=== PATIENT | female | born 1950 | race African-American/Black ===

== ENCOUNTER 2016-03-12 12:27 | Emergency (ER) | payer MEDICARE, OTHER ==
[~2016-03-12] VITALS: Ht 167.6 cm; Wt 54.0 kg
[~2016-03-12 12:27] MED LIST: ATOR20TA PO; CALTTAB5 PO; Calcium Carbonate CHEW; DARU600 PO; FENO160T2 PO; FERR324T4 PO; FOSA70TA PO; FURO1TAB93 PO; GABA100C4 PO; KLOR20TA6 PO; LATA0.00 OP; LEVO50TA4 PO; MIRTA15 PO; NITR-29 PO; PROT40TA PO; RALT400 PO; RITO100 PO; SENE8.6T PO; SUPETAB30 PO; TRUVTAB2 PO
[2016-03-12 12:34] VITALS: BP 93/58; PULSE 82; RESP 20; TEMP 98.6; O2SAT 99
[2016-03-12] MEDS ORDERED: FOSA70TA PO (13:03)
[2016-03-12] MEDS ORDERED: ATOR20TA15 PO (13:03)
[2016-03-12 13:05] LABS: AUTOMATED NEUTROPHIL # 10.5 TH/MM3 (1.8-7.7); BASOPHIL # 0.1 TH/MM3 (0-0.2); BASOPHIL % 0.7 % (0.0-2.0); EOSINOPHIL # 0.1 TH/MM3 (0-0.4); EOSINOPHIL % 0.7 % (0.0-4.0); LYMPH % 21.2 % (9.0-44.0); MEAN CELL VOLUME 92.4 FL (80.0-100.0); MEAN CORPUSCULAR HEMOGLOBIN 29.2 PG (27.0-34.0); MEAN CORPUSCULAR HGB CONC 31.6 % (32.0-36.0); MONO % 3.7 % (0.0-8.0); NEUT % 73.7 % (16.0-70.0); PLATELET COUNT 397 TH/MM3 (150-450); RED BLOOD COUNT 3.35 MIL/MM3 (4.00-5.30); RED CELL DISTRIBUTION WIDTH 20.2 % (11.6-17.2); WHITE BLOOD COUNT 14.3 TH/MM3 (4.0-11.0)
[2016-03-12 13:06] LABS: HEMO FLAGS AUTO DIFF
[2016-03-12] MEDS ORDERED: COLA100C3 PO (13:07)
[2016-03-12] MEDS ORDERED: CALTTAB PO (13:07)
[2016-03-12] MEDS ORDERED: TUMS500C CHEW (13:07)
--- NOTE | 2016-03-12 13:08 | PD ---
HPI Chief Complaint: General Weakness Time Seen by Provider: 12:47 Travel History International Travel<30 days: No Contact w/Intl Traveler<30days: No Traveled to known affect area: No History of Present Illness HPI 65-year-old woman apparently brought over the patient's request because she's been fatigued ongoing for weeks to months. She is a history of HIV and follows with Dr. Castillo. She reports her most recent viral loads have been undetectable. EMS reports this is been ongoing for some time. Patient states she is here for "everything" including fatigue is been worse the past couple weeks. She is not sleeping well. She feels very tired. She has not been eating well. She also complains of some headaches. History Past Medical History Narrative Medical HIV Anxiety and depression hyperlipidemia Hypertension Hypothyroidism GERD Tetanus Vaccination: > 5 Years Menopausal: Yes Social History Alcohol Use: No Tobacco Use: No (quit) Allergies-Medications (Allergen,Severity, Reaction): Coded Allergies: Od (Verified Allergy, Severe, 03/12/16) Reported Meds & Prescriptions Reported Meds & Active Scripts Active Reported Truvada (Emtricitabine-Tenofovir Disoproxil Fumarate) 200-300 Mg Tab 1 Tab PO DAILY @ 1200 Prochlorperazine Maleate 10 Mg Tab 10 Mg PO TID PRN Milk of Magnesia Liq (Magnesium Hydroxide) 400 Mg/5 Ml Susp 30 Ml PO Q4HR PRN Loperamide (Loperamide HCl) 2 Mg Cap 2 Mg PO DIRECTED PRN Give two capsules for the initial dose then, One capsule after each loose stool. Not to exceed 8 capsules per day. Fleet Enema Rectal (Sodium Phosphates Rectal) 7-19 Gm/118 Ml Enem 118 Ml RECTAL DIRECTED PRN Dulcolax Supp (Bisacodyl) 10 Mg Supp 10 Mg RECTAL DIRECTED PRN Mapap (Acetaminophen) 325 Mg Tab 650 Mg PO Q4HR PRN Mylanta Liq (Lowosnup-Egmbivdlr-Ysyayucnpbw Liq) 200-200-20 Mg/5 Ml Susp 30 Ml PO Q4HR PRN Take between meals or as directed. Shake well. Maximum 120 ml/24 hrs. Latanoprost Opth Drops (Latanoprost) 0.005% Drops 1 Drop EACH EYE HS Refrigerate until opened. [id number] (Ascorbic Acid) 1,000 Mg Tab 1,000 Mg PO DAILY B-12 (Cyanocobalamin) 1,000 Mcg Subl 1,000 Mcg PO BID Tivicay (Dolutegravir Sodium) 50 Mg Tab 50 Mg PO DAILY Thera-M (Multiple Vitamins W/ Minerals) 1 Tab 1 Tab PO DAILY Senna-S 8.6-50 mg (Sennosides-Docusate Sodium) 1 Tab Tab 1 Tab PO TID Prezcobix (Darunavir-Cobicistat) 800-150 Mg Tab 1 Tab PO DAILY K-Tab (Potassium Chloride) 20 Meq Tab 40 Meq PO DAILY Miralax Powder (Polyethylene Glycol 3350 Powder) 17 Gm Powd 17 Gm PO DAILY Mix and dissolve one measuring cap-ful (17 grams) in water or juice. Omeprazole 20 Mg Cap 20 Mg PO DAILY Mirtazapine 15 Mg Tab 15 Mg PO HS Mobic (Meloxicam) 7.5 Mg Tab 7.5 Mg PO DAILY Levothyroxine (Levothyroxine Sodium) 50 Mcg Tab 50 Mcg PO DAILY Lortab (Hydrocodone-Acetaminophen) 5-325 Mg Tab 1 Tab PO TID Glucosamine (Glucosamine Sulfate) 500 Mg Cap 500 Mg PO DAILY Gabapentin 300 Mg Cap 300 Mg PO Q8HR Lasix (Furosemide) 40 Mg Tab 40 Mg PO DAILY @ 1300 Ferrous Sulfate 325 Mg Tab 325 Mg PO TID Fenofibrate 160 Mg Tab 160 Mg PO DAILY Colace (Docusate Sodium) 100 Mg Cap 100 Mg PO TID Caltrate 600+D (Calcium Carbonate-Cholecalciferol) 600-800 Mg-Unit Tab 1 Tab PO BID Tums (Calcium Carbonate (Antacid)) 500 Mg Chew 500 Mg CHEW Q12HR PRN Atorvastatin (Atorvastatin Calcium) 20 Mg Tab 20 Mg PO HS Fosamax (Alendronate Sodium) 70 Mg Tab 70 Mg PO Q7D Review of Systems Except as stated in HPI: all other systems reviewed are Neg Physical Exam Narrative GENERAL: Chronically ill-appearing 65-year-old woman, no acute distress. SKIN: Warm and dry. HEAD: Atraumatic. Normocephalic. CARDIOVASCULAR: Regular rate and rhythm. No murmur appreciated. RESPIRATORY: No accessory muscle use. Clear to auscultation. Breath sounds equal bilaterally. GASTROINTESTINAL: Abdomen soft, non-tender, nondistended. Hepatic and splenic margins not palpable. MUSCULOSKELETAL: No obvious deformities. No edema. NEUROLOGICAL: Awake and alert. No obvious cranial nerve deficits. Motor grossly within normal limits. Normal speech. PSYCHIATRIC: Flat affect. Data Data Last Documented VS Vital Signs Date Time Temp Pulse Resp B/P Pulse Ox O2 Delivery O2 Flow Rate FiO2 03/12/16 12:34 98.6 82 20 93/58 99 Orders Complete Blood Count With Diff (03/12/16 12:43) Comprehensive Metabolic Panel (03/12/16 12:43) Urinalysis - C+S If Indicated (03/12/16 12:43) Urine Culture (03/12/16 12:55) Labs Laboratory Tests Test 03/12/16 12:55 White Blood Count 14.3 TH/MM3 Red Blood Count 3.35 MIL/MM3 Hemoglobin 9.8 GM/DL Hematocrit 31.0 % Mean Corpuscular Volume 92.4 FL Mean Corpuscular Hemoglobin 29.2 PG Mean Corpuscular Hemoglobin 31.6 % Concent Red Cell Distribution Width 20.2 % Platelet Count 397 TH/MM3 Mean Platelet Volume 8.8 FL Neutrophils (%) (Auto) 73.7 % Lymphocytes (%) (Auto) 21.2 % Monocytes (%) (Auto) 3.7 % Eosinophils (%) (Auto) 0.7 % Basophils (%) (Auto) 0.7 % Neutrophils # (Auto) 10.5 TH/MM3 Lymphocytes # (Auto) 3.0 TH/MM3 Monocytes # (Auto) 0.5 TH/MM3 Eosinophils # (Auto) 0.1 TH/MM3 Basophils # (Auto) 0.1 TH/MM3 CBC Comment AUTO DIFF Urine Color STRAW Urine Turbidity MARKED Urine pH 6.5 Urine Specific [place] 1.008 Urine Protein 100 mg/dL Urine Glucose (UA) TRACE mg/dL Urine Ketones NEG mg/dL Urine Occult Blood SMALL Urine Nitrite NEG Urine Bilirubin NEG Urine Urobilinogen LESS THAN 2.0 MG/DL Urine Leukocyte Esterase LARGE Urine RBC 0-3 /hpf Urine WBC 15-19 /hpf Urine WBC Clumps OCC Urine Squamous Epithelial > 8 /hpf Cells Urine Renal Epithelial Cells 0-5 /hpf Urine Bacteria MANY /hpf Microscopic Urinalysis Comment CATH-CULTURE IND Sodium Level 141 MEQ/L Potassium Level 3.0 MEQ/L Chloride Level 112 MEQ/L Carbon Dioxide Level 19.9 MEQ/L Anion Gap 9 MEQ/L Blood Urea Nitrogen 13 MG/DL Creatinine 2.14 MG/DL Estimat Glomerular Filtration 28 ML/MIN Rate Random Glucose 88 MG/DL Calcium Level 7.7 MG/DL Total Bilirubin 0.4 MG/DL Aspartate Amino Transf 39 U/L (AST/SGOT) Alanine Aminotransferase 14 U/L (ALT/SGPT) Alkaline Phosphatase 138 U/L Total Protein 6.4 GM/DL Albumin 1.9 GM/DL [facility] Medical Decision Making Medical Screen Exam Complete: Yes Emergency Medical Condition: Yes Interpretation(s) LABS: CBC remarkable for leukocytosis, mild anemia CMP hypokalemia. UA was some question of pyuria, suggestive of UTI. Differential Diagnosis Weakness, depression, debility, anemia, electrolyte abnormality, other Narrative Course Medical decision making 65-year-old woman generalized weakness and fatigue. Doesn't have any acute findings. We'll check basic labs and UA, discharge senior care, follow-up with physician there. Diagnosis Primary Impression: UTI (lower urinary tract infection) Additional Impression: Hypokalemia Patient Instructions: General Instructions Additional Instructions: Take antibiotics as prescribed. Double your current dose of potassium to 40 meq twice daily for the next 7 days and have repeat labs done with your primary physician. Follow-up with her primary physician. Return to the emergency department for any new or worsening symptoms. Med/Other Pt SpecificInfo: Prescription(s) given Scripts Cephalexin (Keflex)500 Mg [id number] Mg PO Q8H 7 Days Ref 0 Prov:Gelacio Mclaughlin MD 03/12/16 Potassium Chloride ER (K-Tab)20 Meq Tab40 Meq PO BID 7 Days Ref 0 Prov:Gelacio Mclaughlin MD 03/12/16 Disposition: 01 DISCHARGE HOME Condition: Stable Gelacio Mclaughlin MD Mar 12, 2016 13:08
[2016-03-12] MEDS ORDERED: FENO160T PO (13:09)
[2016-03-12] MEDS ORDERED: FERR325T PO (13:09)
[2016-03-12 13:16] LABS: BLOOD, URINE SMALL (NEG); GLUCOSE,URINE TRACE mg/dL (NEG); KETONE, URINE NEG (NEG); NITRITE,URINE NEG (NEG); PH, URINE 6.5 (5.0-8.5); URINE COLOR STRAW (YELLW/STRAW)
[2016-03-12 13:18] LABS: BACTERIA, URINE MANY /hpf; COMMENT (UR) CATH-CULTURE IND; CULTURE IF INDICATED CATH CULTURE IND; RBC, URINE 0-3 /hpf (0-3); SQUAMOUS EPITHELIAL CELL URINE > 8 /hpf (0-5); WBC, URINE 15-19 /hpf (0-5)
[2016-03-12 13:19] LABS: RENAL EPITHELIAL CELLS 0-5 /hpf
[2016-03-12] MEDS ORDERED: GLUC500C5 PO (13:19)
[2016-03-12] MEDS ORDERED: GABA300C5 PO (13:19)
[2016-03-12] MEDS ORDERED: CYAN100025 PO (13:19)
[2016-03-12] MEDS ORDERED: HYDR-3533 PO (13:19)
[2016-03-12] MEDS ORDERED: OMEP20CA2 PO (13:19)
[2016-03-12] MEDS ORDERED: MIRTA15 PO (13:19)
[2016-03-12] MEDS ORDERED: MOBI7.5T PO (13:19)
[2016-03-12] MEDS ORDERED: LEVO50TA4 PO (13:19)
[2016-03-12] MEDS ORDERED: DOLU1TAB PO (13:19)
[2016-03-12] MEDS ORDERED: POTA1TAB4 PO ×2 (13:19→13:45)
[2016-03-12] MEDS ORDERED: SENN8.6T19 PO (13:19)
[2016-03-12] MEDS ORDERED: MIRA33504 PO (13:19)
[2016-03-12] MEDS ORDERED: THERTAB17 PO (13:19)
[2016-03-12] MEDS ORDERED: FURO1TAB60 PO (13:19)
[2016-03-12] MEDS ORDERED: DARU1TAB2 PO (13:19)
[2016-03-12 13:20] LABS: ALKALINE PHOSPHATASE 138 U/L (45-117); TOTAL BILIRUBIN ADULT 0.4 MG/DL (0.2-1.0)
[2016-03-12 13:21] LABS: ALT (GPT) 14 U/L (10-53); ANION GAP 9 MEQ/L (5-15); AST (GOT) 39 U/L (15-37); BICARBONATE 19.9 MEQ/L (21.0-32.0); BLOOD UREA NITROGEN 13 MG/DL (7-18); CHLORIDE 112 MEQ/L (98-107); GLOMERULAR FILTRATION RATE 28 ML/MIN (>89); SODIUM (NA) 141 MEQ/L (136-145)
[2016-03-12] MEDS ORDERED: MAPA325T PO (13:22)
[2016-03-12] MEDS ORDERED: LATA0.002 EACH EYE (13:22)
[2016-03-12] MEDS ORDERED: ASCO10002 PO (13:22)
[2016-03-12] MEDS ORDERED: MYLASUS2 PO (13:22)
[2016-03-12] MEDS ORDERED: DULC10SU3 RECTAL (13:23)
[2016-03-12] MEDS ORDERED: LOPE2CAP PO (13:25)
[2016-03-12] MEDS ORDERED: FLEEENE3 RECTAL (13:25)
[2016-03-12] MEDS ORDERED: MILKSUS PO (13:27)
[2016-03-12] MEDS ORDERED: PROC10TA PO (13:27)
[2016-03-12] MEDS ORDERED: EMTR1TAB PO (13:37)
[2016-03-12 13:42] LABS: METAMYELOCYTES 1 % (0-1); NEUTROPHIL # MANUAL DIFF 11.9 TH/MM3 (1.8-7.7); PLATELET ESTIMATE SMEAR NORMAL (NORMAL); PLATELET MORPHOLOGY NORMAL (NORMAL); POLYS (SEG NEUTROPHILS) 82 % (16-70); SCAN/DIFF FINAL DIFF MANUAL; WBC DIFF SAMPLE 100
[2016-03-12] MEDS ORDERED: CEPH-460 PO (13:45)
== END 2016-03-12 18:32 | disposition home or self-care (01) ==
LOC: NEPA 12:27
DX: N39.0 Urinary tract infection, site not specified (principal); R51 Headache; E78.5 Hyperlipidemia, unspecified; I10 Essential (primary) hypertension; E03.9 Hypothyroidism, unspecified; Z87.891 Personal history of nicotine dependence
CPT/HCPCS: 80053; 81001; 85007; 85027; 87086; 99283

== ENCOUNTER 2016-04-02 15:39 | Inpatient (IN) | payer MEDICARE, OTHER ==
[2016-04-02] VITALS (7 sets, daily range): BP systolic 82–138; BP diastolic 52–66; PULSE 95–115; RESP 18–20; TEMP 97.8–98.9; O2SAT 98–100
[~2016-04-02] VITALS: Ht 165.1 cm; Wt 56.3 kg
[~2016-04-02 15:39] MED LIST changes: +ASCO10002 PO; -ATOR20TA PO; +ATOR20TA15 PO; +CALTTAB PO; -CALTTAB5 PO; +CEPH-460 PO; +COLA100C3 PO; +CYAN100025 PO; -Calcium Carbonate CHEW; +DARU1TAB2 PO; -DARU600 PO; +DOLU1TAB PO; +DULC10SU3 RECTAL; +EMTR1TAB PO; +FENO160T PO; -FENO160T2 PO; -FERR324T4 PO; +FERR325T PO; +FLEEENE3 RECTAL; +FURO1TAB60 PO; -FURO1TAB93 PO; -GABA100C4 PO; +GABA300C5 PO; +GLUC500C5 PO; +HYDR-3533 PO; -KLOR20TA6 PO; -LATA0.00 OP; +LATA0.002 EACH EYE; +LOPE2CAP PO; +MAPA325T PO; +MILKSUS PO; +MIRA33504 PO; +MOBI7.5T PO; +MYLASUS2 PO; -NITR-29 PO; +OMEP20CA2 PO; +POTA1TAB4 PO; +PROC10TA PO; -PROT40TA PO; -RALT400 PO; -RITO100 PO; -SENE8.6T PO; +SENN8.6T19 PO; -SUPETAB30 PO; +THERTAB17 PO; -TRUVTAB2 PO; +TUMS500C CHEW
[2016-04-02] MEDS ORDERED: ONDANSETRON HCL 4 MG/2 ML VIAL IV ONE (16:00)
[2016-04-02] MEDS ORDERED: SODIUM CHLORID 0.9% 500 ML INJ 500 ML IV ONE (16:00)
--- NOTE | 2016-04-02 16:04 | PD ---
HPI Chief Complaint: Abnormal Results Time Seen by Provider: 16:02 Travel History International Travel<30 days: No Contact w/Intl Traveler<30days: No Traveled to known affect area: No History of Present Illness HPI 65-year-old Afro-[place] female coming in from the nursing facility with complaints of decreased food intake, abdominal pain, and refusing to take her meds. Patient has a history of HIV, chronic pain, and mood disorder. Patient is alert and answers appropriately. She complains of pain in the left upper abdomen and central epigastric region. Patient complains of nausea, but no vomiting. She states she has been moving her bowels without difficulty. Patient is allergic to Do. PFSH Past Medical History Anemia: Yes Autoimmune Disease: Yes (AIDS) High Cholesterol: Yes Diminished Hearing: No Genitourinary: Yes (GENITAL HERPES) Hypertension: Yes Immune Disorder: Yes (HIV) Menopausal: Yes Ectopic : Yes (1975) Past Surgical History Abdominal Surgery: Yes (1993---"CYST REMOVED R.SIDE OF ABDOMEN") Social History Alcohol Use: No Tobacco Use: No (quit) Substance Use: No (PATIENT DENIED DRUG USE) Allergies-Medications (Allergen,Severity, Reaction): Coded Allergies: Do (Verified Allergy, Severe, 04/02/16) Reported Meds & Prescriptions Reported Meds & Active Scripts Active Reported Prochlorperazine Maleate 10 Mg Tab 10 Mg PO TID PRN Prochlorperazine Supp (Prochlorperazine) 25 Mg Supp 25 Mg RECTAL QID Zoloft (Sertraline HCl) 25 Mg Tab 25 Mg PO DAILY Megace Liq (Megestrol Acetate) 40 Mg/Ml Susp 400 Mg PO DAILY Descovy (Emtricitabine-Tenofovir Alafenamide) 200-25 mg Tab 1 Tab PO DAILY Potassium Chloride ER (Potassium Chloride) 20 Meq Tab 40 Meq PO DAILY Calcium 600 with Vitamin D (Calcium Carbonate-Cholecalciferol) 600-400 mg-Unit Tab 1 Tab PO BID Milk of Magnesia Liq (Magnesium Hydroxide) 400 Mg/5 Ml Susp 30 Ml PO Q4HR PRN Loperamide (Loperamide HCl) 2 Mg Cap 2 Mg PO DIRECTED PRN Give two capsules for the initial dose then, One capsule after each loose stool. Not to exceed 8 capsules per day. Fleet Enema Rectal (Sodium Phosphates Rectal) 7-19 Gm/118 Ml Enem 118 Ml RECTAL DIRECTED PRN Dulcolax Supp (Bisacodyl) 10 Mg Supp 10 Mg RECTAL DIRECTED PRN Mapap (Acetaminophen) 325 Mg Tab 650 Mg PO Q4HR PRN Mylanta Liq (Kbjwrcsq-Vvewjsiyb-Kfddnjnoldp Liq) 200-200-20 Mg/5 Ml Susp 30 Ml PO Q4HR PRN Take between meals or as directed. Shake well. Maximum 120 ml/24 hrs. Latanoprost Opth Drops (Latanoprost) 0.005% Drops 1 Drop EACH EYE HS Refrigerate until opened. [id number] (Ascorbic Acid) 1,000 Mg Tab 1,000 Mg PO DAILY B-12 (Cyanocobalamin) 1,000 Mcg Subl 1,000 Mcg PO BID Tivicay (Dolutegravir Sodium) 50 Mg Tab 50 Mg PO DAILY Thera-M (Multiple Vitamins W/ Minerals) 1 Tab 1 Tab PO DAILY Senna-S 8.6-50 mg (Sennosides-Docusate Sodium) 1 Tab Tab 1 Tab PO TID Prezcobix (Darunavir-Cobicistat) 800-150 Mg Tab 1 Tab PO DAILY Miralax Powder (Polyethylene Glycol 3350 Powder) 17 Gm Powd 17 Gm PO DAILY Mix and dissolve one measuring cap-ful (17 grams) in water or juice. Omeprazole 20 Mg Cap 20 Mg PO DAILY Levothyroxine (Levothyroxine Sodium) 50 Mcg Tab 50 Mcg PO DAILY Lortab (Hydrocodone-Acetaminophen) 5-325 Mg Tab 1 Tab PO TID Gabapentin 300 Mg Cap 300 Mg PO Q8HR Lasix (Furosemide) 40 Mg Tab 40 Mg PO DAILY @ 1300 Ferrous Sulfate 325 Mg Tab 325 Mg PO TID Fenofibrate 160 Mg Tab 160 Mg PO DAILY Colace (Docusate Sodium) 100 Mg Cap 100 Mg PO TID Tums (Calcium Carbonate (Antacid)) 500 Mg Chew 500 Mg CHEW Q12HR Atorvastatin (Atorvastatin Calcium) 20 Mg Tab 20 Mg PO HS Fosamax (Alendronate Sodium) 70 Mg Tab 70 Mg PO Q7D Review of Systems Except as stated in HPI: all other systems reviewed are Neg General / Constitutional: No: Fever Eyes: No: Visual changes HENT: No: Headaches Cardiovascular: No: Chest Pain or Discomfort Respiratory: No: Shortness of Breath Gastrointestinal: Positive: Nausea, Abdominal Pain, No: Vomiting, Diarrhea Genitourinary: No: Dysuria Musculoskeletal: No: Pain Skin: No Rash Neurologic: No: Weakness Psychiatric: No: Depression Endocrine: No: Polydipsia Hematologic/Lymphatic: No: Easy Bruising Physical Exam Narrative GENERAL: SKIN: Warm and dry. HEAD: Atraumatic. Normocephalic. EYES: Pupils equal and round. No scleral icterus. No injection or drainage. ENT: No nasal bleeding or discharge. Mucous membranes pink and moist. NECK: Trachea midline. No JVD. CARDIOVASCULAR: Regular rate and rhythm. RESPIRATORY: No accessory muscle use. Clear to auscultation. Breath sounds equal bilaterally. GASTROINTESTINAL: Abdomen soft, non-tender, nondistended. Hepatic and splenic margins not palpable. MUSCULOSKELETAL: Extremities without clubbing, cyanosis, or edema. No obvious deformities. NEUROLOGICAL: Awake and alert. No obvious cranial nerve deficits. Motor grossly within normal limits. Five out of 5 muscle strength in the arms and legs. Normal speech. PSYCHIATRIC: Appropriate mood and affect; insight and judgment normal. Data Data Last Documented VS Vital Signs Date Time Temp Pulse Resp B/P Pulse Ox O2 Delivery O2 Flow Rate FiO2 04/02/16 19:31 100 18 138/58 99 Room Air 04/02/16 15:58 97.8 Orders Electrocardiogram (04/02/16 15:54) Complete Blood Count With Diff (04/02/16 15:54) Comprehensive Metabolic Panel (04/02/16 15:54) Prothrombin Time / Inr (Pt) (04/02/16 15:54) Act Partial Throm Time (Ptt) (04/02/16 15:54) Lactic Acid Sepsis Protocol (04/02/16 15:54) Magnesium (Mg) (04/02/16 15:54) Lipase (04/02/16 15:54) Ckmb (Isoenzyme) Profile (04/02/16:54) Troponin I (04/02/16 15:54) Urinalysis - C+S If Indicated (04/02/16 15:54) Blood Culture (04/02/16 15:54) Chest, Single Ap (04/02/16 15:54) Blood Glucose (04/02/16 15:54) Ecg Monitoring (04/02/16 15:54) Iv Access Insert/Monitor (04/02/16 15:54) Oximetry (04/02/16 15:54) Oxygen Administration (04/02/16 15:54) Ondansetron Inj (Zofran Inj) (04/02/16 16:00) Ct Abd/Pel W Iv Contrast(Rout) (04/02/16 15:54) Sodium Chlorid 0.9% 500 Ml Inj (Ns 500 M (04/02/16 16:00) Oral Contrast - Adult (04/02/16 16:03) Diatrizoate Liq ( Gastrocain Liq) (04/02/16 16:31) Sodium Chlor 0.9% 1000 Ml Inj (Ns 1000 M (04/02/16 17:15) Influenzae A/B Antigen (04/02/16 17:13) Cath For Specimen (04/02/16 17:31) Urine Culture (04/02/16 17:50) Ceftriaxone Inj (Rocephin Inj) (04/02/16 20:00) Admit Order (Ed Use Only) (04/02/16 20:17) Labs Laboratory Tests Test 04/02/16 04/02/16 16:00 17:50 White Blood Count 14.3 TH/MM3 Red Blood Count 3.88 MIL/MM3 Hemoglobin 11.7 GM/DL Hematocrit 36.0 % Mean Corpuscular Volume 92.7 FL Mean Corpuscular Hemoglobin 30.1 PG Mean Corpuscular Hemoglobin 32.5 % Concent Red Cell Distribution Width 16.0 % Platelet Count 614 TH/MM3 Mean Platelet Volume 8.4 FL Neutrophils (%) (Auto) 82.1 % Lymphocytes (%) (Auto) 14.5 % Monocytes (%) (Auto) 2.9 % Eosinophils (%) (Auto) 0.3 % Basophils (%) (Auto) 0.2 % Neutrophils # (Auto) 11.7 TH/MM3 Lymphocytes # (Auto) 2.1 TH/MM3 Monocytes # (Auto) 0.4 TH/MM3 Eosinophils # (Auto) 0.0 TH/MM3 Basophils # (Auto) 0.0 TH/MM3 CBC Comment DIFF FINAL Differential Comment Prothrombin Time 11.8 SEC Prothromb Time International 1.1 RATIO Ratio Activated Partial 28.9 SEC Thromboplast Time Sodium Level 132 MEQ/L Potassium Level 3.1 MEQ/L Chloride Level 104 MEQ/L Carbon Dioxide Level 10.2 MEQ/L Anion Gap 18 MEQ/L Blood Urea Nitrogen 12 MG/DL Creatinine 1.45 MG/DL Estimat Glomerular Filtration 44 ML/MIN Rate Random Glucose 85 MG/DL Lactic Acid Level 1.9 mmol/L Calcium Level 9.3 MG/DL Magnesium Level 2.4 MG/DL Total Bilirubin 0.5 MG/DL Aspartate Amino Transf 31 U/L (AST/SGOT) Alanine Aminotransferase 12 U/L (ALT/SGPT) Alkaline Phosphatase 93 U/L Total Creatine Kinase 71 U/L Troponin I 0.04 NG/ML Total Protein 7.2 GM/DL Albumin 2.6 GM/DL Lipase 476 U/L Urine Color COLORLESS Urine Turbidity CLEAR Urine pH 5.5 Urine Specific [place] 1.003 Urine Protein TRACE mg/dL Urine Glucose (UA) NEG mg/dL Urine Ketones 10 mg/dL Urine Occult Blood TRACE Urine Nitrite POS Urine Bilirubin NEG Urine Urobilinogen LESS THAN 2.0 MG/DL Urine Leukocyte Esterase LARGE Urine RBC 2 /hpf Urine WBC 7 /hpf Urine Bacteria FEW /hpf Microscopic Urinalysis Comment CATH-CULTURE IND MDM Medical Decision Making Medical Screen Exam Complete: Yes Emergency Medical Condition: Yes Medical Record Reviewed: Yes Differential Diagnosis Generalized weakness. Abdominal pain. Electrolyte imbalance. Loss of appetite. Infection. Narrative Course Patient is medically stable at time of exam. Labs ordered including CBC, CMP, PT PTT and INR, lipase, urinalysis, lactic acid , blood cultures 2. Rapid influenza is negative for both a and B influenza. IV access is obtained patient is given a 500 mL normal saline bolus. EKG is ordered. Showing sinus tachycardia with nonspecific ST changes. This was reviewed with Dr. Lynn. CBC slight leukocytosis at 14.3. Platelet count is elevated at 614. CMP shows a sodium of 132. Potassium 3.1. Covered access is low at 10.2. Anion gap is 18. Creatinine is 1.45. Albumin is low at 2.6. Lipase is elevated 476. Patient is given an additional 1 L normal saline bolus. Coagulation studies show PT of 11.8. INR 1.1. PTT is 28.9. Urinalysis is suggestive of urinary tract infection. Chest x-ray shows no acute cardiopulmonary disease, only severe degenerative arthrosis arthritis to both shoulders. Per radiologist. Abdominal CT with oral and IV contrast shows renal stones, but no acute process per radiology. Patient is given 1 g Rocephin IV. Patient is discussed and seen with Dr. Angulo. He recommends admission for urinary tract infection with metabolic acidosis. 1950 hrs. call was placed to the [facility] hospitalist group for admission. 2016 hrs. call returned the patient was discussed and the patient was admitted. Diagnosis Primary Impression: UTI (lower urinary tract infection) Additional Impression: Metabolic acidosis Admitting Information Admitting Physician Requests: Admit Condition: Stable Mendez Holloway Apr 02, 2016 16:04
[2016-04-02] MEDS ORDERED: DIATRIZOATE MEGLUM/DIATRIZOATE SOD 9 ML CUP ONE (16:31)
--- NOTE | 2016-04-02 16:38 | PD ---
Physical Exam Date Seen by Provider: Apr 02, 2016 Narrative [facility] with HIV was sent for refusal to take medications Data Data Last Documented VS Vital Signs Date Time Temp Pulse Resp B/P Pulse Ox O2 Delivery O2 Flow Rate FiO2 04/02/16 16:02 99 Room Air 04/02/16 16:02 20 04/02/16 15:58 97.8 113 97/58 Orders Electrocardiogram (04/02/16 15:54) Complete Blood Count With Diff (04/02/16 15:54) Comprehensive Metabolic Panel (04/02/16 15:54) Prothrombin Time / Inr (Pt) (04/02/16 15:54) Act Partial Throm Time (Ptt) (04/02/16 15:54) Lactic Acid Sepsis Protocol (04/02/16 15:54) Magnesium (Mg) (04/02/16 15:54) Lipase (04/02/16 15:54) Ckmb (Isoenzyme) Profile (04/02/16 15:54) Troponin I (04/02/16 15:54) Urinalysis - C+S If Indicated (04/02/16 15:54) Blood Culture (04/02/16 15:54) Chest, Single Ap (04/02/16 15:54) Blood Glucose (04/02/16 15:54) Ecg Monitoring (04/02/16 15:54) Iv Access Insert/Monitor (04/02/16 15:54) Oximetry (04/02/16 15:54) Oxygen Administration (04/02/16 15:54) Ondansetron Inj (Zofran Inj) (04/02/16 16:00) Ct Abd/Pel W Iv Contrast(Rout) (04/02/16 15:54) Sodium Chlorid 0.9% 500 Ml Inj (Ns 500 M (04/02/16 16:00) Oral Contrast - Adult (04/02/16 16:03) Diatrizoate Liq ( Gastroview Liq) (04/02/16 16:31) MDM Supervised Visit with AQUILINO: Yes Narrative Course I, Dr. Lynn, have reviewed the advance practice practitioner's documentation and am in agreement, met with the patient face to face, made the diagnosis, and the medical decision making was done by me. *My assessment and Findings: This is a chronically ill appearing [facility] patient Didi Lynn MD Apr 02, 2016 16:38
[2016-04-02 16:43] LABS: AUTOMATED NEUTROPHIL # 11.7 TH/MM3 (1.8-7.7); BASOPHIL % 0.2 % (0.0-2.0); EOSINOPHIL % 0.3 % (0.0-4.0); HEMO FLAGS DIFF FINAL; LYMPH % 14.5 % (9.0-44.0); LYMPHOCYTE # 2.1 TH/MM3 (1.0-4.8); MEAN CELL VOLUME 92.7 FL (80.0-100.0); MEAN CORPUSCULAR HEMOGLOBIN 30.1 PG (27.0-34.0); MEAN CORPUSCULAR HGB CONC 32.5 % (32.0-36.0); MONO % 2.9 % (0.0-8.0); NEUT % 82.1 % (16.0-70.0); PLATELET COUNT 614 TH/MM3 (150-450); RED BLOOD COUNT 3.88 MIL/MM3 (4.00-5.30); WHITE BLOOD COUNT 14.3 TH/MM3 (4.0-11.0)
--- NOTE | 2016-04-02 16:44 | RADRPT ---
EXAM DATE/TIME: 04/02/2016 16:27 [facility] COMPARISON: CHEST SINGLE AP, November 23, 2014, 22:12. INDICATIONS : Fever, weakness MEDICAL HISTORY : HIV Hypertension. AIDS SURGICAL HISTORY : None. ENCOUNTER: Initial ACUITY: 1 day PAIN SCORE: 0/10 LOCATION: Bilateral chest FINDINGS: A single view of the chest demonstrates the lungs to be symmetrically aerated without evidence of mas s, infiltrate or effusion. The cardiomediastinal contours are unremarkable. Severe degenerative oste oarthritic changes involving both shoulders, unchanged from prior. Osseous structures are otherwise i ntact. CONCLUSION: 1. No acute cardiopulmonary process. 2. 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 Manuel López MD on April 02, 2016 at 16:42 Board Certified Radiologist. This report was verified electronically.
[2016-04-02 16:54] LABS: APTT (PATIENT) 28.9 SEC (24.3-30.1); INTERNATIONAL NORMALIZED RATIO 1.1 RATIO; PROTHROMBIN TIME - PATIENT 11.8 SEC (9.8-11.6)
[2016-04-02 17:08] LABS: ALKALINE PHOSPHATASE 93 U/L (45-117); ALT (GPT) 12 U/L (10-53); ANION GAP 18 MEQ/L (5-15); AST (GOT) 31 U/L (15-37); BICARBONATE 10.2 MEQ/L (21.0-32.0); BLOOD UREA NITROGEN 12 MG/DL (7-18); CHLORIDE 104 MEQ/L (98-107); GLOMERULAR FILTRATION RATE 44 ML/MIN (>89); MAGNESIUM 2.4 MG/DL (1.5-2.5); SODIUM (NA) 132 MEQ/L (136-145); TOTAL BILIRUBIN ADULT 0.5 MG/DL (0.2-1.0)
[2016-04-02 17:11] LABS: CREATINE KINASE 71 U/L (26-192); POTASSIUM 3.1 MEQ/L (3.5-5.1)
[2016-04-02] MEDS ORDERED: MEGE40S PO (17:14)
[2016-04-02] MEDS ORDERED: EMTR1TAB4 PO (17:14)
[2016-04-02] MEDS ORDERED: PROC25SU22 RECTAL (17:14)
[2016-04-02] MEDS ORDERED: CALC1TAB87 PO (17:14)
[2016-04-02] MEDS ORDERED: PROC10TA PO (17:14)
[2016-04-02] MEDS ORDERED: ZOLO25TA PO (17:14)
[2016-04-02] MEDS ORDERED: POTA-163 PO (17:14)
[2016-04-02] MEDS ORDERED: SODIUM CHLOR 0.9% 1000 ML INJ 1,000 ML IV ONE (17:15)
[2016-04-02 18:33] LABS: BACTERIA, URINE FEW /hpf; BLOOD, URINE TRACE (NEG); GLUCOSE,URINE NEG (NEG); KETONE, URINE 10 mg/dL (NEG); PH, URINE 5.5 (5.0-8.5); URINE COLOR COLORLESS (YELLW/STRAW)
[2016-04-02 18:34] LABS: COMMENT (UR) CATH-CULTURE IND; CULTURE IF INDICATED CATH CULTURE IND; NITRITE,URINE POS (NEG)
--- NOTE | 2016-04-02 19:12 | RADRPT ---
EXAM DATE/TIME: 04/02/2016 18:41 [facility] COMPARISON: No previous studies available for comparison. INDICATIONS : Abdominal pain. IV CONTRAST: 71 cc Omnipaque 350 (iohexol) IV ; Cumulative dose for multiple exams. ORAL CONTRAST: Partial prescribed oral contrast ingested. RADIATION DOSE: 5.26 CTDIvol (mGy) MEDICAL HISTORY : None SURGICAL HISTORY : None. ENCOUNTER: Initial ACUITY: 1 day PAIN SCALE: 4/10 LOCATION: Bilateral lower quadrant TECHNIQUE: Volumetric scanning of the abdomen and pelvis was performed. Using automated exposure control and adjustment of the mA and/or kV according to patient size, radiation dose was kept as low as reasonably achievable to obtain optimal diagnostic quality images. FINDINGS: There are three adjacent calcifications in the central aspect of the collecting system measuring 1.4, 1.6 and 1.1 cm in greatest dimension. These occupy much of the central aspect of the left collecting system and have a somewhat staghorn type calculus appearance. Significant hydronephr osis however is not seen. There is a smaller 3 mm nonobstructing calcification seen in the inferior left collecting system. There appears to be a possible 3 mm nonobstructing right renal stone seen. T here is some mild dilatation of the right collecting system and right proximal ureter. A ureteral st one is not seen. The left ureter is normal. There are cysts seen at the right kidney measuring up t o 1.4 cm. The liver, spleen, pancreas and adrenal glands are normal. There is layering calcifications seen dep endently in the gallbladder likely related to milk of calcium versus tiny stones. Significantly dilat ed bowel is not seen. The pelvic structures are grossly intact. The patient has degenerative change in the lumbar spine. There is destructive change of the femoral heads bilaterally with near total de struction of the femoral head on the left. CONCLUSION: 1. Nonobstructing renal stones being much more numerous and larger on the left side. The central prasanna cifications in the left kidney resemble a staghorn calculus. 2. Mild dilatation of the right collecting system and right ureter. This suggests there may have be en a passed stone. A stone in the right ureter is not seen. 3. Destructive changes at the femoral heads bilaterally. These changes appear chronic. These change s could be secondary to underlying process such as prior avascular necrosis, prior trauma or prior in flammatory change including infection or inflammatory arthritis. Marquis Galo MD on April 02, 2016 at 18:56 Board Certified Radiologist. This report was verified electronically.
[2016-04-02] MEDS ORDERED: cefTRIAXone INJ 1,000 MG in SODIUM CHLORIDE 0.9% INJ 100 ML IV ONE (20:00)
[2016-04-02] MEDS ORDERED: NALOXONE HCL 0.4 MG/ML AMP IV PRN (20:30)
[2016-04-02] MEDS ORDERED: SENNOSIDES 8.6 MG TAB PO PRN (20:30)
[2016-04-02] MEDS ORDERED: ACETAMINOPHEN 325 MG TAB PO PRN (20:30)
[2016-04-02] MEDS ORDERED: BISACODYL 10 MG SUPP PR PRN (20:30)
[2016-04-02] MEDS ORDERED: SODIUM CHLORIDE 0.9% FLUSH 5 ML FLUSH FLUSH PRN (20:30)
[2016-04-02] MEDS: HEPARIN SODIUM - SQ 10,000 UNITS/ML VIAL SQ SCH (20:43)
[2016-04-02] MEDS ORDERED: PILL SPLITTER OTHER PRN (21:00)
[2016-04-02] MEDS: FAMOTIDINE 20 MG TAB PO SCH (21:00)
[2016-04-02] MEDS: SODIUM CHLOR 0.9% 1000 ML INJ 1,000 ML IV SCH (21:20)
[2016-04-02] MEDS: SODIUM CHLORIDE 0.9% FLUSH 5 ML FLUSH FLUSH SCH (21:20)
[2016-04-03] VITALS (7 sets, daily range): BP systolic 82–96; BP diastolic 51–62; PULSE 70–103; RESP 18–20; TEMP 96.8–97.6; O2SAT 93–100
[2016-04-03] MEDS: SODIUM CHLOR 0.9% 1000 ML INJ 1,000 ML IV SCH ×2 (06:18→16:18)
[2016-04-03 06:58] LABS: AUTOMATED NEUTROPHIL # 13.6 TH/MM3 (1.8-7.7); BASOPHIL % 0.2 % (0.0-2.0); EOSINOPHIL % 0.2 % (0.0-4.0); HEMATOCRIT 31.6 % (35.0-46.0); LYMPH % 9.4 % (9.0-44.0); LYMPHOCYTE # 1.5 TH/MM3 (1.0-4.8); MEAN CELL VOLUME 92.3 FL (80.0-100.0); MEAN CORPUSCULAR HEMOGLOBIN 30.2 PG (27.0-34.0); MEAN CORPUSCULAR HGB CONC 32.7 % (32.0-36.0); MONO % 3.9 % (0.0-8.0); NEUT % 86.3 % (16.0-70.0); PLATELET COUNT 483 TH/MM3 (150-450); RED BLOOD COUNT 3.42 MIL/MM3 (4.00-5.30); WHITE BLOOD COUNT 15.7 TH/MM3 (4.0-11.0)
[2016-04-03 07:00] LABS: HEMO FLAGS AUTO DIFF
[2016-04-03 07:25] LABS: BICARBONATE 9.9 MEQ/L (21.0-32.0)
[2016-04-03] MEDS ORDERED: ALUMINUM/MAGNESIUM/SIMETH 30 ML CUP PO PRN (07:30)
[2016-04-03] MEDS ORDERED: SOD PHOSPHATE/SOD BIPHOSPHATE (ADULT) ENEMA 133ML RECTAL PRN (07:30)
[2016-04-03] MEDS ORDERED: MAGNESIUM HYDROXIDE SUSP 30 ML CUP PO PRN (07:30)
[2016-04-03] MEDS ORDERED: BISACODYL 10 MG SUPP RECTAL PRN (07:30)
[2016-04-03] MEDS ORDERED: ACETAMINOPHEN 325 MG TAB PO PRN (07:30)
[2016-04-03] MEDS ORDERED: LOPERAMIDE HCL 2 MG CAP PO PRN (07:30)
[2016-04-03 07:31] LABS: POTASSIUM 1.7 MEQ/L (3.5-5.1)
[2016-04-03 08:10] LABS: SCAN/DIFF AUTO DIFF CONFIRMED
[2016-04-03] MEDS: SODIUM CHLORIDE 0.9% FLUSH 5 ML FLUSH FLUSH SCH ×2 (08:19→20:50)
[2016-04-03] MEDS ORDERED: PILL SPLITTER OTHER PRN (08:30)
[2016-04-03] MEDS ORDERED: POTASSIUM CHLORIDE 20 MEQ CONTROLLED RELEASE TAB PO ONE (08:45)
[2016-04-03] MEDS ORDERED: POTASSIUM CHLORIDE 20 MEQ CONTROLLED RELEASE TAB PO SCH (09:00)
[2016-04-03] MEDS: CYANOCOBALAMIN 1,000 MCG TAB PO SCH ×2 (09:00→20:57)
[2016-04-03] MEDS ORDERED: PREZCOBIX PO SCH (09:00)
[2016-04-03] MEDS ORDERED: EMTRICITABINE PO SCH (09:00)
[2016-04-03] MEDS: MEGESTROL ACETATE SUSP 400 MG/10 ML CUP PO SCH (09:00)
[2016-04-03] MEDS ORDERED: cefTRIAXone INJ 1,000 MG in SODIUM CHLORIDE 0.9% INJ 100 ML IV SCH (09:00)
[2016-04-03] MEDS ORDERED: TENOFOVIR ALAFENAMIDE PO SCH (09:00)
[2016-04-03] MEDS ORDERED: DOLUTEGRAVIR SODIUM 50 MG TAB PO SCH (09:00)
--- NOTE | 2016-04-03 09:52 | MH ---
cc: LATONYA PELAYO DATE OF ADMISSION: 04/02/2016 DATE OF 1950 DATE OF ADMISSION April 02, [address] Latonya Pelayo. PRIMARY CARE DOCTOR Dr. Esequiel Polanco PRIMARY INFECTIOUS DOCTOR/HIV DOCTOR . REASON FOR ADMISSION Abdominal pain, nausea, vomiting. HISTORY OF PRESENTING ILLNESS The patient is a very pleasant 65-year-old -[place]ish female who was admitted with a significant past history of HIV, hypercholesterolemia, hypertension, hypothyroidism, GERD and genital herpes. The patient came to the ER because of referral from nursing facility because of complaining of decreased fluid intake abdominal pain and was unable to take her medication. As per the ER physician documentation, recently taking medications. As per the patient, she has no appetite and she has nausea as well as she vomited two times. She was having abdominal pain exacerbation for five weeks. This is on and off, was initially very mild and yesterday it was moderately severe in intensity. The patient states she continues to have nausea and that is why she cannot take any medication. The pain was less in the upper abdomen and also in the upper regions. There are no genitourinary symptoms. She denies any blood in her urine. She came to the ER and in the ER was evaluated by the ER physician. Workup was done and CT scan was done which shows the left kidney nonobstructing renal stones, numerous, enlarged on the left side and also some dilatation. Mild dilatation of the right collecting system and right ureter. This suggests may have been a passed stone. At present the patient has occasional pain as per the patient. She is feeling tired and weak. She has no nausea. She wants to drink water and she wants to eat some. She had her last bowel movement about 2-3 days ago. As per the patient, she has been told by Dr. Mendez that she her blood is acidic. There are no other associated symptoms. PAST MEDICAL HISTORY 1. HIV. 2. Hyperlipidemia 3. Hypertension. 4. Hypothyroidism. 5. Gastroesophageal reflux disease. 6. Genital herpes. PAST SURGICAL HISTORY Positive for history of cyst removed from the right side of the abdomen in 1993. MEDICATIONS Reviewed. Please see EMR. ALLERGIES The patient has allergy to berries. REVIEW OF SYSTEMS As described above, otherwise negative for 10 systems. SOCIAL HISTORY The patient does not drink. Quit smoking a long time ago. Used to do drugs a long time ago. He got HIV from her who is now. Lives in a nursing facility. FAMILY HISTORY Non-contributory. PHYSICAL EXAMINATION GENERAL: The patient is alert and oriented, thin built, ill-looking, cachectic look, lying on bed, very ill-looking, without any apparent cardiorespiratory discomfort. VITAL SIGNS: Afebrile. Pulse is 92, respiratory rate is 20, blood pressure was 87/55. HEENT: Head is atraumatic, normocephalic. Eyes - Sunken eyes. No conjunctival injection, no scleral icterus. Mouth unremarkable. No thrush noted. NECK: Supple. Negative increase in JVD. Central trachea. There are occasional few nodes, nontender, in the posterior neck region bilaterally in the posterior triangle in the bilateral neck region. CHEST: Clear to auscultation. CV: S1 and S2 audible. Unable to hear any S3 gallop. GI: Abdomen is soft, very minimally tender in the left upper quadrant and periumbilical region. No rebound, no guarding. No organomegaly. Positive bowel sounds. MUSCULOSKELETAL: Extremities with no cyanosis or pedal edema appreciated. There is decreased muscle mass. ENERGY ENGINEER: Alert and oriented. Normal facial features, moving her extremities. SKIN: Warm and dry. PSYCH: Appropriate mood and affect. INVESTIGATIONS WBC count was 15.7, hemoglobin was 11.7, now today 10.3, hematocrit was 36, today is 31.6, platelet count was 640 and today is 483. Sodium is 141, potassium was 3.1, today it is 1.78, chloride 115, CO2 of 9.9. Anion gap was 16. BUN 11, creatinine of 1.14. Glucose 72. Lipase is 488. PT is 11.8 and INR and APTT within normal limits. U/A shows urine ketones 10, occult blood trace. Urine nitrates positive, urine bilirubin negative. Urobilinogen less than 2. Urine leukocyte esterase large, RBCs 2, WBCs 7, urine bacteria a few. As per the patient she has on and off diarrhea and constipation and sometimes she needs laxatives, sometimes she needs diarrhea medication. RADIOLOGICAL DATA 1. Abdomen and pelvic CT was done which showed nonobstructive renal stone being much more numerous and larger on the left side. There is central calcification in the left kidney which resembles a staghorn calculus. 2. Mild dilatation of right collecting system and the right ureter. This suggests there may have been a passed stone. A stone in the right ureter is not seen. 3. History of changes at the femoral head bilaterally. These changes of appear chronic. This finding could be secondary to an underlying process such as prior avascular necrosis, prior trauma or prior inflammatory changes including infection or inflammatory arthritis. EKG was done which shows sinus tachy at rate of 114 beats per minute with questionable changes, questionable ST depression in the lateral leads. ASSESSMENT 1. Abdominal pain, nausea, vomiting. 2. UTI. 3. Renal calculus. 4. Metabolic acidosis. 5. Severe hypokalemia. 6. Mild renal insufficiency. 7. Increased lipase. 8. Leukocytosis secondary to above. 9. History of HIV. 10. Cachexia. 11. Malnutrition. 12. Anemia posthydration. 13. History of hyperlipidemia. 14. Hypertension history. 15. Hypothyroidism. 16. GERD. 17. History of genital herpes. PLAN 1. Admit inpatient. 2. IV antibiotics. 3. Consult neurology. 4. Consult Infectious Disease 5. IV fluids with bicarb. 6. Potassium replacement. 7. Check magnesium and phosphorus levels. 8. Discussed with pharmacist about medication. Continue some of home medications as indicated including HIV medications. 9. Discussed with the patient in detail. Discussed with RN. 10. P.o. diet. 11. Further recommendation to follow as per the patient progress CONDITION Guarded. Latonya Pelayo MD JP/KELLY /8:46 AM /9:05 AM
[2016-04-03] MEDS: POLYETHYLENE GLYCOL 17 GM PKG PO SCH (10:00)
[2016-04-03] MEDS: CALCIUM/VITAMIN D 250 MG/125 U TAB PO SCH ×2 (10:00→20:49)
[2016-04-03] MEDS: SODIUM BICARBONATE IV SCH (10:00)
[2016-04-03] MEDS: POTASSIUM CHLORIDE IV SCH (10:00)
[2016-04-03] MEDS: HEPARIN SODIUM - SQ 10,000 UNITS/ML VIAL SQ SCH ×2 (10:00→20:56)
[2016-04-03] MEDS: FENOFIBRATE 145 MG TAB PO SCH (10:00)
[2016-04-03] MEDS: [UNRECOGNIZED DRUG - OTHER] IV SCH (10:00)
[2016-04-03] MEDS: DOCUSATE SODIUM 50 MG/SENNA 8.6 MG TAB PO SCH ×3 (10:01→16:50)
[2016-04-03] MEDS: FAMOTIDINE 20 MG TAB PO SCH ×2 (10:02→20:47)
[2016-04-03] MEDS: LEVOTHYROXINE SODIUM 50 MCG TAB PO SCH (10:02)
[2016-04-03] MEDS: MULTIVITAMINS/MINERALS THERAPEUTIC TAB PO SCH (10:02)
[2016-04-03] MEDS: FERROUS SULFATE 325 MG (65 MG ELEMENTAL IRON) TAB PO SCH ×3 (10:02→16:50)
[2016-04-03] MEDS: CALCIUM CARBONATE 500 MG CHEWABLE TAB CHEW SCH ×2 (10:02→20:50)
[2016-04-03] MEDS: ASCORBIC ACID 500 MG TAB PO SCH (10:02)
[2016-04-03] MEDS: SERTRALINE HCL 50 MG TAB PO SCH (10:03)
[2016-04-03] MEDS: PANTOPRAZOLE SOD 20 MG DELAYED RELEASE TAB PO SCH (10:03)
[2016-04-03] MEDS: DOCUSATE SODIUM 100 MG CAP PO SCH ×3 (10:03→16:50)
[2016-04-03] MEDS: ACETAMINOPHEN/HYDROcodone 325 MG/5 MG TAB PO SCH ×3 (10:03→16:50)
[2016-04-03] MEDS: POTASSIUM CHLOR 20 MEQ PREMIX 100 ML IV SCH ×2 (10:08→12:10)
--- NOTE | 2016-04-03 11:17 | EKG ---
Date Performed: 04/02/2016 Time Performed: 16:19:07 PTAGE: 65 years EKG: SINUS TACHYCARDIA RIGHT ATRIAL ENLARGEMENT INFERIOR MYOCARDIAL INFARCTION ST DEPRESSION, CO NSIDER SUBENDOCARDIAL INJURY Compared to previous tracing, right atrial abnormality, inferior infarct and ST-T abnormalities are new. Clinical correlation needed. ABNORMAL ECG PREVIOUS TRACING : 11/28/2014 19.41 DOCTOR: Juliano Ruiz Interpretating Date/Time 04/03/2016 11:16:56
[2016-04-03 13:38] LABS: BICARBONATE 9.5 MEQ/L (21.0-32.0); MAGNESIUM 2.1 MG/DL (1.5-2.5)
--- NOTE | 2016-04-03 13:43 | PD.CONS ---
History of Present Illness Service Infectious disease Consult Requested By Dr Terrell Pelayo Reason for Consult Evaluate patient with fever Primary Care Physician Esequiel Polanco M.D. Diagnoses: History of Present Illness Patient seen and examined. Records reviewed. Patient is a very poor historian. Patient is a 65-year-old female with known history of HIV, came from the care home, brought into the hospital for further evaluation of abdominal pain , 2 by mouth intake, some nausea and vomiting, and inability to take her medication. She has some mild cough but denies any shortness of breath or any chest pain. The abdominal pain apparently has been present for at least 5 weeks. It has been on and off, and was initially very mild, but it started getting worse one day prior to admission. She has had previous hospitalization for UTI, currently denies any dysuria or any hematuria. She actually went to the emergency room on March 16, and evaluation revealed UTI. She was discharged on Keflex. It's unclear whether she had any fever, but documentation here since presentation, shows that her temperatures have been within normal limits. Her initial WBC was elevated. Chest x-ray was normal. CT and of the abdomen and pelvis showing presence of stones bilaterally, and there are some findings to suggest that she might have had stones that she passed on the right side. Her initial creatinine was greater than 2, and is down to normal. Patient states that her viral load has been undetectable, but she could not tell me what her last T-cell count was. She was last seen by Dr. Mendez her HIV doctor last week. Last November she was hospitalized for UTI and at that time her CD4 count was 569. Patient states that she has not had any change in her HIV medication. Patient still complains of abdominal pain and nausea, but has not had any vomiting. Infectious disease consultation requested to evaluate the patient. Review of Systems Constitutional: COMPLAINS OF: Fatigue, Change in appetite Eyes: DENIES: Eye pain Ears, nose, mouth, throat: DENIES: Nasal discharge, Oral lesions, Throat pain, Ear Pain, Running Nose, Sinus Pain Respiratory: COMPLAINS OF: Cough, DENIES: Sputum production, Shortness of breath Cardiovascular: DENIES: Chest pain, Palpitations Gastrointestinal: COMPLAINS OF: Abdominal pain, Nausea, Vomiting, Anorexia, DENIES: Diarrhea, Difficulty Swallowing Genitourinary: DENIES: Hematuria, Dysuria Musculoskeletal: DENIES: Joint pain, Muscle aches, Joint Swelling Integumentary: DENIES: Pruritus, Rash Hematologic/lymphatic: DENIES: Bruising Immunologic/allergic: DENIES: Eczema, Urticaria Neurologic: DENIES: Headache, Localized weakness Psychiatric: DENIES: Anxiety, Hallucinations, Agitation Past Family Social History Allergies: Coded Allergies: Do (Verified Allergy, Severe, 04/02/16) Past Medical History HIV, last CD4 count in November 22 Hypercholesterolemia Hypothyroidism Hypertension Genital herpes GERD Past Surgical History Cyst removed from the right side of the abdomen in 1993 Active Ordered Medications Tylenol Drury Antacids Fosamax Ascorbic acid Lipitor Dulcolax Calcium carbonate Os-Abhi D Rocephin Vitamin B12 Colace Pepcid TriCor Ferrous sulfate Neurontin Heparin Synthroid Imodium MOM Megace Multivitamin Zofran Protonix MiraLAX Potassium Nikia-Colace Senokot Zoloft Sodium bicarbonate Social History Came from the care home No smoking No alcohol abuse No illicit drug use Physical Exam Vital Signs Vital Signs Date Time Temp Pulse Resp B/P Pulse Ox O2 Delivery O2 Flow Rate FiO2 04/03/16 11:38 86 04/03/16 11:15 97.6 93 20 82/51 100 04/03/16 07:33 97.5 92 20 87/55 99 04/03/16 05:39 96.9 70 18 96/51 93 04/02/16 23:32 98.9 110 18 82/58 98 04/02/16 20:51 95 18 115/52 100 Room Air 04/02/16 19:31 100 18 138/58 99 Room Air 04/02/16 17:43 96 18 134/61 99 Room Air 04/02/16 16:02 99 Room Air 04/02/16 16:02 20 99 Room Air 04/02/16 15:58 97.8 113 20 97/58 100 Room Air 04/02/16 15:58 114 20 98 Room Air 04/02/16 15:45 115 20 118/66 99 Physical Exam GENERAL: This is a thin, well-developed female, awake, but slow to respond, looks chronically ill appearing, not in respiratory distress. SKIN: Cool and dry. Decreased turgor. No generalized rash or ecchymosis. HEAD: Atraumatic. Normocephalic. Has some temporal wasting. No scalp tenderness. EYES: [place] conjunctivae, sunken eyeballs. Pupils equal round and reactive. Extraocular motions intact. No scleral icterus. No injection or drainage. ENT: Nose without bleeding, or purulent drainage. Moist oral mucosa. Throat without erythema, or exudate. Uvula midline. Airway patent. No oral thrush. NECK: Trachea midline. Has some mild cervical lymphadenopathy. Supple, nontender, no meningeal signs. CARDIOVASCULAR: Regular rate and rhythm without murmurs, gallops, or rubs. RESPIRATORY: Clear to auscultation. Breath sounds equal bilaterally. No wheezes , rales, or rhonchi. GASTROINTESTINAL: Abdomen soft, nondistended, bowel sounds are present and normoactive, has diffuse abdominal tenderness, no guarding or rebound. No hepato -splenomegaly, or palpable masses. MUSCULOSKELETAL: Extremities without clubbing, cyanosis, or edema. No joint tenderness, effusion, or edema noted. No calf tenderness. Negative Homans sign bilaterally. Both feet are cool to touch. NEUROLOGICAL: Awake and alert. Cranial nerves II through XII intact. Motor grossly within normal limits. Normal speech. No Babinski or ankle clonus. PSYCH: Calm and cooperative LINE: PIV with no evidence if infection Laboratory Laboratory Tests Test 04/02/16 04/02/16 04/03/16 16:00 17:50 06:25 Prothrombin Time 11.8 Prothromb Time International 1.1 Ratio Activated Partial 28.9 Thromboplast Time Sodium Level 132 141 Potassium Level 3.1 1.7 Chloride Level 104 115 Carbon Dioxide Level 10.2 9.9 Anion Gap 18 16 Blood Urea Nitrogen 12 11 Creatinine 1.45 1.14 Estimat Glomerular Filtration 44 58 Rate Random Glucose 85 72 Lactic Acid Level 1.9 Calcium Level 9.3 8.5 Magnesium Level 2.4 Total Bilirubin 0.5 Aspartate Amino Transf 31 (AST/SGOT) Alanine Aminotransferase 12 (ALT/SGPT) Alkaline Phosphatase 93 Total Creatine Kinase 71 Troponin I 0.04 Total Protein 7.2 Albumin 2.6 Lipase 476 448 White Blood Count 14.3 15.7 Red Blood Count 3.88 3.42 Hemoglobin 11.7 10.3 Hematocrit 36.0 31.6 Mean Corpuscular Volume 92.7 92.3 Mean Corpuscular Hemoglobin 30.1 30.2 Mean Corpuscular Hemoglobin 32.5 32.7 Concent Red Cell Distribution Width 16.0 16.0 Platelet Count 614 483 Mean Platelet Volume 8.4 8.1 Neutrophils (%) (Auto) 82.1 86.3 Lymphocytes (%) (Auto) 14.5 9.4 Monocytes (%) (Auto) 2.9 3.9 Eosinophils (%) (Auto) 0.3 0.2 Basophils (%) (Auto) 0.2 0.2 Neutrophils # (Auto) 11.7 13.6 Lymphocytes # (Auto) 2.1 1.5 Monocytes # (Auto) 0.4 0.6 Eosinophils # (Auto) 0.0 0.0 Basophils # (Auto) 0.0 0.0 CBC Comment DIFF FINAL AUTO DIFF Differential Comment AUTO DIFF CONFIRMED Urine Color COLORLESS Urine Turbidity CLEAR Urine pH 5.5 Urine Specific [place] 1.003 Urine Protein TRACE Urine Glucose (UA) NEG Urine Ketones 10 Urine Occult Blood TRACE Urine Nitrite POS Urine Bilirubin NEG Urine Urobilinogen LESS THAN 2.0 Urine Leukocyte Esterase LARGE Urine RBC 2 Urine WBC 7 Urine Bacteria FEW Microscopic Urinalysis Comment CATH-CULTURE IND Date/Time Procedure Status Source Growth 04/02/16 17:55 Influenza Types A,B Antigen ([facility]) - Final Complete Nasal Washing NEGATIVE FOR FLU A AND B ANTIGEN.... 04/02/16 17:50 Urine Culture - Preliminary Resulted Urine Catheterized Urine Gram Negative Dayo 04/02/16 16:05 Aerobic Blood Culture - Preliminary Resulted Blood Peripheral NO GROWTH IN 1 DAY 04/02/16 16:05 Anaerobic Blood Culture - Preliminary Resulted Blood Peripheral NO GROWTH IN 1 DAY Result Diagram: 04/03/16 0625 04/03/16 0625 Imaging RADIOLOGY STUDIES/FILMS REVIEWED Chest X-Ray 04/02/16 3844 Signed Impressions: Service Date/Time: Saturday, April 02, 2016 16:27 - CONCLUSION: 1. No acute cardiopulmonary process. 2. 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 Manuel López MD Abdomen/Pelvis CT 04/02/16 0931 Signed Impressions: Service Date/Time: Saturday, April 02, 2016 18:41 - CONCLUSION: 1. Nonobstructing renal stones being much more numerous and larger on the left side. The central calcifications in the left kidney resemble a staghorn calculus. 2. Mild dilatation of the right collecting system and right ureter. This suggests there may have been a passed stone. A stone in the right ureter is not seen. 3. Destructive changes at the femoral heads bilaterally. These changes appear chronic. These changes could be secondary to underlying process such as prior avascular necrosis, prior trauma or prior inflammatory change including infection or inflammatory arthritis. Marquis Galo MD Assessment and Plan Assessment and Plan IMPRESSION Sepsis due to source, UC with GNR Complicated UTI, has bilateral stones in GUT, prob passed stones in R side Nausea and vomiting due to UTI, has elevated lipase as well, ?pancreatitis Renal insufficiency likely due to poor po intake and sepsis, improving HIV, previous CD4 count last Oct >500 Failure to thrive RECOMMENDATION Resume HAART Rx Urology has been consulted Fluid hydration Change Rocephin to Cefepime until C/S available Follow C/S Monitor progress Check CD4 counts I will follow along with you Thank you for this consultation Laverne Nunes MD Apr 03, 2016 13:43
[2016-04-03 13:44] LABS: POTASSIUM 2.1 MEQ/L (3.5-5.1)
[2016-04-03] MEDS: CEFEPIME INJ 2,000 MG in SODIUM CHLORIDE 0.9% INJ 100 ML IV SCH (16:23)
[2016-04-03 17:38] LABS: BLOOD, URINE SMALL (NEG); GLUCOSE,URINE NEG (NEG); KETONE, URINE 10 mg/dL (NEG); MUCUS URINE FEW /lpf (OCC); NITRITE,URINE NEG (NEG); SQUAMOUS EPITHELIAL CELL URINE <1 /hpf (0-5); URINE COLOR LIGHT-YELLOW (YELLW/STRAW)
[2016-04-03 17:39] LABS: COMMENT (UR) CATH
[2016-04-03] MEDS: ATORVASTATIN 20 MG TAB PO SCH (20:50)
[2016-04-03] MEDS: GABAPENTIN 300 MG CAP PO SCH (20:50)
[2016-04-03] MEDS: LATANOPROST 0.005% OPHT SOLN 2.5 ML BTL EACH EYE SCH (20:50)
[2016-04-04] VITALS (8 sets, daily range): BP systolic 86–93; BP diastolic 54–65; PULSE 97–109; RESP 17–21; TEMP 96.8–99.3; O2SAT 93–100
[2016-04-04] MEDS: SODIUM CHLOR 0.9% 1000 ML INJ 1,000 ML IV SCH ×2 (01:53→14:58)
[2016-04-04] MEDS: SODIUM BICARBONATE IV SCH ×3 (02:20→19:39)
[2016-04-04] MEDS: CEFEPIME INJ 2,000 MG in SODIUM CHLORIDE 0.9% INJ 100 ML IV SCH ×2 (02:20→16:09)
[2016-04-04] MEDS: [UNRECOGNIZED DRUG - OTHER] IV SCH ×3 (02:20→19:39)
[2016-04-04] MEDS: POTASSIUM CHLORIDE IV SCH ×3 (02:20→19:39)
[2016-04-04] MEDS: LEVOTHYROXINE SODIUM 50 MCG TAB PO SCH (04:52)
[2016-04-04 07:24] LABS: BICARBONATE 10.6 MEQ/L (21.0-32.0)
[2016-04-04 07:32] LABS: POTASSIUM 2.6 MEQ/L (3.5-5.1)
[2016-04-04 07:33] LABS: HEMATOCRIT 27.8 % (35.0-46.0); MEAN CELL VOLUME 90.5 FL (80.0-100.0); MEAN CORPUSCULAR HEMOGLOBIN 29.7 PG (27.0-34.0); MEAN CORPUSCULAR HGB CONC 32.8 % (32.0-36.0); PLATELET COUNT 200 TH/MM3 (150-450); RED BLOOD COUNT 3.07 MIL/MM3 (4.00-5.30); RED CELL DISTRIBUTION WIDTH 15.4 % (11.6-17.2); REVIEW FLAG FINAL; WHITE BLOOD COUNT 17.1 TH/MM3 (4.0-11.0)
[2016-04-04] MEDS: SODIUM CHLORIDE 0.9% FLUSH 5 ML FLUSH FLUSH SCH ×2 (09:00→21:00)
[2016-04-04] MEDS ORDERED: POTASSIUM CHLORIDE 20 MEQ CONTROLLED RELEASE TAB PO SCH (09:00)
[2016-04-04] MEDS: CYANOCOBALAMIN 1,000 MCG TAB PO SCH ×2 (09:00→21:00)
[2016-04-04] MEDS ORDERED: SODIUM CHLOR 0.9% 250 ML INJ 250 ML IV SCH (09:00)
[2016-04-04] MEDS: POLYETHYLENE GLYCOL 17 GM PKG PO SCH (09:00)
[2016-04-04] MEDS ORDERED: POTASSIUM CHLORIDE 20 MEQ CONTROLLED RELEASE TAB PO ONE (09:00)
[2016-04-04] MEDS: POTASSIUM CHLOR 20 MEQ PREMIX 100 ML IV SCH ×2 (09:10→13:13)
[2016-04-04] MEDS: EMTRICITABINE/TENOFOVIR 200 MG/300 MG TAB PO SCH (09:15)
[2016-04-04] MEDS: DOLUTEGRAVIR SODIUM 50 MG TAB PO SCH (09:15)
[2016-04-04] MEDS: DARUNAVIR 800 MG TAB PO SCH (09:15)
--- NOTE | 2016-04-04 09:50 | HHI.PR ---
Subjective Remarks Patient has some more energy Had one somewhat loose stool this morning No abdominal pain No chest pain No shortness of breath next line no cough Okay appetite Review of system for 12 point system otherwise unremarkable Objective Objective Results - Vital Signs Date Time Temp Pulse Resp B/P Pulse Ox O2 Delivery O2 Flow Rate FiO2 04/04/16 07:21 99.3 103 20 86/55 98 04/04/16 04:05 96.9 97 18 92/57 93 04/04/16 00:22 96.8 100 18 93/54 94 04/03/16 21:32 96 04/03/16 19:44 96.8 99 18 96/62 100 04/03/16 15:50 97.6 103 20 82/61 100 04/03/16 11:38 86 04/03/16 11:15 97.6 93 20 82/51 100 Result Diagram: 04/04/16 0635 04/04/16 0635 Other Results Laboratory Tests Test 04/03/16 04/03/16 04/04/16 12:30 17:30 06:35 Sodium Level 140 143 Potassium Level 2.1 2.6 Chloride Level 113 118 Carbon Dioxide Level 9.5 10.6 Anion Gap 18 14 Blood Urea Nitrogen 10 8 Creatinine 1.10 0.92 Estimat Glomerular Filtration 60 74 Rate Random Glucose 95 65 Calcium Level 8.6 7.9 Magnesium Level 2.1 2.0 Urine Color LIGHT-YELLOW Urine Turbidity CLEAR Urine pH 6.0 Urine Specific [place] 1.004 Urine Protein TRACE Urine Glucose (UA) NEG Urine Ketones 10 Urine Occult Blood SMALL Urine Nitrite NEG Urine Bilirubin NEG Urine Urobilinogen LESS THAN 2.0 Urine Leukocyte Esterase LARGE Urine RBC 4 Urine WBC 10 Urine Squamous Epithelial <1 Cells Urine Mucus FEW Microscopic Urinalysis Comment CATH White Blood Count 17.1 Red Blood Count 3.07 Hemoglobin 9.1 Hematocrit 27.8 Mean Corpuscular Volume 90.5 Mean Corpuscular Hemoglobin 29.7 Mean Corpuscular Hemoglobin 32.8 Concent Red Cell Distribution Width 15.4 Platelet Count 200 Mean Platelet Volume 8.7 Hematology Comments Phosphorus Level 0.6 Lipase 139 Date/Time Procedure Status Source Growth 04/02/16 17:55 Influenza Types A,B Antigen ([facility]) - Final Complete Nasal Washing NEGATIVE FOR FLU A AND B ANTIGEN.... 04/02/16 17:50 Urine Culture - Preliminary Resulted Urine Catheterized Urine Gram Negative Dayo 04/02/16 16:05 Aerobic Blood Culture - Preliminary Resulted Blood Peripheral NO GROWTH IN 1 DAY 04/02/16 16:05 Anaerobic Blood Culture - Preliminary Resulted Blood Peripheral NO GROWTH IN 1 DAY Physical Exam Physical Exam GENERAL: The patient is alert and oriented, thin built, ill-looking, cachectic look, lying on bed, very ill-looking, without any apparent cardiorespiratory discomfort. VITAL SIGNS: Reviewed HEENT: Head is atraumatic, normocephalic. Eyes - Sunken eyes. No conjunctival injection, no scleral icterus. Mouth unremarkable. No thrush noted. NECK: Supple. Negative increase in JVD. Central trachea. There are occasional few nodes, nontender, in the posterior neck region bilaterally in the posterior triangle in the bilateral neck region. CHEST: Clear to auscultation. CV: S1 and S2 audible. Unable to hear any S3 gallop. GI: Abdomen is soft, very minimally tender in the left upper quadrant and periumbilical region. No rebound, no guarding. No organomegaly. Positive bowel sounds. MUSCULOSKELETAL: Extremities with no cyanosis or pedal edema appreciated. There is decreased muscle mass. 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 Normal facial features, moving her extremities. SKIN: Warm and dry. PSYCH: Appropriate mood and affect. A/P Assessment and Plan 1. Abdominal pain, nausea, vomiting. 2. UTI. 3. Renal calculus. 4. Metabolic acidosis. 5. Severe hypokalemia. 6. Mild renal insufficiency. 7. Increased lipase. 8. Leukocytosis secondary to above. 9. History of HIV. 10. Cachexia. 11. Malnutrition. 12. Anemia posthydration. 13. History of hyperlipidemia. 14. Hypertension history. 15. Hypothyroidism. 16. GERD. 17. History of genital herpes. PLAN Labs reviewed Still metabolic acidosis, continue IV fluids with bicarbonate Low potassium plan for replacement and will monitor Within normal limits magnesium level Very low phosphorus will replace and monitor Increase WBC count will monitor Anemia post hydration we'll monitor Renal insufficiency improved Increased lipase level within normal limits now Urosepsis/sepsis on admission Appreciate ID consult Continue antibiotics. Awaiting urology consult. Discussed with the patient in detail. Discussed with RN. Encourage by mouth intake Further recommendation to follow as per the patient progress Meds reviewed CONDITION Guarded. Shayy Pelayo MD Apr 04, 2016 09:50
[2016-04-04] MEDS ORDERED: SODIUM PHOSPHATE INJ 30 MMOL in SODIUM CHLOR 0.9% 250 ML INJ 250 ML IV ONE (10:00)
[2016-04-04] MEDS ORDERED: POTASSIUM CL 40 MEQ/30 ML LIQ UDC PO ONE (10:30)
[2016-04-04] MEDS: SERTRALINE HCL 50 MG TAB PO SCH (11:56)
[2016-04-04] MEDS: CALCIUM CARBONATE 500 MG CHEWABLE TAB CHEW SCH ×2 (11:57→21:00)
[2016-04-04] MEDS: DOCUSATE SODIUM 100 MG CAP PO SCH ×3 (11:57→18:00)
[2016-04-04] MEDS: PANTOPRAZOLE SOD 20 MG DELAYED RELEASE TAB PO SCH (11:57)
[2016-04-04] MEDS: CALCIUM/VITAMIN D 250 MG/125 U TAB PO SCH ×2 (11:58→21:00)
[2016-04-04] MEDS: DOCUSATE SODIUM 50 MG/SENNA 8.6 MG TAB PO SCH ×3 (11:59→18:00)
[2016-04-04] MEDS: ACETAMINOPHEN/HYDROcodone 325 MG/5 MG TAB PO SCH ×3 (11:59→19:06)
[2016-04-04] MEDS: ASCORBIC ACID 500 MG TAB PO SCH ×2 (12:00→12:14)
[2016-04-04] MEDS: POTASSIUM CL 40 MEQ/30 ML LIQ UDC PO SCH (12:13)
[2016-04-04] MEDS: FERROUS SULFATE 325 MG (65 MG ELEMENTAL IRON) TAB PO SCH ×3 (12:15→19:06)
[2016-04-04] MEDS: GABAPENTIN 300 MG CAP PO SCH ×2 (12:16→21:00)
[2016-04-04] MEDS: FENOFIBRATE 145 MG TAB PO SCH (12:17)
--- NOTE | 2016-04-04 12:24 | HHI.IDPN ---
Subjective Subjective Remarks Notes reviewed No fever More awake compared to yesterday UC with E coli CD4 pending CO2 still low, on bicarb Antibiotics Cefepime Lines PIV Past Medical History HIV, last CD4 count in November 22 Hypercholesterolemia Hypothyroidism Hypertension Genital herpes GERD Past Surgical History Cyst removed from the right side of the abdomen in 1993 Allergies: Coded Allergies: Do (Verified Allergy, Severe, 04/02/16) Objective . Vital Signs Date Time Temp Pulse Resp B/P Pulse Ox O2 Delivery O2 Flow Rate FiO2 04/04/16 07:21 99.3 103 20 86/55 98 04/04/16 04:05 96.9 97 18 92/57 93 04/04/16 00:22 96.8 100 18 93/54 94 04/03/16 21:32 96 04/03/16 19:44 96.8 99 18 96/62 100 04/03/16 15:50 97.6 103 20 82/61 100 . Laboratory Tests Test 04/02/16 04/03/16 04/04/16 16:00 06:25 06:35 White Blood Count 14.3 TH/MM3 15.7 TH/MM3 17.1 TH/MM3 Red Blood Count 3.88 MIL/MM3 3.42 MIL/MM3 3.07 MIL/MM3 Hemoglobin 11.7 GM/DL 10.3 GM/DL 9.1 GM/DL Hematocrit 36.0 % 31.6 % 27.8 % Mean Corpuscular Volume 92.7 FL 92.3 FL 90.5 FL Mean Corpuscular Hemoglobin 30.1 PG 30.2 PG 29.7 PG Mean Corpuscular Hemoglobin 32.5 % 32.7 % 32.8 % Concent Red Cell Distribution Width 16.0 % 16.0 % 15.4 % Platelet Count 614 TH/MM3 483 TH/MM3 200 TH/MM3 Mean Platelet Volume 8.4 FL 8.1 FL 8.7 FL Neutrophils (%) (Auto) 82.1 % 86.3 % Lymphocytes (%) (Auto) 14.5 % 9.4 % Monocytes (%) (Auto) 2.9 % 3.9 % Eosinophils (%) (Auto) 0.3 % 0.2 % Basophils (%) (Auto) 0.2 % 0.2 % Neutrophils # (Auto) 11.7 TH/MM3 13.6 TH/MM3 Lymphocytes # (Auto) 2.1 TH/MM3 1.5 TH/MM3 Monocytes # (Auto) 0.4 TH/MM3 0.6 TH/MM3 Eosinophils # (Auto) 0.0 TH/MM3 0.0 TH/MM3 Basophils # (Auto) 0.0 TH/MM3 0.0 TH/MM3 CBC Comment DIFF FINAL AUTO DIFF Differential Comment AUTO DIFF CONFIRMED Hematology Comments Laboratory Tests Test 04/02/16 04/03/16 04/03/16 04/04/16 16:00 06:25 12:30 06:35 Sodium Level 132 MEQ/L 141 MEQ/L 140 MEQ/L 143 MEQ/L Potassium Level 3.1 MEQ/L 1.7 MEQ/L 2.1 MEQ/L 2.6 MEQ/L Chloride Level 104 MEQ/L 115 MEQ/L 113 MEQ/L 118 MEQ/L Carbon Dioxide Level 10.2 MEQ/L 9.9 MEQ/L 9.5 MEQ/L 10.6 MEQ/L Anion Gap 18 MEQ/L 16 MEQ/L 18 MEQ/L 14 MEQ/L Blood Urea Nitrogen 12 MG/DL 11 MG/DL 10 MG/DL 8 MG/DL Creatinine 1.45 MG/DL 1.14 MG/DL 1.10 MG/DL 0.92 MG/DL Estimat Glomerular Filtration 44 ML/MIN 58 ML/MIN 60 ML/MIN 74 ML/MIN Rate Random Glucose 85 MG/DL 72 MG/DL 95 MG/DL 65 MG/DL Lactic Acid Level 1.9 mmol/L Calcium Level 9.3 MG/DL 8.5 MG/DL 8.6 MG/DL 7.9 MG/DL Magnesium Level 2.4 MG/DL 2.1 MG/DL 2.0 MG/DL Total Bilirubin 0.5 MG/DL Aspartate Amino Transf 31 U/L (AST/SGOT) Alanine Aminotransferase 12 U/L (ALT/SGPT) Alkaline Phosphatase 93 U/L Total Creatine Kinase 71 U/L Troponin I 0.04 NG/ML Total Protein 7.2 GM/DL Albumin 2.6 GM/DL Lipase 476 U/L 448 U/L 139 U/L Phosphorus Level 0.6 MG/DL Microbiology Date/Time Procedure Status Source Growth 04/02/16 16:00 Aerobic Blood Culture - Preliminary Resulted Blood Peripheral NO GROWTH IN 2 DAYS 04/02/16 16:00 Anaerobic Blood Culture - Preliminary Resulted Blood Peripheral NO GROWTH IN 2 DAYS 04/02/16 16:05 Aerobic Blood Culture - Preliminary Resulted Blood Peripheral NO GROWTH IN 2 DAYS 04/02/16 16:05 Anaerobic Blood Culture - Preliminary Resulted Blood Peripheral NO GROWTH IN 2 DAYS 04/02/16 17:50 Urine Culture - Final Complete Urine Catheterized Urine Escherichia Coli 04/02/16 17:55 Influenza Types A,B Antigen ([facility]) - Final Complete Nasal Washing NEGATIVE FOR FLU A AND B ANTIGEN.... Imaging Chest X-Ray 04/02/16 1554 Signed Impressions: Service Date/Time: Saturday, April 02, 2016 16:27 - CONCLUSION: 1. No acute cardiopulmonary process. 2. 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 Manuel López MD Abdomen/Pelvis CT 04/02/16 1550 Signed Impressions: Service Date/Time: Saturday, April 02, 2016 18:41 - CONCLUSION: 1. Nonobstructing renal stones being much more numerous and larger on the left side. The central calcifications in the left kidney resemble a staghorn calculus. 2. Mild dilatation of the right collecting system and right ureter. This suggests there may have been a passed stone. A stone in the right ureter is not seen. 3. Destructive changes at the femoral heads bilaterally. These changes appear chronic. These changes could be secondary to underlying process such as prior avascular necrosis, prior trauma or prior inflammatory change including infection or inflammatory arthritis. Marquis Galo MD Physical Exam GENERAL: More awake, NAD SKIN: Cool and dry. Decreased turgor. No generalized rash or ecchymosis. HEENT: Has some temporal wasting. Brodnax conjunctivae, sunken eyeballs. No scleral icterus. No injection or drainage. ENT: Nose without bleeding, or purulent drainage. Moist oral mucosa. Throat without erythema, or exudate. Uvula midline. Airway patent. No oral thrush. NECK: Trachea midline. Has some mild cervical lymphadenopathy. Supple, nontender, no meningeal signs. CARDIOVASCULAR: Regular rate and rhythm without murmurs, gallops, or rubs. RESPIRATORY: Clear to auscultation. Breath sounds equal bilaterally. No wheezes , rales, or rhonchi. GASTROINTESTINAL: Abdomen soft, nondistended, bowel sounds are present and normoactive, min tenderness, no guarding or rebound. N MUSCULOSKELETAL: Extremities without clubbing, cyanosis, or edema. No joint tenderness, effusion, or edema noted. No calf tenderness. Negative Homans sign bilaterally. Both feet are cool to touch. NEUROLOGICAL: Awake and alert. Cranial nerves II through XII intact. Motor grossly within normal limits. Normal speech. No Babinski or ankle clonus. PSYCH: Calm and cooperative LINE: PIV with no evidence if infection Laboratory Assessment & Plan Remarks IMPRESSION Sepsis due to source, UC with GNR Complicated UTI, has bilateral stones in GUT, prob passed stones in R side Nausea and vomiting due to UTI, has elevated lipase as well, ?pancreatitis Renal insufficiency likely due to poor po intake and sepsis, improving HIV, previous CD4 count last Oct >500 Failure to thrive RECOMMENDATION Resume HAART Rx Urology has been consulted Fluid hydration Change back to Rocephin Follow C/S Monitor progress Check CD4 counts D/W Dr Pierce Nunes,Laverne Alvarez MD Apr 04, 2016 12:24
[2016-04-04] MEDS: MULTIVITAMINS/MINERALS THERAPEUTIC TAB PO SCH (13:18)
[2016-04-04] MEDS: FAMOTIDINE 20 MG TAB PO SCH ×2 (13:19→21:00)
[2016-04-04] MEDS: MEGESTROL ACETATE SUSP 400 MG/10 ML CUP PO SCH (13:24)
[2016-04-04] MEDS: HEPARIN SODIUM - SQ 10,000 UNITS/ML VIAL SQ SCH ×2 (15:10→22:10)
[2016-04-04] MEDS ORDERED: ALUMINUM/MAGNESIUM/SIMETH 30 ML CUP PO PRN (15:30)
--- NOTE | 2016-04-04 20:04 | MB ---
cc: LAKISHA HSIEH MD DATE OF CONSULTATION 04/04/2016 REASON FOR CONSULTATION Left nonobstructing renal calculi. HISTORY OF THE PRESENT ILLNESS This patient is a very pleasant 65-year-old Afro-[place] female with a history of HIV as well as kidney stones who came the ER from a nursing facility complaining of decreased oral intake and abdominal pain, nausea and she was unable to keep her medication down. She is a poor historian. All records are from other doctors in her hospital visit. She stated when she initially came she did not have an appetite and was having nausea and vomiting least two times in the past 24 hours. She was having abdominal pain both on the right and left side for the past 5 weeks. It has been on and off but would start very mild initially and became moderate to severe which led her to the hospital. Once in the ER she had a CT abdomen and pelvis with and without contrast which showed multiple large stones in her left kidney and also a mild dilated right ureter with no evidence of any obstructing stone, possibly from passing a stone on her right kidney. In discussion with the patient she has been treated for kidney stones in the past by Dr. Arambula and group which required lithotripsy. She thinks this was done on her left side. She denies any dysuria, hematuria at this time or any recent urinary tract infections. Her abdominal pain is much better, rates it as 2/10 compared to a 10/10 when she was admitted. The pain currently right now is in more left-sided than her left groin area. PAST MEDICAL HISTORY Significant for: 1. HIV. 2. Kidney stones. 3. Hyperlipidemia. 4. Hypertension. 5. Hypothyroidism. 6. Gastroesophageal reflux disease. 7. Genital herpes. PAST SURGICAL HISTORY 1. She had a cyst removed on her side abdomen in 1993. 2. Also a history of shock wave lithotripsy. ALLERGIES SHE IS ALLERGIC TO BERRIES. FAMILY HISTORY Negative for urolithiasis. Negative for genitourinary malignancies. SOCIAL HISTORY She does not drink. She quit smoking years ago. She has a history of IV drug abuse. She lives in a nursing facility. MEDICATIONS Home medications include: 1. Zoloft 25 milligrams p.o. daily. 2. Chlorpromazine 10 milligrams p.o. three times a day as needed for nausea and vomiting. 3. Megace 400 milligrams p.o. daily. 4. Prezcobix one tablet p.o. daily. 5. Tivicay 50 milligrams p.o. daily. 6. Descovy one tablet p.o. daily. 7. Fosamax 70 milligrams p.o. weekly. 8. Milk of Magnesia. 9. MiraLax. 10. Atorvastatin 20 milligrams p.o. daily. 11. Lasix 40 milligrams p.o. daily. 12. Omeprazole 20 milligrams p.o. daily. 13. Synthroid 50 ___ p.o. daily. PHYSICAL EXAMINATION VITAL SIGNS: Her temperature is 97.6, pulse 109, respiratory rate 20, blood pressure 191/65, saturation 98% on room air. GENERAL: She is alert and awake. She is slightly confused but pleasant and cooperative woman who appears her stated age. HEENT: Head is normocephalic, atraumatic. NECK: Supple. Trachea is midline. No JVD. EYES: No scleral icterus. Extraocular muscles intact. SKIN: No ulcers or rashes. CARDIOVASCULAR: She is slightly tachycardia but regular rhythm. No gallops or murmurs. LUNGS: Clear to auscultation bilaterally. No wheezes or rales or rhonchi. ABDOMEN: Soft. Nontender, nondistended. Positive bowel sounds. GENITOURINARY: No CVA tenderness bilaterally. PELVIC: Exam not indicated at this time. EXTREMITIES: Full range of motion x4. No clubbing, cyanosis or edema. Nontender. PSYCHIATRIC: Flat affect. NEUROLOGICAL: Cranial nerves II-XII intact. LABORATORY DATA Labs show white count 17.1, hemoglobin 9.1, hematocrit 27.8 and platelet count 200. Sodium 143, potassium 2.6, chloride 118, bicarb 10.6, BUN 8, creatinine 0.92, glucose 65. Urine showed positive nitrate, large leukocyte esterase. Urine culture currently pending. IMAGING STUDIES CT of abdomen and pelvis with and without contrast was performed. She has multiple large left renal calculi. They are non-obstructing as well as mild right hydroureter nephrosis with no evidence of any obstructing stone. ASSESSMENT AND PLAN The patient is a 55-year-old female with a history of kidney stones who is admitted with abdominal pain, nausea and decreased p.o. intake, and was found to have multiple large left nonobstructing stones as well as right hydroureter nephrosis and urinary tract infection. The plan, recommend conservative management at this time as her pain continues to improve. She does have a significant mild stone burden on her left kidney that will quickly need treatment but should be done on an outpatient basis. Various options are available for her including shock wave lithotripsy, ureteroscopy lithotripsy, and possibly the best option to get her stone free in one procedure and that is a percutaneous nephrolithotomy. Recommend continuing antibiotics for her urinary tract infection. Switch them to culture specific once her urine culture returns. We will repeat renal ultrasound to look for resolution of her hydronephrosis of her right kidney. Thank you for this consult. MD MONICA Jaramillo/JERI /5:28 PM /7:36 PM
[2016-04-04] MEDS: ATORVASTATIN 20 MG TAB PO SCH (21:00)
[2016-04-04] MEDS: LATANOPROST 0.005% OPHT SOLN 2.5 ML BTL EACH EYE SCH (21:00)
[2016-04-05] VITALS (8 sets, daily range): BP systolic 88–104; BP diastolic 50–65; PULSE 80–110; RESP 16–21; TEMP 97.3–98.7; O2SAT 96–100
[2016-04-05] MEDS: CEFEPIME INJ 2,000 MG in SODIUM CHLORIDE 0.9% INJ 100 ML IV SCH (02:50)
[2016-04-05] MEDS: LEVOTHYROXINE SODIUM 50 MCG TAB PO SCH (06:03)
--- NOTE | 2016-04-05 06:24 | RADRPT ---
EXAM DATE/TIME: 04/05/2016 05:54 [facility] COMPARISON: CT ABDOMEN & PELVIS W CONTRAST, April 02, 2016, 18:41. INDICATIONS : Abdomen pain. MEDICAL HISTORY : Renal calculi. SURGICAL HISTORY : None. ENCOUNTER: Initial ACUITY: 3 days PAIN SCORE: Non-responsive. LOCATION: Bilateral upper quadrant FINDINGS: Examination of the abdomen demonstrates gaseous distention of the small bowel with air fluid levels m ost consistent with ileus .There are no findings of small bowel obstruction. No free air is identifie d. No organomegaly is evident. Multiple left renal stones are present the largest measuring 10 mm The re is severe arthritis in the right hip with old fracture of the left femoral neck and proximal migra tion. CONCLUSION: 1. Findings of small bowel ileus. Followup examination is recommended if clinically indicated. 2. Multiple left renal stones Devyn Rios MD on April 05, 2016 at 6:20 Board Certified Radiologist. This report was verified electronically.
[2016-04-05] MEDS: SODIUM CHLOR 0.9% 1000 ML INJ 1,000 ML IV SCH (08:18)
[2016-04-05] MEDS: DOLUTEGRAVIR SODIUM 50 MG TAB PO SCH (08:49)
[2016-04-05] MEDS: POTASSIUM CL 40 MEQ/30 ML LIQ UDC PO SCH (08:49)
[2016-04-05] MEDS: CALCIUM CARBONATE 500 MG CHEWABLE TAB CHEW SCH ×2 (08:49→20:41)
[2016-04-05] MEDS: DARUNAVIR 800 MG TAB PO SCH (08:49)
[2016-04-05] MEDS: ACETAMINOPHEN/HYDROcodone 325 MG/5 MG TAB PO SCH ×3 (08:49→18:50)
[2016-04-05] MEDS: GABAPENTIN 300 MG CAP PO SCH ×2 (08:49→20:41)
[2016-04-05] MEDS: FENOFIBRATE 145 MG TAB PO SCH (08:49)
[2016-04-05] MEDS: CALCIUM/VITAMIN D 250 MG/125 U TAB PO SCH ×2 (08:50→20:42)
[2016-04-05] MEDS: CYANOCOBALAMIN 1,000 MCG TAB PO SCH ×2 (08:50→20:45)
[2016-04-05] MEDS: MEGESTROL ACETATE SUSP 400 MG/10 ML CUP PO SCH (08:50)
[2016-04-05] MEDS: FERROUS SULFATE 325 MG (65 MG ELEMENTAL IRON) TAB PO SCH ×3 (08:50→18:50)
[2016-04-05] MEDS: FAMOTIDINE 20 MG TAB PO SCH ×2 (08:50→20:41)
[2016-04-05] MEDS: HEPARIN SODIUM - SQ 10,000 UNITS/ML VIAL SQ SCH ×2 (08:51→20:39)
[2016-04-05] MEDS: SERTRALINE HCL 50 MG TAB PO SCH (08:51)
[2016-04-05] MEDS: EMTRICITABINE/TENOFOVIR 200 MG/300 MG TAB PO SCH (08:52)
[2016-04-05] MEDS: MULTIVITAMINS/MINERALS THERAPEUTIC TAB PO SCH (08:52)
[2016-04-05] MEDS: DOCUSATE SODIUM 50 MG/SENNA 8.6 MG TAB PO SCH ×3 (08:53→18:00)
[2016-04-05] MEDS: SODIUM CHLORIDE 0.9% FLUSH 5 ML FLUSH FLUSH SCH ×2 (09:00→20:40)
[2016-04-05] MEDS: POLYETHYLENE GLYCOL 17 GM PKG PO SCH (09:00)
--- NOTE | 2016-04-05 09:01 | HHI.PR ---
Subjective Remarks I'm thirsty I have pain in my abdomen, right upper quadrant No chest pain Shortness of breath generalized pain lower legs Alert (Kinza Nieto) Objective Objective Results - Vital Signs Date Time Temp Pulse Resp B/P Pulse Ox O2 Delivery O2 Flow Rate FiO2 04/05/16 08:27 98.7 97 16 88/50 100 04/05/16 04:07 98.7 110 18 97/58 98 04/05/16 00:01 98.7 107 16 104/51 96 04/04/16 20:27 97.8 106 21 92/58 97 04/04/16 20:03 99 04/04/16 15:30 97.7 101 17 92/59 100 04/04/16 12:59 20 04/04/16 12:43 97.6 109 20 91/65 94 I/O 04/04/16 04/04/16 04/04/16 04/05/16 04/05/16 04/05/16 07:00 15:00 23:00 07:00 15:00 23:00 Intake Total 2600 ml 480 ml Balance 2600 ml 480 ml Intake Oral 400 ml 480 ml IV Total 2200 ml # Voids 5 2 # Bowel Movements 3 (Kinza Nieto) Result Diagram: 04/04/16 0635 04/04/16 0635 Other Results Last Impressions Abdomen X-Ray 04/05/16 0600 Signed Impressions: Service Date/Time: March 05:54 - CONCLUSION: 1. Findings of small bowel ileus. Followup examination is recommended if clinically indicated. 2. Multiple left renal stones Devyn Rios MD Chest X-Ray 04/02/16 0993 Signed Impressions: Service Date/Time: Saturday, April 02, 2016 16:27 - CONCLUSION: 1. No acute cardiopulmonary process. 2. 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 Manuel López MD Abdomen/Pelvis CT 04/02/16 4950 Signed Impressions: Service Date/Time: Saturday, April 02, 2016 18:41 - CONCLUSION: 1. Nonobstructing renal stones being much more numerous and larger on the left side. The central calcifications in the left kidney resemble a staghorn calculus. 2. Mild dilatation of the right collecting system and right ureter. This suggests there may have been a passed stone. A stone in the right ureter is not seen. 3. Destructive changes at the femoral heads bilaterally. These changes appear chronic. These changes could be secondary to underlying process such as prior avascular necrosis, prior trauma or prior inflammatory change including infection or inflammatory arthritis. Marquis Galo MD Medications and IVs Active Medications Al Hydrox/Mg Hydrox/Simethicone (Mag-Al Plus Susp Liq) 30 ml Q6H PRN PO; Start 04/04/16 at 15:30 Alendronate Sodium (Fosamax) 70 mg Q7D PO; Start 04/09/16 at 07:00 Darunavir 800 mg 800 mg DAILY PO; Start 04/04/16 at 09:15 Emtricitabine/ Tenofovir (Truvada 200-300 Mg) 1 tab DAILY PO; Start 04/04/16 at 09:15 Potassium Chloride 40 meq 40 meq DAILY PO; Start 04/04/16 at 09:00; Stop at 10:19; Status DC Potassium Chloride 40 meq 40 meq NOW ONCE PO; Start 04/04/16 at 09:00; Stop at 09:01; Status DC Potassium Chloride (KCl 20 Meq Premix Inj) 100 ml @ 50 mls/hr Q2H IV Last administered on 04/04/16 13:13; Admin Dose 50 MLS/HR; Start 04/04/16 at 09:00; Stop 04/04/16 at 12:59; Status DC Potassium Chloride (KCl 40 Meq/30 ml Liq) 40 meq DAILY PO Last administered on 12:13; Admin Dose 40 MEQ; Start 04/04/16 at 11:00 Potassium Chloride (KCl 40 Meq/30 ml Liq) 40 meq NOW ONCE PO Last administered on 04/04/16 12:13; Admin Dose 40 MEQ; Start 04/04/16 at 10:30; Stop 04/04/16 at 10:31; Status DC Sodium Chloride (NS 250 ml Inj) 250 ml @ 0 mls/hr BOLUS IV Last administered on 04/04/16 09:09; Admin Dose 0 MLS/HR; Start 04/04/16 at 09:00 Sodium Phosphate/ Sodium Chloride (Sodium Phosphate Inj/NS 250 ml Inj) 260 ml @ 43.333 mls/ hr ONCE ONCE IV Last administered on 04/04/16t 14:58; Admin Dose 43.333 MLS/HR; Start 04/04/16 at 10:00; Stop 04/04/16 at 15:59; Status DC ( Kinza Nieto) ROS General: Fatigue, Weakness, Other (10 point review done of ROS. Positives noted fatigue, weakness generalized, abdominal pain, pleasant confusion,. Other systems negative or unremarkable) GI: Abdominal Pain /INFECTION CONTROL PRACTITIONER: Other (incontinence of urine and bowel) Neuro/MS: Other (pleasant confusion) (Kinza Nieto) Physical Exam Physical Exam PHYSICAL EXAMINATION GENERAL: This is a well-developed, well-nourished female who appears to be in mild distress. She is awake, randomly talking about pain in her lower legs HEAD: Normocephalic without any lesion or mass noted. Facial features appear symmetric. OROPHARYNGEAL: Oropharynx without erythema or edema. NECK: Supple. No nuchal rigidity or lymphadenopathy. Trachea midline without deviation. CARDIAC: Regular rhythm, regular rate, S1 and S2 are heard, distant. Murmur none audible; no gallops or rubs. LUNGS: Low volumes Clear to auscultation bilaterally. No wheeze, rhonchi or no rale, but decreased breath sounds in bases ABDOMEN: Soft, tenderness noted in right upper quadrant exam, no organomegaly or masses. Hypoactive Bowel sounds are heard . mild guarding. EXTREMITIES: No edema. Pulses equal bilateral. heals sore no skin breakdown. NEUROLOGICAL: Patient mood and affect mild restlessness. No focal deficit SKIN:Warm and moist, dry Objective Remarks By lower legs and heels hurt. My belly hurts too. I'm thirsty (Kinza Nieto) A/P Assessment and Plan 1. Abdominal pain, nausea, vomiting. 2. UTI., Complicated bilateral renal stones 3. Renal calculus. 4. Metabolic acidosis. 5. Severe hypokalemia. 6. Mild renal insufficiency. 7. Increased lipase. 8. Leukocytosis secondary to above. 9. History of HIV. 10. Cachexia. 11. Malnutrition. 12. Anemia posthydration. 13. History of hyperlipidemia. 14. Hypertension history. 15. Hypothyroidism. 16. GERD. 17. History of genital herpes. PLAN Labs reviewed, vital signs reviewed, afebrile, tachycardia heart rate 110, and respiratory status within normal limits. BP low normal Still metabolic acidosis, continue IV fluids with bicarbonate Low potassium plan for replacement and will monitor, still has low limits this a.m. low phosphorus will replace and monitor Increase WBC count will monitor, elevated this a.m. 17.1, sepsis probable to UTI. Anemia, monitor Renal insufficiency improved Increased lipase level within normal limits now Urosepsis/sepsis on admission Appreciate ID consult. Assisting with antibiotic therapy and monitoring Continue antibiotics. Rocephin to Cefepime until cultures back urology consult, conservative monitoring stones until patient improves Patient is positive for ileus, but does have hypoactive bowel sounds in all quads. Monitor Discussed With: Family (patient), Other (Dr. Pelayo, patient seen on his behalf) (Kinza Nieto) Assessment and Plan Patient seen and examined as above [id number] time spent with patient Meds reviewed Labs reviewed Discussed with RN Plan of care discussed with SHINGLE INSPECTOR Appreciate consultants input Discussed with patient Plan for BMP CBC in the morning Potassium replacement Continue bicarbonate drip (Shayy Pelayo MD) Kinza Nieto Apr 05, 2016 09:01 Shayy Pelayo MD Apr 05, 2016 13:39
--- NOTE | 2016-04-05 09:14 | RADRPT ---
EXAM DATE/TIME: 04/05/2016 07:52 [facility] COMPARISON: CT THORAX W/O CONTRAST, February 21, 2014, 12:19. CT ABDOMEN & PELVIS W CONTRAST, April 02, 2016, 18:41. US KIDNEY/RENAL/BLADDER, November 24, 2014, 20:09. INDICATIONS : Hydronephrosis. MEDICAL HISTORY : Hypercholesterolemia. Hypertension. Herpes. HIV. AIDS. Ectopic . GERD. Hypothyroidism. SURGICAL HISTORY : Right abdominal cyst removed. ENCOUNTER: Subsequent ACUITY: 2 days PAIN SCORE: 5/10 LOCATION: Bilateral flank MEASUREMENTS: RIGHT KIDNEY: 10.9 x 4.4 x 5.5 cm LEFT KIDNEY: 9.4 x 5.6 x 4.7 cm FINDINGS: RIGHT KIDNEY: Renal cortex shows some increased echogenicity. As seen previously, there are multiple renal cortical cysts the largest in the upper pole measuring approximately 1.5 cm in diameter. A punctate, echogeni c foci at the junction of the mid and upper pole cortex of the same kidney does not show posterior ac oustic shadowing and may represent a small foci of cortical fat. Regardless, this is stable. No hydr onephrosis, stone, or mass. LEFT KIDNEY: Renal cortex shows increased echogenicity. Multiple echogenic nonobstructing stones are seen in the c ollecting system, the largest measuring upwards of 1.6 cm in diameter. No hydronephrosis, stone, or mass. BLADDER: Within normal limits given the degree of distension. CONCLUSION: 1. Multiple nonobstructing calculi in the left renal collecting system, the largest measuring approxi mately 1.6 cm in diameter. 2. Benign-appearing renal cortical cysts in the right kidney. 3. Punctate echogenic foci in the cortex of the right kidney the junction of the upper and midpole is unchanged without shadowing and may represent a foci of renal cortical fat. 4. Increased echogenicity of the renal cortices symmetrically and bilaterally suggesting some degree of medical renal disease. 5. No significant change from prior. Manuel López MD on April 05, 2016 at 8:59 Board Certified Radiologist. This report was verified electronically.
--- NOTE | 2016-04-05 12:19 | HHI.IDPN ---
Subjective Subjective Remarks Notes reviewed No fever Mental status good Urology notes reviewed Repeat renal US no hydro C/S reviewed UC with E coli CD4 pending Antibiotics Cefepime Lines PIV Past Medical History HIV, last CD4 count in November 22 Hypercholesterolemia Hypothyroidism Hypertension Genital herpes GERD Past Surgical History Cyst removed from the right side of the abdomen in 1993 Allergies: Coded Allergies: Do (Verified Allergy, Severe, 04/02/16) Objective . Vital Signs Date Time Temp Pulse Resp B/P Pulse Ox O2 Delivery O2 Flow Rate FiO2 04/05/16 11:27 97.8 91 20 98/65 100 04/05/16 09:49 20 04/05/16 08:27 98.7 97 16 88/50 100 04/05/16 04:07 98.7 110 18 97/58 98 04/05/16 00:01 98.7 107 16 104/51 96 04/04/16 20:27 97.8 106 21 92/58 97 04/04/16 20:03 99 04/04/16 15:30 97.7 101 17 92/59 100 04/04/16 12:43 97.6 109 20 91/65 94 04/04/16 04/04/16 04/05/16 15:00 23:00 07:00 Intake Total 2600 ml 480 ml Balance 2600 ml 480 ml Intake Oral 400 ml 480 ml IV Total 2200 ml # Voids 5 2 # Bowel Movements 3 . Laboratory Tests Test 04/04/16 06:35 White Blood Count 17.1 TH/MM3 Red Blood Count 3.07 MIL/MM3 Hemoglobin 9.1 GM/DL Hematocrit 27.8 % Mean Corpuscular Volume 90.5 FL Mean Corpuscular Hemoglobin 29.7 PG Mean Corpuscular Hemoglobin 32.8 % Concent Red Cell Distribution Width 15.4 % Platelet Count 200 TH/MM3 Mean Platelet Volume 8.7 FL Hematology Comments Laboratory Tests Test 04/03/16 04/04/16 04/04/16 12:30 06:35 16:12 Sodium Level 140 MEQ/L 143 MEQ/L Potassium Level 2.1 MEQ/L 2.6 MEQ/L Chloride Level 113 MEQ/L 118 MEQ/L Carbon Dioxide Level 9.5 MEQ/L 10.6 MEQ/L Anion Gap 18 MEQ/L 14 MEQ/L Blood Urea Nitrogen 10 MG/DL 8 MG/DL Creatinine 1.10 MG/DL 0.92 MG/DL Estimat Glomerular Filtration 60 ML/MIN 74 ML/MIN Rate Random Glucose 95 MG/DL 65 MG/DL Calcium Level 8.6 MG/DL 7.9 MG/DL Magnesium Level 2.1 MG/DL 2.0 MG/DL Phosphorus Level 0.6 MG/DL 0.5 MG/DL Lipase 139 U/L Microbiology Date/Time Procedure Status Source Growth 04/02/16 16:00 Aerobic Blood Culture - Preliminary Resulted Blood Peripheral NO GROWTH IN 3 DAYS 04/02/16 16:00 Anaerobic Blood Culture - Preliminary Resulted Blood Peripheral NO GROWTH IN 3 DAYS 04/02/16 16:05 Aerobic Blood Culture - Preliminary Resulted Blood Peripheral NO GROWTH IN 3 DAYS 04/02/16 16:05 Anaerobic Blood Culture - Preliminary Resulted Blood Peripheral NO GROWTH IN 3 DAYS 04/02/16 17:50 Urine Culture - Final Complete Urine Catheterized Urine Escherichia Coli 04/02/16 17:55 Influenza Types A,B Antigen (CHACHA) - Final Complete Nasal Washing NEGATIVE FOR FLU A AND B ANTIGEN.... Imaging Chest X-Ray 04/02/164 Signed Impressions: Service Date/Time: Saturday, April 02, 2016 16:27 - CONCLUSION: 1. No acute cardiopulmonary process. 2. 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 Manuel López MD Abdomen/Pelvis CT 04/02/161553 Signed Impressions: Service Date/Time: Saturday, April 02, 2016 18:41 - CONCLUSION: 1. Nonobstructing renal stones being much more numerous and larger on the left side. The central calcifications in the left kidney resemble a staghorn calculus. 2. Mild dilatation of the right collecting system and right ureter. This suggests there may have been a passed stone. A stone in the right ureter is not seen. 3. Destructive changes at the femoral heads bilaterally. These changes appear chronic. These changes could be secondary to underlying process such as prior avascular necrosis, prior trauma or prior inflammatory change including infection or inflammatory arthritis. Marquis Galo MD Physical Exam GENERAL: Awake and alert, NAD SKIN: Cool and dry. Decreased turgor. No generalized rash or ecchymosis. HEENT: Has some temporal wasting. Reader conjunctivae, sunken eyeballs. No scleral icterus. No injection or drainage. ENT: Nose without bleeding, or purulent drainage. Moist oral mucosa. Throat without erythema, or exudate. Uvula midline. Airway patent. No oral thrush. NECK: Trachea midline. Has some mild cervical lymphadenopathy. Supple, nontender, no meningeal signs. CARDIOVASCULAR: Regular rate and rhythm without murmurs, gallops, or rubs. RESPIRATORY: Clear to auscultation. Breath sounds equal bilaterally. No wheezes , rales, or rhonchi. GASTROINTESTINAL: Abdomen soft, nondistended, bowel sounds are present and normoactive, min tenderness, no guarding or rebound. MUSCULOSKELETAL: Extremities without clubbing, cyanosis, or edema. No calf tenderness. NEUROLOGICAL: Non-focal PSYCH: Calm and cooperative LINE: PIV with no evidence if infection Laboratory Assessment & Plan Remarks IMPRESSION Sepsis due to source, UC with E coli - better Complicated UTI, has bilateral stones in GUT, prob passed stones in R side Nausea and vomiting due to UTI, has elevated lipase as well, ?pancreatitis - lipase down to normal Renal insufficiency likely due to poor po intake and sepsis, improving HIV, previous CD4 count last Oct >500 Failure to thrive RECOMMENDATION Continue HAART Rx Change Abx to oral and give 14 days Monitor progress Clinically stable from ID standpoint Laverne Nunes MD Apr 05, 2016 12:19
[2016-04-05 12:26] LABS: BICARBONATE 15.3 MEQ/L (21.0-32.0); POTASSIUM 3.4 MEQ/L (3.5-5.1)
[2016-04-05 12:49] LABS: CALCIUM-PROTEIN CORRECTED 8.4 MG/DL (8.5-10.1)
[2016-04-05] MEDS: CEFUROXIME AXETIL 500 MG TAB PO SCH ×2 (13:57→20:40)
[2016-04-05] MEDS: POTASSIUM CHLORIDE IV SCH (16:40)
[2016-04-05] MEDS: [UNRECOGNIZED DRUG - OTHER] IV SCH (16:40)
[2016-04-05] MEDS: SODIUM BICARBONATE IV SCH (16:40)
[2016-04-05] MEDS: POTASSIUM CHLOR 10 MEQ PREMIX 100 ML IV SCH ×3 (16:46→21:12)
--- NOTE | 2016-04-05 19:17 | PD.CONS ---
HPI Service Nephrology Consult Requested By Dr. Pelayo Reason for Consult Electrolyte imbalance, acidosis, hypokalemia, hypophosphatemia Primary Care Physician Esequiel Polanco M.D. History of Present Illness The patient is a 65 yo AA female who presented to the hospital on 04/02 with complaints of abdominal pain, anorexia, nausea, vomiting. 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 Urology has seen the patient and as her symptoms have been improving, they have chosen a conservative approach for the present with consideration of Lithotripsy as outpatient. Repeat renal US shows resolution of hydronephrosis. She initially had an acute renal decline with SCr at 1.45 that has improved to 0.96 at consult. Her PMHx includes HIV for which she sees a local ID doctor (but cannot recall name) and mentions she has had a recent change in medications, HTN, HLD, Hypothyroidism, GERd, HSV-2. Note the patient is a poor historian. Denies any known previous hx of CKD. Does mention she has had multiple issues with kidney stones in the past and says she has seen Dr. Arambula. Has numerous chemistry imbalances with hypokalemia, acidosis, hypophosphatemia, and initially hyponatremia. (Linda Taylor) Review of Systems Constitutional: COMPLAINS OF: Fatigue, Weight loss Gastrointestinal: COMPLAINS OF: Abdominal pain (Linda Taylor) Past Family Social History Allergies: Coded Allergies: Do (Verified Allergy, Severe, 04/02/16) Past Medical History HIV HTN Nephrolithiasis Hypothyroidism GERD HSV-2 Past Surgical History Cyst removal on abdomen Reported Medications Reported Meds & Active Scripts Active Reported Prochlorperazine Maleate 10 Mg Tab 10 Mg PO TID PRN Prochlorperazine Supp (Prochlorperazine) 25 Mg Supp 25 Mg RECTAL QID Zoloft (Sertraline HCl) 25 Mg Tab 25 Mg PO DAILY Megace Liq (Megestrol Acetate) 40 Mg/Ml Susp 400 Mg PO DAILY Descovy (Emtricitabine-Tenofovir Alafenamide) 200-25 mg Tab 1 Tab PO DAILY Potassium Chloride ER (Potassium Chloride) 20 Meq Tab 40 Meq PO DAILY Calcium 600 with Vitamin D (Calcium Carbonate-Cholecalciferol) 600-400 mg-Unit Tab 1 Tab PO BID Milk of Magnesia Liq (Magnesium Hydroxide) 400 Mg/5 Ml Susp 30 Ml PO Q4HR PRN Loperamide (Loperamide HCl) 2 Mg Cap 2 Mg PO DIRECTED PRN Give two capsules for the initial dose then, One capsule after each loose stool. Not to exceed 8 capsules per day. Fleet Enema Rectal (Sodium Phosphates Rectal) 7-19 Gm/118 Ml Enem 118 Ml RECTAL DIRECTED PRN Dulcolax Supp (Bisacodyl) 10 Mg Supp 10 Mg RECTAL DIRECTED PRN Mapap (Acetaminophen) 325 Mg Tab 650 Mg PO Q4HR PRN Mylanta Liq (Fyyhhlqv-Jlmtxtjah-Ltejfttkljq Liq) 200-200-20 Mg/5 Ml Susp 30 Ml PO Q4HR PRN Take between meals or as directed. Shake well. Maximum 120 ml/24 hrs. Latanoprost Opth Drops (Latanoprost) 0.005% Drops 1 Drop EACH EYE HS Refrigerate until opened. [id number] (Ascorbic Acid) 1,000 Mg Tab 1,000 Mg PO DAILY B-12 (Cyanocobalamin) 1,000 Mcg Subl 1,000 Mcg PO BID Tivicay (Dolutegravir Sodium) 50 Mg Tab 50 Mg PO DAILY Thera-M (Multiple Vitamins W/ Minerals) 1 Tab 1 Tab PO DAILY Senna-S 8.6-50 mg (Sennosides-Docusate Sodium) 1 Tab Tab 1 Tab PO TID Prezcobix (Darunavir-Cobicistat) 800-150 Mg Tab 1 Tab PO DAILY Miralax Powder (Polyethylene Glycol 3350 Powder) 17 Gm Powd 17 Gm PO DAILY Mix and dissolve one measuring cap-ful (17 grams) in water or juice. Omeprazole 20 Mg Cap 20 Mg PO DAILY Levothyroxine (Levothyroxine Sodium) 50 Mcg Tab 50 Mcg PO DAILY Lortab (Hydrocodone-Acetaminophen) 5-325 Mg Tab 1 Tab PO TID Gabapentin 300 Mg Cap 300 Mg PO Q8HR Lasix (Furosemide) 40 Mg Tab 40 Mg PO DAILY @ 1300 Ferrous Sulfate 325 Mg Tab 325 Mg PO TID Fenofibrate 160 Mg Tab 160 Mg PO DAILY Colace (Docusate Sodium) 100 Mg Cap 100 Mg PO TID Tums (Calcium Carbonate (Antacid)) 500 Mg Chew 500 Mg CHEW Q12HR Atorvastatin (Atorvastatin Calcium) 20 Mg Tab 20 Mg PO HS Fosamax (Alendronate Sodium) 70 Mg Tab 70 Mg PO Q7D Active Ordered Medications Current Medications Medications (Trade) Dose Ordered Sig/Rodolfo Route Start Time Stop Time Status Last Admin (NS 1000 ml Inj) 1,000 ml @ 100 mls/hr Q10H IV 04/02/16 20:18 04/05/16 08:18 (NS Flush) 2 ml UNSCH PRN FLUSH 04/02/16 20:30 (NS Flush) 2 ml BID FLUSH 04/02/16 21:00 04/05/16 09:00 (Tylenol) 650 mg Q4H PRN PO 04/02/16 20:30 (Zofran Inj) 4 mg Q6H PRN IVP 04/02/16 20:30 (Dulcolax Supp) 10 mg DAILY PRN [place] 04/02/16 20:30 (Senokot) 17.2 mg Q12H PRN PO 04/02/16 20:30 (Heparin Inj) 5,000 units Q12H SQ 04/02/16 21:00 04/05/16 08:51 (Narcan Inj) 0.4 mg UNSCH PRN IV 04/02/16 20:30 (Pepcid) 10 mg BID PO 04/02/16 21:00 04/05/16 08:50 (Tylenol) 650 mg Q4HR PRN PO 04/03/16 07:30 (Fosamax) 70 mg Q7D PO 04/09/16 07:00 (Mag-Al Plus Susp Liq) 30 ml Q4HR PRN PO 04/03/16 07:30 (Vitamin C) 1,000 mg DAILY PO 04/03/16 09:00 04/04/16 12:14 (Lipitor) 20 mg HS PO 04/03/16 21:00 04/03/16 20:50 (Dulcolax Supp) 10 mg DAILY PRN RECTAL 04/03/16 07:30 (Tums Chew) 500 mg Q12HR CHEW 04/03/16 09:00 04/05/16 08:49 (Oscal-D 250-125) 500 mg BID PO 04/03/16 09:00 04/05/16 08:50 (Tricor) 145 mg DAILY PO 04/03/16 09:00 04/05/16 08:49 (Ferrous Sulfate) 325 mg TID PO 04/03/16 09:00 04/05/16 13:55 (Neurontin) 300 mg Q12HR PO 04/03/16 21:00 04/05/16 08:49 ([place] 5-325 Mg) 1 tab TID PO 04/03/16 09:00 04/05/16 13:54 (Xalatan 0.005% Opth Soln) 1 drop HS EACH EYE 04/03/16 21:00 (Synthroid) 50 mcg DAILY@0600 PO 04/03/16 08:15 04/05/16 06:03 (Imodium) 2 mg BID PRN PO 04/03/16 07:30 (Milk Of Magnesia Liq) 30 ml Q4HR PRN PO 04/03/16 07:30 (Megace Liq) 400 mg DAILY PO 04/03/16 09:00 04/05/16 08:50 (Theragran M Tab) 1 tab DAILY PO 04/03/16 09:00 04/05/16 08:52 (Miralax) 17 gm DAILY PO 04/03/16 09:00 04/03/16 10:00 (Nikia-Colace) 1 tab TID PO 04/03/16 09:00 04/04/16 11:59 (Zoloft) 25 mg DAILY PO 04/03/16 09:00 04/05/16 08:51 (Fleets Enema (Adult)) 118 ml DAILY PRN RECTAL 04/03/16 07:30 (Vitamin B12) 1,000 mcg BID PO 04/03/16 09:00 04/05/16 08:50 Miscellaneous 1 ea 1 ea UNSCH PRN OTHER 04/03/16 08:30 Sodium Bicarbonate 100 meq/Potassium Chloride 40 meq/ Sodium Chloride 1,120 ml @ 100 mls/hr [id number] IV 04/03/16 09:00 04/05/16 16:40 (NS 250 ml Inj) 250 ml @ 0 mls/hr BOLUS IV 04/04/16 09:00 04/04/16 09:09 (Truvada 200-300 Mg) 1 tab DAILY PO 04/04/16 09:15 04/05/16 08:52 (Prezista) 800 mg DAILY PO 04/04/16 09:15 04/05/16 08:49 (KCl 40 Meq/30 ml Liq) 40 meq DAILY PO 04/04/16 11:00 04/05/16 08:49 (Mag-Al Plus Susp Liq) 30 ml Q6H PRN PO 04/04/16 15:30 (Ceftin) 500 mg Q12HR PO 04/05/16 13:00 04/19/16 12:59 04/05/16 13:57 Family History NC Social History Lives locally at a nursing facility Denies any tobacco use, no illicit drug use, no EtOH use (Linda Taylor) Physical Exam Vital Signs Vital Signs Date Time Temp Pulse Resp B/P Pulse Ox O2 Delivery O2 Flow Rate FiO2 04/05/16 15:53 97.3 90 18 91/60 98 04/05/16 14:54 20 04/05/16 11:27 97.8 91 20 98/65 100 04/05/16 08:27 98.7 97 16 88/50 100 04/05/16 04:07 98.7 110 18 97/58 98 04/05/16 00:01 98.7 107 16 104/51 96 04/04/16 20:27 97.8 106 21 92/58 97 04/04/16 20:03 99 Physical Exam GENERAL: Laying in bed. Appears older than stated age. Cachectic SKIN: Warm and dry. HEAD: Atraumatic. Normocephalic. EYES: Pupils equal and round. No scleral icterus. No injection or drainage. ENT: No nasal bleeding or discharge. Mucous membranes pink and moist. NECK: Trachea midline. No JVD. CARDIOVASCULAR: Regular rate and rhythm. RESPIRATORY: No accessory muscle use. Clear to auscultation. Breath sounds equal bilaterally. GASTROINTESTINAL: Abdomen soft, non-tender, nondistended. Hepatic and splenic margins not palpable. MUSCULOSKELETAL: Extremities without clubbing, cyanosis, or edema. No obvious deformities. NEUROLOGICAL: Awake and alert. Normal speech. PSYCHIATRIC: Appropriate mood and affect; not a reliable historian Laboratory Laboratory Tests Test 04/05/16 11:06 Sodium Level 149 Potassium Level 3.4 Chloride Level 121 Carbon Dioxide Level 15.3 Anion Gap 13 Blood Urea Nitrogen 7 Creatinine 0.96 Estimat Glomerular Filtration 71 Rate Random Glucose 99 Calcium Level 7.3 Protein Corrected Calcium 8.4 Total Protein 5.1 Date/Time Procedure Status Source Growth 04/02/16 17:55 Influenza Types A,B Antigen (CHACHA) - Final Complete Nasal Washing NEGATIVE FOR FLU A AND B ANTIGEN.... 04/02/16 17:50 Urine Culture - Final Complete Urine Catheterized Urine Escherichia Coli 04/02/16 16:05 Aerobic Blood Culture - Preliminary Resulted Blood Peripheral NO GROWTH IN 3 DAYS 04/02/16 16:05 Anaerobic Blood Culture - Preliminary Resulted Blood Peripheral NO GROWTH IN 3 DAYS (Linda Taylor) Result Diagram: 04/04/16 0635 04/05/16 1106 Imaging Last Impressions Renal Ultrasound 04/05/16 0600 Signed Impressions: Service Date/Time: March 07:52 - CONCLUSION: 1. Multiple nonobstructing calculi in the left renal collecting system, the largest measuring approximately 1.6 cm in diameter. 2. Benign-appearing renal cortical cysts in the right kidney. 3. Punctate echogenic foci in the cortex of the right kidney the junction of the upper and midpole is unchanged without shadowing and may represent a foci of renal cortical fat. 4. Increased echogenicity of the renal cortices symmetrically and bilaterally suggesting some degree of medical renal disease. 5. No significant change from prior. Manuel López MD Abdomen X-Ray 04/05/16 0600 Signed Impressions: Service Date/Time: March 05:54 - CONCLUSION: 1. Findings of small bowel ileus. Followup examination is recommended if clinically indicated. 2. Multiple left renal stones Devyn Rios MD Chest X-Ray 04/02/16 1554 Signed Impressions: Service Date/Time: Saturday, April 02, 2016 16:27 - CONCLUSION: 1. No acute cardiopulmonary process. 2. 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 Manuel López MD Abdomen/Pelvis CT 04/02/16 1554 Signed Impressions: Service Date/Time: Saturday, April 02, 2016 18:41 - CONCLUSION: 1. Nonobstructing renal stones being much more numerous and larger on the left side. The central calcifications in the left kidney resemble a staghorn calculus. 2. Mild dilatation of the right collecting system and right ureter. This suggests there may have been a passed stone. A stone in the right ureter is not seen. 3. Destructive changes at the femoral heads bilaterally. These changes appear chronic. These changes could be secondary to underlying process such as prior avascular necrosis, prior trauma or prior inflammatory change including infection or inflammatory arthritis. Marquis Galo MD (Linda Taylor) Assessment and Plan Problem List: (1) Acute renal insufficiency Plan: Appears to be resolving. Likely related to obstructive uropathy and volume depletion given poor oral intake. We will monitor. (2) HIV (human immunodeficiency virus infection) Plan: Mgmt as per ID (3) Hypokalemia Plan: Her multiple electrolyte abnormalities is likely related to her HIV and medications. Can be exacerbated by her poor nutritional state. She is cachetic and has failure to thrive. Agree with potassium repletion. Looks as though she was on Furosemide as outpatient which has been held. Not certain as to why/if she needs this, but can worsen hypokalemia. Will check urine for lytes to see if she potentially has an underlying wasting syndrome versus RTA. (4) Metabolic acidosis Plan: As above. On IVF with bicarb. Noted that Prezcobix and Descovy can cause both a metabolic acidosis as well as a lactic acidosis. (5) Hypophosphatemia Plan: Related to poor po intake, failure to thrive, as well as medication induced Continue on IV replacement. (6) UTI (lower urinary tract infection) Plan: Mgmt as per primary (7) Anemia Plan: Repeat CBC with Fe panel. Check SPEP (8) Nephrolithiasis Plan: Mgmt as per urology. (Linda Taylor) Assessment and Plan Suspect the patient's electrolyte abnormalities are related to her HIV medications as well as poor nutritional intake. Proteinase inhibitors and reverse transcriptase inhibitors can be associated with hypophosphatemia. In addition tenofovir can be associated with Fanconi syndrome which can result in a proximal RTA as well as electrolyte abnormalities. Workup as ordered. The exam, history, and the medical decision-making described in the above note were completed with the assistance of the [facility]. I reviewed and agree with the findings presented. I attest that I had a [id number] encounter with the patient on the same day, and personally performed and documented my assessment and findings in the medical record. (Laxmi Reyes MD) Problem Qualifiers (1) Anemia: Linda Taylor Apr 05, 2016 19:17 Laxmi Reyes MD Apr 06, 2016 18:50
[2016-04-05 20:40] LABS: FERRITIN 796 NG/ML (8-252); MAGNESIUM 1.7 MG/DL (1.5-2.5); TRANSFERRIN IRON PROFILE 84 MG/DL (200-360)
[2016-04-05] MEDS: ATORVASTATIN 20 MG TAB PO SCH (20:41)
[2016-04-05] MEDS: LATANOPROST 0.005% OPHT SOLN 2.5 ML BTL EACH EYE SCH (21:00)
[2016-04-06] VITALS (7 sets, daily range): BP systolic 90–99; BP diastolic 54–63; PULSE 58–99; RESP 16–18; TEMP 98–98.8; O2SAT 95–98
[2016-04-06] MEDS: POTASSIUM CHLORIDE IV SCH ×2 (04:12→16:59)
[2016-04-06] MEDS: [UNRECOGNIZED DRUG - OTHER] IV SCH ×2 (04:12→16:59)
[2016-04-06] MEDS: SODIUM BICARBONATE IV SCH ×2 (04:12→16:59)
[2016-04-06] MEDS: LEVOTHYROXINE SODIUM 50 MCG TAB PO SCH (05:52)
[2016-04-06 07:52] LABS: CD4/CD8 RATIO 0.5 (0.86-5.00)
[2016-04-06] MEDS: SODIUM CHLORIDE 0.9% FLUSH 5 ML FLUSH FLUSH SCH ×2 (09:00→20:26)
[2016-04-06] MEDS: POLYETHYLENE GLYCOL 17 GM PKG PO SCH (09:00)
[2016-04-06] MEDS: CALCIUM/VITAMIN D 250 MG/125 U TAB PO SCH ×2 (09:00→20:24)
--- NOTE | 2016-04-06 09:06 | HHI.PR ---
Subjective Subjective Remarks diffuse abd. tenderness no cp no sob very weak no fever no acute changes overnight BP 90/50s Review of Systems Constitutional Constitutional Remarks 12 point ROS unreliable Vitals/Results Intake & Output 04/05/16 04/05/16 04/06/16 15:00 23:00 07:00 Intake Total 720 ml 1070 ml Balance 720 ml 1070 ml Intake Oral 720 ml 1070 ml Vital Signs Vital Signs Date Time Temp Pulse Resp B/P Pulse Ox O2 Delivery O2 Flow Rate FiO2 04/06/16 07:16 98.0 85 18 90/57 98 04/06/16 01:37 98.4 58 18 96/54 97 04/05/16 20:40 98.7 97 21 97/65 98 04/05/16 20:15 80 04/05/16 19:50 12 04/05/16 15:53 97.3 90 18 91/60 98 04/05/16 11:27 97.8 91 20 98/65 100 CBC/BMP: 04/04/16 0635 04/05/16 1106 Lab Results Laboratory Tests Test 04/05/16 11:06 Sodium Level 149 MEQ/L Potassium Level 3.4 MEQ/L Chloride Level 121 MEQ/L Carbon Dioxide Level 15.3 MEQ/L Anion Gap 13 MEQ/L Blood Urea Nitrogen 7 MG/DL Creatinine 0.96 MG/DL Estimat Glomerular Filtration 71 ML/MIN Rate Random Glucose 99 MG/DL Calcium Level 7.3 MG/DL Protein Corrected Calcium 8.4 MG/DL Magnesium Level 1.7 MG/DL Iron Level 110 MCG/DL Total Iron Binding Capacity 118 MCG/DL Percent Iron Saturation 93.5 % Ferritin 796 NG/ML Total Protein 5.1 GM/DL 25-Hydroxy Vitamin D Total 30.0 ng/ML Physical Exam General General Appearance: Well Developed, Malnourished Eyes Eye Exam: Pupils Equal, Pupils Reactive Ears & Nose Ears & Nose Exam: Nasal Mucosa [place] Throat Throat Exam: Oral Mucosa [place] & Moist Neck Neck Exam: Neck Supple, Trachea Midline Pulmonary Resp Exam: No Distress, Decreased Bases Cardiology CV Exam: Regular Gastrointestinal/Abdomen GI Exam: Soft, Bowel Sounds Present, Non-Distended GI Remarks diffuse tenderness Musculoskeletal MS Exam: Joints Intact, Atrophy Integumentary Skin Exam: Warm, Dry Extremeties Extremities Exam: Pedal Pulses Palpable, Trace Edema Neurologic Neuro Exam: Alert, Awake, Speech Clear, Moving All Extremities, No Focal Deficits VTE Prophylaxis VTE Prophylaxis Meds: Heparin Assessment/Plan Problem List: (1) Sepsis (2) HIV (human immunodeficiency virus infection) (3) UTI (lower urinary tract infection) (4) Metabolic acidosis (5) Hypophosphatemia (6) Nephrolithiasis (7) Malnourished (8) Thrush (9) Leukocytosis (10) Bilateral kidney stones (11) Hypokalemia (12) Anemia (13) Acute renal insufficiency Assessment/Plan Continue bicarb drip 75/hr appreciate urology, ID, nephrology input continue with antibiotics, follow cultures UA + Ecoli continue with conservative management, may need lithotripsy as OP monitor HH, anemia, sec. CKD, low iron stores BP marginal hold BP meds Abd. xray noted, mild ileus poor nutritional status continue Megace Continue HAART Replace electrolytes Stool cdiff pending Monitor WBC, remains elevated Heparin for DVT prophylaxis Pepcid for GI prophylaxis Labs in am D/W RN D/W Dr. Pelayo D/W pt. This patient was seen by myself and Dr. Pelayo, this note is written on his behalf. Problem Qualifiers (1) Sepsis: Qualified Code: A41.51 - Sepsis due to Escherichia coli (2) Leukocytosis: Qualified Code: D72.829 - Leukocytosis, unspecified type (3) Anemia: Doretha Bennett Apr 06, 2016 09:06
[2016-04-06 09:15] LABS: BASOPHIL % 0.6 % (0.0-2.0); EOSINOPHIL % 0.5 % (0.0-4.0); HEMATOCRIT 25.2 % (35.0-46.0); LYMPHOCYTE # 2.1 TH/MM3 (1.0-4.8); MEAN CORPUSCULAR HEMOGLOBIN 30.4 PG (27.0-34.0); MEAN CORPUSCULAR HGB CONC 33.1 % (32.0-36.0); MONO % 6.1 % (0.0-8.0); NEUT % 65.8 % (16.0-70.0); PLATELET COUNT 326 TH/MM3 (150-450); RED BLOOD COUNT 2.74 MIL/MM3 (4.00-5.30); RED CELL DISTRIBUTION WIDTH 16.4 % (11.6-17.2); WHITE BLOOD COUNT 7.6 TH/MM3 (4.0-11.0)
[2016-04-06 09:20] LABS: BICARBONATE 18.2 MEQ/L (21.0-32.0); HEMO FLAGS AUTO DIFF; POTASSIUM 3.7 MEQ/L (3.5-5.1)
[2016-04-06 09:34] LABS: CALCIUM-PROTEIN CORRECTED 8.7 MG/DL (8.5-10.1)
[2016-04-06] MEDS: MULTIVITAMINS/MINERALS THERAPEUTIC TAB PO SCH (09:39)
[2016-04-06] MEDS: HEPARIN SODIUM - SQ 10,000 UNITS/ML VIAL SQ SCH ×2 (09:39→20:25)
[2016-04-06] MEDS: FERROUS SULFATE 325 MG (65 MG ELEMENTAL IRON) TAB PO SCH ×3 (09:40→17:00)
[2016-04-06] MEDS: FAMOTIDINE 20 MG TAB PO SCH ×2 (09:40→20:24)
[2016-04-06] MEDS: ACETAMINOPHEN/HYDROcodone 325 MG/5 MG TAB PO SCH ×3 (09:41→17:00)
[2016-04-06] MEDS: CALCIUM CARBONATE 500 MG CHEWABLE TAB CHEW SCH ×2 (09:42→20:24)
[2016-04-06] MEDS: FENOFIBRATE 145 MG TAB PO SCH (09:42)
[2016-04-06] MEDS: GABAPENTIN 300 MG CAP PO SCH ×2 (09:42→20:24)
[2016-04-06] MEDS: ASCORBIC ACID 500 MG TAB PO SCH (09:43)
[2016-04-06] MEDS: DOCUSATE SODIUM 50 MG/SENNA 8.6 MG TAB PO SCH ×4 (09:43→17:00)
[2016-04-06] MEDS: DOLUTEGRAVIR SODIUM 50 MG TAB PO SCH (09:58)
[2016-04-06] MEDS: SERTRALINE HCL 50 MG TAB PO SCH (09:58)
[2016-04-06] MEDS: CEFUROXIME AXETIL 500 MG TAB PO SCH ×2 (09:59→20:24)
[2016-04-06] MEDS: DARUNAVIR 800 MG TAB PO SCH (09:59)
[2016-04-06] MEDS: EMTRICITABINE/TENOFOVIR 200 MG/300 MG TAB PO SCH (09:59)
[2016-04-06] MEDS: POTASSIUM CL 40 MEQ/30 ML LIQ UDC PO SCH (10:08)
[2016-04-06] MEDS: CYANOCOBALAMIN 1,000 MCG TAB PO SCH ×2 (10:08→20:23)
[2016-04-06 10:30] LABS: EOSINOPHILS 1 % (0-4); NEUTROPHIL # MANUAL DIFF 5.2 TH/MM3 (1.8-7.7); POLYS (SEG NEUTROPHILS) 69 % (16-70); WBC DIFF SAMPLE 100
[2016-04-06 10:31] LABS: KERATOCYTES OCC (NORMAL)
[2016-04-06 10:32] LABS: PLATELET ESTIMATE SMEAR NORMAL (NORMAL); PLATELET MORPHOLOGY NORMAL (NORMAL); SCAN/DIFF FINAL DIFF MANUAL; TARGET CELLS 1+ (NORMAL)
[2016-04-06 11:18] LABS: TOTAL PROTEIN SPE 4.5 GM/DL (6.0-7.6)
[2016-04-06] MEDS: MEGESTROL ACETATE SUSP 400 MG/10 ML CUP PO SCH (12:44)
--- NOTE | 2016-04-06 18:57 | HHI.NPPN ---
Subjective History of Present Illness The patient is a 65 yo AA female who presented to the hospital on 04/02 with complaints of abdominal pain, anorexia, nausea, vomiting. 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 Urology has seen the patient and as her symptoms have been improving, they have chosen a conservative approach for the present with consideration of Lithotripsy as outpatient. Repeat renal US shows resolution of hydronephrosis. She initially had an acute renal decline with SCr at 1.45 that has improved to 0.96 at consult. Her PMHx includes HIV for which she sees a local ID doctor (but cannot recall name) and mentions she has had a recent change in medications, HTN, HLD, Hypothyroidism, GERd, HSV-2. Note the patient is a poor historian. Denies any known previous hx of CKD. Does mention she has had multiple issues with kidney stones in the past and says she has seen Dr. Arambula. Has numerous chemistry imbalances with hypokalemia, acidosis, hypophosphatemia, and initially hyponatremia. Interval History Patient appears to be very debilitated, emaciated. Anorexia. Review of Systems General Constitutional: Fatigue Objective Data Data 04/05/16 04/06/16 19:00 07:00 Intake Total 1790 ml Balance 1790 ml Intake Oral 1790 ml Vital Signs Date Time Temp Pulse Resp B/P Pulse Ox O2 Delivery O2 Flow Rate FiO2 04/06/16 16:13 98.0 99 16 97/63 98 04/06/16 11:02 98.5 86 16 98/58 95 04/06/16 10:40 81 04/06/16 07:16 98.0 85 18 90/57 98 04/06/16 01:37 98.4 58 18 96/54 97 04/05/16 20:40 98.7 97 21 97/65 98 04/05/16 20:15 80 04/05/16 19:50 12 -: 04/06/16 0715 04/06/16 0715 Physical Exam General Appearance: Malnourished Eyes Eye Exam: Sclera White Ears & Nose Ears & Nose Exam: Nasal Mucosa [place] Throat Throat Exam: Oral Mucosa [place] & Moist Neck Neck Exam: Neck Supple, Trachea Midline Pulmonary Resp Exam: No Distress, Decreased Bases Cardiology CV Exam: Regular Gastrointestinal/Abdomen GI Exam: Soft, Bowel Sounds Present, Non-Distended Musculoskeletal MS Exam: Joints Intact, Atrophy Integumentary Skin Exam: Warm, Dry Extremeties Extremities Exam: Trace Edema Neurologic Neuro Exam: Alert, Awake, Speech Clear, Moving All Extremities, No Focal Deficits Assessment/Plan Problem List: (1) Acute renal insufficiency Plan: Appears to be resolving. Likely related to obstructive uropathy and volume depletion given poor oral intake. We will monitor. (2) HIV (human immunodeficiency virus infection) Plan: Mgmt as per ID (3) Hypokalemia Plan: Her multiple electrolyte abnormalities is likely related to her HIV and medications. Can be exacerbated by her poor nutritional state. She is cachetic and has failure to thrive. Agree with potassium repletion. Urine electrolytes still pending. Await the result. (4) Metabolic acidosis Plan: Await urine electrolytes. Continue IV bicarbonate. If the urine pH continues to increase to greater than 7.5 I would strongly suspect the patient has Fanconi syndrome secondary Tenofovir. (5) Hypophosphatemia Plan: Related to poor po intake, failure to thrive, as well as medication induced We'll order Neutra-Phos. 24-hour urine phosphate. (6) UTI (lower urinary tract infection) Plan: Mgmt as per primary (7) Anemia Plan: Repeat CBC with Fe panel. Check SPEP (8) Nephrolithiasis Plan: Mgmt as per urology. Problem Qualifiers (1) Anemia: Laxmi Reyes MD Apr 06, 2016 18:56
[2016-04-06] MEDS ORDERED: POTASSIUM PHOSPHATE/SODIUM PHOSPHATE 250 MG TAB PO ONE (20:00)
[2016-04-06] MEDS: SODIUM BICARBONATE 8.4% INJ 100 MEQ in DEXTROSE 5% IN WATE 1000ML INJ 1,000 ML IV SCH ×2 (20:00)
[2016-04-06] MEDS: ATORVASTATIN 20 MG TAB PO SCH (20:24)
[2016-04-06] MEDS: LATANOPROST 0.005% OPHT SOLN 2.5 ML BTL EACH EYE SCH (21:00)
[2016-04-07] VITALS (7 sets, daily range): BP systolic 96–134; BP diastolic 52–92; PULSE 62–102; RESP 15–22; TEMP 96.6–98.7; O2SAT 97–100
[2016-04-07] MEDS: LEVOTHYROXINE SODIUM 50 MCG TAB PO SCH (05:19)
[2016-04-07 06:05] LABS: HEMATOCRIT 23.8 % (35.0-46.0); MEAN CELL VOLUME 90.4 FL (80.0-100.0); MEAN CORPUSCULAR HEMOGLOBIN 30.7 PG (27.0-34.0); PLATELET COUNT 335 TH/MM3 (150-450); RED BLOOD COUNT 2.63 MIL/MM3 (4.00-5.30); RED CELL DISTRIBUTION WIDTH 16.2 % (11.6-17.2); REVIEW FLAG FINAL; WHITE BLOOD COUNT 7.8 TH/MM3 (4.0-11.0)
[2016-04-07 06:38] LABS: BICARBONATE 18.4 MEQ/L (21.0-32.0); POTASSIUM 3.7 MEQ/L (3.5-5.1)
[2016-04-07 07:05] LABS: CALCIUM-PROTEIN CORRECTED 8.7 MG/DL (8.5-10.1)
--- NOTE | 2016-04-07 08:16 | HHI.PR ---
Subjective Subjective Remarks awake, oriented to self, thinks she's at SNF has mild pain, doesn't know where no acute changes overnight BP better Review of Systems Constitutional Constitutional Remarks 12 point ROS unreliable Vitals/Results Vital Signs Vital Signs Date Time Temp Pulse Resp B/P Pulse Ox O2 Delivery O2 Flow Rate FiO2 04/07/16 08:05 98.7 95 16 134/92 100 04/07/16 04:00 98.0 62 18 98/58 97 04/06/16 20:58 98.8 93 18 99/58 97 04/06/16 20:00 90 04/06/16 16:13 98.0 99 16 97/63 98 04/06/16 11:02 98.5 86 16 98/58 95 04/06/16 10:40 81 CBC/BMP: 04/07/16 0534 04/07/16 0534 Lab Results Laboratory Tests Test 04/07/16 05:34 White Blood Count 7.8 TH/MM3 Red Blood Count 2.63 MIL/MM3 Hemoglobin 8.1 GM/DL Hematocrit 23.8 % Mean Corpuscular Volume 90.4 FL Mean Corpuscular Hemoglobin 30.7 PG Mean Corpuscular Hemoglobin 34.0 % Concent Red Cell Distribution Width 16.2 % Platelet Count 335 TH/MM3 Mean Platelet Volume 8.2 FL Sodium Level 145 MEQ/L Potassium Level 3.7 MEQ/L Chloride Level 118 MEQ/L Carbon Dioxide Level 18.4 MEQ/L Anion Gap 9 MEQ/L Blood Urea Nitrogen 4 MG/DL Creatinine 0.87 MG/DL Estimat Glomerular Filtration 79 ML/MIN Rate Random Glucose 82 MG/DL Calcium Level 7.2 MG/DL Protein Corrected Calcium 8.7 MG/DL Total Protein 4.4 GM/DL Physical Exam General General Appearance: No Acute Distress, Malnourished Eyes Eye Exam: Pupils Equal, Pupils Reactive, Sclera White Ears & Nose Ears & Nose Exam: Nasal Mucosa [place] Throat Throat Exam: Oral Mucosa [place] & Moist Neck Neck Exam: Neck Supple, Trachea Midline Pulmonary Resp Exam: No Distress, Decreased Bases Cardiology CV Exam: Regular Gastrointestinal/Abdomen GI Exam: Soft, Non-Tender, Bowel Sounds Present, Non-Distended Musculoskeletal MS Exam: Joints Intact, Atrophy Integumentary Skin Exam: Warm, Dry Extremeties Extremities Exam: Trace Edema Neurologic Neuro Exam: Alert, Awake, Speech Clear, Moving All Extremities, No Focal Deficits VTE Prophylaxis VTE Prophylaxis Meds: Heparin Assessment/Plan Problem List: (1) Sepsis (2) HIV (human immunodeficiency virus infection) (3) UTI (lower urinary tract infection) (4) Metabolic acidosis (5) Hypophosphatemia (6) Nephrolithiasis (7) Malnourished (8) Thrush (9) Leukocytosis (10) Bilateral kidney stones (11) Hypokalemia (12) Anemia (13) Acute renal insufficiency Assessment/Plan changed to D5W with bicarb at 75/hr per renal CO2 better 18.4 per nephrology, poss. Fanconi syndrome secondary Tenofovir. appreciate urology, ID, nephrology input continue with antibiotics, follow cultures UA + Ecoli continue with conservative management, may need lithotripsy as OP monitor HH, anemia, sec. CKD, low iron stores BP stable 10 continue with IVF Abd. xray noted, mild ileus poor nutritional status continue Megace Continue HAART Stool cdiff pending WBC better OOB, PT eval Heparin for DVT prophylaxis Pepcid for GI prophylaxis Labs in am D/W RN D/W Dr. Pelayo D/W pt. This patient was seen by myself and Dr. Pelayo, this note is written on his behalf. Problem Qualifiers (1) Sepsis: Qualified Code: A41.51 - Sepsis due to Escherichia coli (2) Leukocytosis: Qualified Code: D72.829 - Leukocytosis, unspecified type (3) Anemia: Doretha Bennett Apr 07, 2016 08:16 Doretha Bennett Apr 07, 2016 08:16
[2016-04-07] MEDS: SODIUM CHLORIDE 0.9% FLUSH 5 ML FLUSH FLUSH SCH ×2 (10:04→21:00)
[2016-04-07] MEDS: SODIUM BICARBONATE 8.4% INJ 100 MEQ in DEXTROSE 5% IN WATE 1000ML INJ 1,000 ML IV SCH ×2 (10:05)
[2016-04-07] MEDS: POTASSIUM CL 40 MEQ/30 ML LIQ UDC PO SCH (10:06)
[2016-04-07] MEDS: HEPARIN SODIUM - SQ 10,000 UNITS/ML VIAL SQ SCH ×2 (10:08→22:02)
[2016-04-07] MEDS: POLYETHYLENE GLYCOL 17 GM PKG PO SCH (10:08)
[2016-04-07] MEDS: CALCIUM/VITAMIN D 250 MG/125 U TAB PO SCH ×2 (10:09→21:57)
[2016-04-07] MEDS: CYANOCOBALAMIN 1,000 MCG TAB PO SCH ×2 (10:09→21:57)
[2016-04-07] MEDS: DARUNAVIR 800 MG TAB PO SCH (10:09)
[2016-04-07] MEDS: DOLUTEGRAVIR SODIUM 50 MG TAB PO SCH (10:09)
[2016-04-07] MEDS: EMTRICITABINE/TENOFOVIR 200 MG/300 MG TAB PO SCH (10:10)
[2016-04-07] MEDS: FERROUS SULFATE 325 MG (65 MG ELEMENTAL IRON) TAB PO SCH ×3 (10:10→17:16)
[2016-04-07] MEDS: CEFUROXIME AXETIL 500 MG TAB PO SCH ×2 (10:10→21:57)
[2016-04-07] MEDS: ACETAMINOPHEN/HYDROcodone 325 MG/5 MG TAB PO SCH ×3 (10:11→17:19)
[2016-04-07] MEDS: CALCIUM CARBONATE 500 MG CHEWABLE TAB CHEW SCH ×2 (10:11→21:57)
[2016-04-07] MEDS: GABAPENTIN 300 MG CAP PO SCH ×2 (10:11→21:57)
[2016-04-07] MEDS: MULTIVITAMINS/MINERALS THERAPEUTIC TAB PO SCH (10:11)
[2016-04-07] MEDS: ASCORBIC ACID 500 MG TAB PO SCH (10:12)
[2016-04-07] MEDS: SERTRALINE HCL 50 MG TAB PO SCH (10:12)
[2016-04-07] MEDS: FAMOTIDINE 20 MG TAB PO SCH ×2 (10:12→21:57)
[2016-04-07] MEDS: DOCUSATE SODIUM 50 MG/SENNA 8.6 MG TAB PO SCH ×3 (10:12→18:00)
[2016-04-07] MEDS: FENOFIBRATE 145 MG TAB PO SCH (10:12)
[2016-04-07] MEDS: MEGESTROL ACETATE SUSP 400 MG/10 ML CUP PO SCH (10:57)
[2016-04-07] MEDS: ATORVASTATIN 20 MG TAB PO SCH (22:02)
[2016-04-07] MEDS: LATANOPROST 0.005% OPHT SOLN 2.5 ML BTL EACH EYE SCH (23:08)
[2016-04-08] VITALS (7 sets, daily range): BP systolic 78–107; BP diastolic 50–65; PULSE 81–98; RESP 16–20; TEMP 97.6–98.8; O2SAT 96–100
[2016-04-08] MEDS: SODIUM BICARBONATE 8.4% INJ 100 MEQ in DEXTROSE 5% IN WATE 1000ML INJ 1,000 ML IV SCH ×4 (00:52→16:00)
[2016-04-08] MEDS: LEVOTHYROXINE SODIUM 50 MCG TAB PO SCH (05:56)
[2016-04-08 06:35] LABS: BICARBONATE 20.4 MEQ/L (21.0-32.0); POTASSIUM 3.3 MEQ/L (3.5-5.1)
[2016-04-08 07:14] LABS: CALCIUM-PROTEIN CORRECTED 9.1 MG/DL (8.5-10.1)
[2016-04-08] MEDS: SODIUM CHLORIDE 0.9% FLUSH 5 ML FLUSH FLUSH SCH ×2 (09:00→21:00)
[2016-04-08] MEDS: FAMOTIDINE 20 MG TAB PO SCH ×2 (09:00→22:14)
[2016-04-08] MEDS: CALCIUM/VITAMIN D 250 MG/125 U TAB PO SCH ×2 (09:00→22:14)
[2016-04-08] MEDS: SERTRALINE HCL 50 MG TAB PO SCH (09:00)
[2016-04-08] MEDS: POLYETHYLENE GLYCOL 17 GM PKG PO SCH (09:00)
[2016-04-08] MEDS: POTASSIUM CL 40 MEQ/30 ML LIQ UDC PO SCH (09:00)
[2016-04-08] MEDS: MEGESTROL ACETATE SUSP 400 MG/10 ML CUP PO SCH (09:00)
[2016-04-08] MEDS: FENOFIBRATE 145 MG TAB PO SCH (09:42)
[2016-04-08] MEDS: CEFUROXIME AXETIL 500 MG TAB PO SCH ×2 (09:43→22:14)
[2016-04-08] MEDS: ACETAMINOPHEN/HYDROcodone 325 MG/5 MG TAB PO SCH ×3 (09:44→18:00)
[2016-04-08] MEDS: DOLUTEGRAVIR SODIUM 50 MG TAB PO SCH (09:45)
[2016-04-08] MEDS: ASCORBIC ACID 500 MG TAB PO SCH (09:45)
[2016-04-08] MEDS: MULTIVITAMINS/MINERALS THERAPEUTIC TAB PO SCH (09:46)
[2016-04-08] MEDS: GABAPENTIN 300 MG CAP PO SCH ×2 (09:46→22:14)
[2016-04-08] MEDS: DOCUSATE SODIUM 50 MG/SENNA 8.6 MG TAB PO SCH ×3 (09:46→17:11)
[2016-04-08] MEDS: FERROUS SULFATE 325 MG (65 MG ELEMENTAL IRON) TAB PO SCH ×3 (09:46→17:11)
[2016-04-08] MEDS: CALCIUM CARBONATE 500 MG CHEWABLE TAB CHEW SCH ×2 (09:46→22:14)
[2016-04-08] MEDS: HEPARIN SODIUM - SQ 10,000 UNITS/ML VIAL SQ SCH ×2 (09:47→22:19)
[2016-04-08] MEDS: ONDANSETRON HCL 4 MG/2 ML VIAL IVP PRN (09:56)
[2016-04-08] MEDS: EMTRICITABINE/TENOFOVIR 200 MG/300 MG TAB PO SCH (10:21)
[2016-04-08] MEDS: DARUNAVIR 800 MG TAB PO SCH (10:21)
[2016-04-08] MEDS: CYANOCOBALAMIN 1,000 MCG TAB PO SCH ×2 (10:24→22:14)
--- NOTE | 2016-04-08 11:07 | HHI.NPPN ---
Subjective History of Present Illness The patient is a 65 yo AA female who presented to the hospital on 04/02 with complaints of abdominal pain, anorexia, nausea, vomiting. 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 Urology has seen the patient and as her symptoms have been improving, they have chosen a conservative approach for the present with consideration of Lithotripsy as outpatient. Repeat renal US shows resolution of hydronephrosis. She initially had an acute renal decline with SCr at 1.45 that has improved to 0.96 at consult. Her PMHx includes HIV for which she sees a local ID doctor (but cannot recall name) and mentions she has had a recent change in medications, HTN, HLD, Hypothyroidism, GERd, HSV-2. Note the patient is a poor historian. Denies any known previous hx of CKD. Does mention she has had multiple issues with kidney stones in the past and says she has seen Dr. Arambula. Has numerous chemistry imbalances with hypokalemia, acidosis, hypophosphatemia, and initially hyponatremia. Interval History Pt voices no new complaints today. (Linda Taylor) Review of Systems General Constitutional: Fatigue (Linda Taylor) Objective Data Data 04/07/16 04/08/16 19:00 07:00 Intake Total 400 ml 1336 ml Balance 400 ml 1336 ml Intake Oral 400 ml 180 ml IV Total 1156 ml # Voids 3 5 # Bowel Movements 2 0 Vital Signs Date Time Temp Pulse Resp B/P Pulse Ox O2 Delivery O2 Flow Rate FiO2 04/08/16 08:00 97.6 86 17 107/65 100 04/08/16 03:44 98.1 89 20 99/62 100 04/08/16 00:00 97.6 88 20 100/57 100 04/07/16 21:55 90 04/07/16 20:00 96.6 102 22 103/63 100 04/07/16 16:00 98.1 90 15 96/52 99 04/07/16 12:16 97.7 95 16 102/56 100 04/07/16 11:11 18 (Linda Taylor) -: 04/07/16 0534 04/08/16 0525 Medication Review Current Medications Medications (Trade) Dose Ordered Sig/Rodolfo Route Start Time Stop Time Status Last Admin (NS Flush) 2 ml UNSCH PRN FLUSH 04/02/16 20:30 (NS Flush) 2 ml BID FLUSH 04/02/16 21:00 04/07/16 10:04 (Tylenol) 650 mg Q4H PRN PO 04/02/16 20:30 (Zofran Inj) 4 mg Q6H PRN IVP 04/02/16 20:30 04/08/16 09:56 (Dulcolax Supp) 10 mg DAILY PRN OH 04/02/16 20:30 (Senokot) 17.2 mg Q12H PRN PO 04/02/16 20:30 (Heparin Inj) 5,000 units Q12H SQ 04/02/16 21:00 04/08/16 09:47 (Narcan Inj) 0.4 mg UNSCH PRN IV 04/02/16 20:30 (Pepcid) 10 mg BID PO 04/02/16 21:00 04/07/16 21:57 (Tylenol) 650 mg Q4HR PRN PO 04/03/16 07:30 (Fosamax) 70 mg Q7D PO 04/09/16 07:00 (Mag-Al Plus Susp Liq) 30 ml Q4HR PRN PO 04/03/16 07:30 (Vitamin C) 1,000 mg DAILY PO 04/03/16 09:00 04/08/16 09:45 (Lipitor) 20 mg HS PO 04/03/16 21:00 04/07/16 22:02 (Dulcolax Supp) 10 mg DAILY PRN RECTAL 04/03/16 07:30 (Tums Chew) 500 mg Q12HR CHEW 04/03/16 09:00 04/08/16 09:46 (Oscal-D 250-125) 500 mg BID PO 04/03/16 09:00 04/07/16 21:57 (Tricor) 145 mg DAILY PO 04/03/16 09:00 04/08/16 09:42 (Ferrous Sulfate) 325 mg TID PO 04/03/16 09:00 04/08/16 09:46 (Neurontin) 300 mg Q12HR PO 04/03/16 21:00 04/08/16 09:46 ([place] 5-325 Mg) 1 tab TID PO 04/03/16 09:00 04/08/16 09:44 (Xalatan 0.005% Opth Soln) 1 drop HS EACH EYE 04/03/16 21:00 04/07/16 23:08 (Synthroid) 50 mcg DAILY@0600 PO 04/03/16 08:15 04/08/16 05:56 (Imodium) 2 mg BID PRN PO 04/03/16 07:30 (Milk Of Magnesia Liq) 30 ml Q4HR PRN PO 04/03/16 07:30 (Megace Liq) 400 mg DAILY PO 04/03/16 09:00 04/07/16 10:57 (Theragran M Tab) 1 tab DAILY PO 04/03/16 09:00 04/08/16 09:46 (Miralax) 17 gm DAILY PO 04/03/16 09:00 04/07/16 10:08 (Nikia-Colace) 1 tab TID PO 04/03/16 09:00 04/08/16 09:46 (Zoloft) 25 mg DAILY PO 04/03/16 09:00 04/07/16 10:12 (Fleets Enema (Adult)) 118 ml DAILY PRN RECTAL 04/03/16 07:30 (Vitamin B12) 1,000 mcg BID PO 04/03/16 09:00 04/08/16 10:24 Miscellaneous 1 ea 1 ea UNSCH PRN OTHER 04/03/16 08:30 (NS 250 ml Inj) 250 ml @ 0 mls/hr BOLUS IV 04/04/16 09:00 04/04/16 09:09 (Truvada 200-300 Mg) 1 tab DAILY PO 04/04/16 09:15 04/08/16 10:21 (Prezista) 800 mg DAILY PO 04/04/16 09:15 04/08/16 10:21 (KCl 40 Meq/30 ml Liq) 40 meq DAILY PO 04/04/16 11:00 04/07/16 10:06 (Mag-Al Plus Susp Liq) 30 ml Q6H PRN PO 04/04/16 15:30 Cefuroxime Axetil 500 mg 500 mg Q12HR PO 04/05/16 13:00 04/19/16 12:59 04/08/16 09:43 (Sodium Bicarbonate 8.4% Inj/D5W 1000 ml Inj) 1,100 ml @ 75 mls/hr [id number] IV 04/06/16 20:00 04/08/16 00:52 (Linda Taylor) Physical Exam General Appearance: No Acute Distress, Malnourished (Linda Taylor) Eyes Eye Exam: Pupils Equal, Pupils Reactive, Sclera White (Linda Taylor) Ears & Nose Ears & Nose Exam: Nasal Mucosa [place] (Linda Taylor) Throat Throat Exam: Oral Mucosa [place] & Moist (Linda Taylor) Neck Neck Exam: Neck Supple, Trachea Midline (Linda Taylor) Pulmonary Resp Exam: No Distress, Decreased Bases (Linda Taylor) Cardiology CV Exam: Regular (Linda Taylor) Gastrointestinal/Abdomen GI Exam: Soft, Non-Tender, Bowel Sounds Present, Non-Distended (Linda Taylor) Musculoskeletal MS Exam: Joints Intact, Atrophy (Linda Taylor) Integumentary Skin Exam: Warm, Dry (Linda Taylor) Extremeties Extremities Exam: Trace Edema (Linda Taylor) Neurologic Neuro Exam: Alert, Awake, Speech Clear, Moving All Extremities, No Focal Deficits (Linda Taylor) Assessment/Plan Problem List: (1) Acute renal insufficiency Plan: Resolved Likely related to obstructive uropathy and volume depletion given poor oral intake. We will monitor. (2) HIV (human immunodeficiency virus infection) Plan: Mgmt as per ID (3) Hypokalemia Plan: Her multiple electrolyte abnormalities is likely related to her HIV and medications. Can be exacerbated by her poor nutritional state. She is cachetic and has failure to thrive. Extra dose of 40meq ordered today. Urine lytes have been ordered some time ago, but appears not done. Reordered today (4) Metabolic acidosis Plan: As above. Reordered urine lytes as not done. Continue IV bicarbonate. If the urine pH continues to increase to greater than 7.5 I would strongly suspect the patient has Fanconi syndrome secondary Tenofovir. (5) Hypophosphatemia Plan: Related to poor po intake, failure to thrive, as well as medication induced Continue Neutra-Phos. 24-hour urine phosphate. (6) UTI (lower urinary tract infection) Plan: Mgmt as per primary (7) Anemia Plan: Hg dropping Fe stores normal Awaiting SPEP (8) Nephrolithiasis Plan: Mgmt as per urology. (Linda Taylor) Plan The exam, history, and the medical decision-making described in the above note were completed with the assistance of the [facility]. I reviewed and agree with the findings presented. (Laxmi Reyes MD) Problem Qualifiers (1) Anemia: Linda Taylor Apr 08, 2016 11:07 Laxmi Reyes MD Apr 09, 2016 12:27
[2016-04-08] MEDS ORDERED: POTASSIUM CL 40 MEQ/30 ML LIQ UDC PO ONE (11:15)
--- NOTE | 2016-04-08 11:18 | HHI.PR ---
Subjective Interval History Patient is feeling tired and weak No pain next line no shortness of breath No diarrhea No abdominal pain or chest pain Breathing better Review of system for 10 point system otherwise unremarkable as per RN had bowel movement yesterday not today Vitals/Results Intake & Output 04/07/16 04/07/16 04/08/16 15:00 23:00 07:00 Intake Total 400 ml 690 ml 646 ml Balance 400 ml 690 ml 646 ml Intake Oral 400 ml 120 ml 60 ml IV Total 570 ml 586 ml # Voids 2 2 4 # Bowel Movements 2 0 0 Vital Signs Vital Signs Date Time Temp Pulse Resp B/P Pulse Ox O2 Delivery O2 Flow Rate FiO2 04/08/16 08:00 97.6 86 17 107/65 100 04/08/16 03:44 98.1 89 20 99/62 100 04/08/16 00:00 97.6 88 20 100/57 100 04/07/16 21:55 90 04/07/16 20:00 96.6 102 22 103/63 100 04/07/16 16:00 98.1 90 15 96/52 99 04/07/16 12:16 97.7 95 16 102/56 100 CBC/BMP: 04/07/16 0534 04/08/16 0525 Lab Results Laboratory Tests Test 04/08/16 05:25 Sodium Level 149 MEQ/L Potassium Level 3.3 MEQ/L Chloride Level 118 MEQ/L Carbon Dioxide Level 20.4 MEQ/L Anion Gap 11 MEQ/L Blood Urea Nitrogen 3 MG/DL Creatinine 0.91 MG/DL Estimat Glomerular Filtration 75 ML/MIN Rate Random Glucose 96 MG/DL Calcium Level 7.3 MG/DL Protein Corrected Calcium 9.1 MG/DL Total Protein 4.0 GM/DL Physical Exam General General Appearance: No Acute Distress, Malnourished Eyes Eye Exam: Pupils Equal, Pupils Reactive, Sclera White Ears & Nose Ears & Nose Exam: Nasal Mucosa [place] Throat Throat Exam: Oral Mucosa [place] & Moist Neck Neck Exam: Neck Supple, Trachea Midline Pulmonary Resp Exam: No Distress, Decreased Bases Cardiology CV Exam: Regular Gastrointestinal/Abdomen GI Exam: Soft, Non-Tender, Bowel Sounds Present, Non-Distended Musculoskeletal MS Exam: Joints Intact, Atrophy Integumentary Skin Exam: Warm, Dry Extremeties Extremities Exam: Trace Edema Neurologic Neuro Exam: Alert, Awake, Speech Clear, Moving All Extremities, No Focal Deficits VTE Prophylaxis VTE Prophylaxis Meds: Heparin Assessment/Plan Problem List: (1) Sepsis (2) HIV (human immunodeficiency virus infection) (3) UTI (lower urinary tract infection) (4) Metabolic acidosis (5) Hypophosphatemia (6) Nephrolithiasis (7) Malnourished (8) Thrush (9) Leukocytosis (10) Bilateral kidney stones (11) Hypokalemia (12) Anemia (13) Acute renal insufficiency Assessment/Plan changed to D5W with bicarb at 75/hr per renal CO2 better 20.4 Low potassium will replace Increase sodium will monitor per nephrology, poss. Fanconi syndrome secondary Tenofovir. appreciate urology, ID, nephrology input continue with antibiotics, follow cultures UA + Ecoli continue with conservative management, may need lithotripsy as OP monitor HH, anemia, sec. CKD, low iron stores As per ID can be discharged per ID perspective BP stable continue with IVF Abd. xray noted, mild ileus asymptomatic poor nutritional status continue Megace Continue HAART Stool cdiff still pending WBC better OOB, PT eval Heparin for DVT prophylaxis Pepcid for GI prophylaxis Labs in am D/W RN D/W pt. Problem Qualifiers (1) Sepsis: Qualified Code: A41.51 - Sepsis due to Escherichia coli (2) Leukocytosis: Qualified Code: D72.829 - Leukocytosis, unspecified type (3) Anemia: Shayy Pelayo MD Apr 08, 2016 11:18
[2016-04-08] MEDS ORDERED: SODIUM CHLORID 0.9% 500 ML INJ 500 ML IV ONE (15:00)
[2016-04-08] MEDS: SODIUM CHLOR 0.9% 1000 ML INJ 1,000 ML IV SCH (16:45)
[2016-04-08 16:59] LABS: BLOOD, URINE SMALL (NEG); GLUCOSE,URINE 70 mg/dL (NEG); KETONE, URINE NEG (NEG); NITRITE,URINE NEG (NEG); SQUAMOUS EPITHELIAL CELL URINE <1 /hpf (0-5); URINE COLOR LIGHT-YELLOW (YELLW/STRAW)
[2016-04-08 17:00] LABS: COMMENT (UR) CULTURE INDICATED; CULTURE IF INDICATED CULTURE INDICATED
[2016-04-08] MEDS: ATORVASTATIN 20 MG TAB PO SCH (22:14)
[2016-04-08] MEDS: LATANOPROST 0.005% OPHT SOLN 2.5 ML BTL EACH EYE SCH (22:21)
[2016-04-09] VITALS (7 sets, daily range): BP systolic 75–109; BP diastolic 48–62; PULSE 81–98; RESP 16–19; TEMP 97.7–99.4; O2SAT 96–100
[2016-04-09] MEDS: SODIUM CHLOR 0.9% 1000 ML INJ 1,000 ML IV SCH ×2 (04:02→11:30)
[2016-04-09 06:15] LABS: AUTOMATED NEUTROPHIL # 2.3 TH/MM3 (1.8-7.7); BASOPHIL % 0.4 % (0.0-2.0); EOSINOPHIL % 0.5 % (0.0-4.0); HEMO FLAGS DIFF FINAL; LYMPH % 49.4 % (9.0-44.0); LYMPHOCYTE # 2.7 TH/MM3 (1.0-4.8); MEAN CELL VOLUME 91.6 FL (80.0-100.0); MEAN CORPUSCULAR HEMOGLOBIN 29.9 PG (27.0-34.0); MEAN CORPUSCULAR HGB CONC 32.7 % (32.0-36.0); MONO % 7.7 % (0.0-8.0); PLATELET COUNT 303 TH/MM3 (150-450); RED BLOOD COUNT 2.73 MIL/MM3 (4.00-5.30); RED CELL DISTRIBUTION WIDTH 15.9 % (11.6-17.2); WHITE BLOOD COUNT 5.5 TH/MM3 (4.0-11.0)
[2016-04-09 06:54] LABS: BICARBONATE 19.9 MEQ/L (21.0-32.0); POTASSIUM 3.7 MEQ/L (3.5-5.1)
[2016-04-09 07:11] LABS: CALCIUM-PROTEIN CORRECTED 8.7 MG/DL (8.5-10.1)
[2016-04-09] MEDS: LEVOTHYROXINE SODIUM 50 MCG TAB PO SCH (07:33)
[2016-04-09] MEDS: ALENDRONATE SODIUM 70 MG TAB PO SCH (07:33)
[2016-04-09] MEDS ORDERED: SODIUM CHLORID 0.9% 500 ML INJ 500 ML IV ONE (08:00)
[2016-04-09] MEDS: EMTRICITABINE/TENOFOVIR 200 MG/300 MG TAB PO SCH (09:00)
[2016-04-09] MEDS: SODIUM CHLORIDE 0.9% FLUSH 5 ML FLUSH FLUSH SCH ×2 (09:00→21:00)
[2016-04-09] MEDS: POLYETHYLENE GLYCOL 17 GM PKG PO SCH (09:00)
[2016-04-09] MEDS: DARUNAVIR 800 MG TAB PO SCH (09:00)
[2016-04-09] MEDS: FENOFIBRATE 145 MG TAB PO SCH (09:00)
[2016-04-09] MEDS: DOCUSATE SODIUM 50 MG/SENNA 8.6 MG TAB PO SCH ×4 (09:00→17:31)
[2016-04-09] MEDS: MEGESTROL ACETATE SUSP 400 MG/10 ML CUP PO SCH (09:00)
[2016-04-09] MEDS: CYANOCOBALAMIN 1,000 MCG TAB PO SCH ×2 (09:00→21:00)
[2016-04-09] MEDS: CALCIUM CARBONATE 500 MG CHEWABLE TAB CHEW SCH ×2 (09:00→21:16)
[2016-04-09] MEDS: GABAPENTIN 300 MG CAP PO SCH ×2 (09:00→21:00)
[2016-04-09] MEDS: DOLUTEGRAVIR SODIUM 50 MG TAB PO SCH (09:00)
[2016-04-09] MEDS: CALCIUM/VITAMIN D 250 MG/125 U TAB PO SCH ×2 (09:00→21:16)
[2016-04-09] MEDS: HEPARIN SODIUM - SQ 10,000 UNITS/ML VIAL SQ SCH ×2 (09:00→21:16)
[2016-04-09] MEDS: SERTRALINE HCL 50 MG TAB PO SCH (09:00)
[2016-04-09] MEDS: ASCORBIC ACID 500 MG TAB PO SCH (09:00)
[2016-04-09] MEDS: FAMOTIDINE 20 MG TAB PO SCH ×2 (09:00→21:16)
[2016-04-09] MEDS: FERROUS SULFATE 325 MG (65 MG ELEMENTAL IRON) TAB PO SCH ×4 (09:00→17:31)
[2016-04-09] MEDS: CEFUROXIME AXETIL 500 MG TAB PO SCH ×2 (09:00→21:16)
[2016-04-09] MEDS: ACETAMINOPHEN/HYDROcodone 325 MG/5 MG TAB PO SCH ×3 (09:00→17:29)
[2016-04-09] MEDS: POTASSIUM CL 40 MEQ/30 ML LIQ UDC PO SCH (09:00)
[2016-04-09] MEDS: MULTIVITAMINS/MINERALS THERAPEUTIC TAB PO SCH (09:00)
--- NOTE | 2016-04-09 10:01 | HHI.PR ---
Subjective Interval History pt is feeling weak and tired no other complaint alert oriented to place and and person but doesnt know president and yr and month ROS for 12 point system is otherwise unremarkable Vitals/Results Intake & Output 04/08/16 04/08/16 04/09/16 15:00 23:00 07:00 Intake Total 1513 ml 1385 ml 923 ml Balance 1513 ml 1385 ml 923 ml Intake Oral 930 ml 120 ml 60 ml IV Total 583 ml 1265 ml 863 ml # Voids 7 4 4 # Bowel Movements 0 0 0 Vital Signs Vital Signs Date Time Temp Pulse Resp B/P Pulse Ox O2 Delivery O2 Flow Rate FiO2 04/09/16 08:20 105/50 04/09/16 08:00 99.0 98 17 92/52 100 92/52 04/09/16 04:00 99.4 88 18 75/48 99 04/09/16 00:00 99.2 90 18 94/57 100 04/08/16 20:00 98.8 89 20 96/58 100 04/08/16 16:00 98.7 88 17 84/56 100 04/08/16 13:02 82/54 04/08/16 12:00 98.6 98 16 78/50 100 CBC/BMP: 04/09/16 0544 04/09/16 0544 Lab Results Laboratory Tests Test 04/08/16 04/09/16 16:15 05:44 Urine Color LIGHT-YELLOW Urine Turbidity CLEAR Urine pH 8.0 Urine Specific [place] 1.005 Urine Protein TRACE mg/dL Urine Glucose (UA) 70 mg/dL Urine Ketones NEG mg/dL Urine Occult Blood SMALL Urine Nitrite NEG Urine Bilirubin NEG Urine Urobilinogen LESS THAN 2.0 MG/DL Urine Leukocyte Esterase LARGE Urine RBC LESS THAN 1 /hpf Urine WBC 11 /hpf Urine Squamous Epithelial <1 /hpf Cells Microscopic Urinalysis Comment CULTURE INDICATED Urine Random Creatinine LESS THAN 13 MG/DL Urine Random Total Protein 40 MG/DL Urine Random Sodium 51 MEQ/L Urine Random Potassium 20 MEQ/L Urine Random Chloride 34 MEQ/L Urine Protein/Creatinine Ratio 3.00 White Blood Count 5.5 TH/MM3 Red Blood Count 2.73 MIL/MM3 Hemoglobin 8.2 GM/DL Hematocrit 25.0 % Mean Corpuscular Volume 91.6 FL Mean Corpuscular Hemoglobin 29.9 PG Mean Corpuscular Hemoglobin 32.7 % Concent Red Cell Distribution Width 15.9 % Platelet Count 303 TH/MM3 Mean Platelet Volume 9.0 FL Neutrophils (%) (Auto) 42.0 % Lymphocytes (%) (Auto) 49.4 % Monocytes (%) (Auto) 7.7 % Eosinophils (%) (Auto) 0.5 % Basophils (%) (Auto) 0.4 % Neutrophils # (Auto) 2.3 TH/MM3 Lymphocytes # (Auto) 2.7 TH/MM3 Monocytes # (Auto) 0.4 TH/MM3 Eosinophils # (Auto) 0.0 TH/MM3 Basophils # (Auto) 0.0 TH/MM3 CBC Comment DIFF FINAL Differential Comment Sodium Level 148 MEQ/L Potassium Level 3.7 MEQ/L Chloride Level 123 MEQ/L Carbon Dioxide Level 19.9 MEQ/L Anion Gap 5 MEQ/L Blood Urea Nitrogen 2 MG/DL Creatinine 0.79 MG/DL Estimat Glomerular Filtration 88 ML/MIN Rate Random Glucose 82 MG/DL Calcium Level 7.1 MG/DL Protein Corrected Calcium 8.7 MG/DL Total Protein 4.2 GM/DL Microbiology Microbiology 04/08/16 Urine Culture, Received Pending Physical Exam General General Appearance: No Acute Distress, Malnourished Appearance Remarks weak and ill looking Eyes Eye Exam: Pupils Equal, Pupils Reactive, Sclera White Ears & Nose Ears & Nose Exam: Nasal Mucosa [place] Throat Throat Exam: Oral Mucosa [place] & Moist Neck Neck Exam: Neck Supple, Trachea Midline Pulmonary Resp Exam: No Distress, Decreased Bases Cardiology CV Exam: Regular Gastrointestinal/Abdomen GI Exam: Soft, Non-Tender, Bowel Sounds Present, Non-Distended Musculoskeletal MS Exam: Joints Intact, Atrophy Integumentary Skin Exam: Warm, Dry Extremeties Extremities Exam: Trace Edema Neurologic Neuro Exam: Alert, Awake, Speech Clear, Moving All Extremities, No Focal Deficits VTE Prophylaxis VTE Prophylaxis Meds: Heparin Assessment/Plan Problem List: (1) Sepsis (2) HIV (human immunodeficiency virus infection) (3) UTI (lower urinary tract infection) (4) Metabolic acidosis (5) Hypophosphatemia (6) Nephrolithiasis (7) Malnourished (8) Thrush (9) Leukocytosis (10) Bilateral kidney stones (11) Hypokalemia (12) Anemia (13) Acute renal insufficiency Assessment/Plan has low bp bolus of saline given, Bp improved changed to Ns at 100 cc / hr CO2 better 19.9 better potassium will monitor Increase sodium will monitor stable H&H per nephrology, poss. Fanconi syndrome secondary Tenofovir. appreciate urology, ID, nephrology input continue with antibiotics, follow cultures UA + Ecoli. Urine culture from April 08 ending Urology input appreciated continue with conservative management, may need lithotripsy as OP Labs for tomorrow continue with IVF Plan for x-ray chest and abdomen poor nutritional status continue Megace Continue HAART. Patient refusing consult Stool cdiff still pending WBC better OOB, PT eval Heparin for DVT prophylaxis Pepcid for GI prophylaxis Labs in am Discussed with RN D/W RN D/W pt. Problem Qualifiers (1) Sepsis: Qualified Code: A41.51 - Sepsis due to Escherichia coli (2) Leukocytosis: Qualified Code: D72.829 - Leukocytosis, unspecified type (3) Anemia: Shayy Pelayo MD Apr 09, 2016 10:01
[2016-04-09 10:15] LABS: ALBUMIN SPE 2.2 GM/DL (3.50-5.00); ALPHA 1 GLOBULIN 0.27 GM/DL (0.11-0.29); ALPHA 2 GLOBULIN 0.62 GM/DL (0.22-1.00); BETA GLOBULINS (SPE) 0.5 GM/DL (0.53-1.03)
--- NOTE | 2016-04-09 11:12 | RADRPT ---
EXAM DATE/TIME: 04/09/2016 10:18 [facility] COMPARISON: CHEST SINGLE AP, April 02, 2016, 16:27. INDICATIONS: Sepsis. MEDICAL HISTORY: Hypercholesterolemia. Hypertension. Herpes. HIV. AIDS. Ectopic . GERD. Hypothyroidism. SURGICAL HISTORY: Right abdominal cyst removed. ENCOUNTER: Subsequent ACUITY: 4 - 6 days PAIN SCORE: 0/10 LOCATION: Bilateral chest FINDINGS: Again seen is degenerative changes both right and left shoulders. The right lung is clear. There is very minimal fluid in the left lung. Heart and pulmonary vascularity are normal. CONCLUSION: Minimal fluid in the left base, otherwise negative. Leo Iverson MD FACR on April 09, 2016 at 10:33 Board Certified Radiologist. This report was verified electronically.
--- NOTE | 2016-04-09 12:31 | HHI.NPPN ---
Subjective History of Present Illness The patient is a 65 yo AA female who presented to the hospital on 04/02 with complaints of abdominal pain, anorexia, nausea, vomiting. 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 Urology has seen the patient and as her symptoms have been improving, they have chosen a conservative approach for the present with consideration of Lithotripsy as outpatient. Repeat renal US shows resolution of hydronephrosis. She initially had an acute renal decline with SCr at 1.45 that has improved to 0.96 at consult. Her PMHx includes HIV for which she sees a local ID doctor (but cannot recall name) and mentions she has had a recent change in medications, HTN, HLD, Hypothyroidism, GERd, HSV-2. Note the patient is a poor historian. Denies any known previous hx of CKD. Does mention she has had multiple issues with kidney stones in the past and says she has seen Dr. Arambula. Has numerous chemistry imbalances with hypokalemia, acidosis, hypophosphatemia, and initially hyponatremia. Interval History Patient had no verbal complaints. Review of Systems General Constitutional: Fatigue Objective Data Data 04/08/16 04/09/16 19:00 07:00 Intake Total 2012 ml 1808 ml Balance 2012 ml 1808 ml Intake Oral 930 ml 180 ml IV Total 1083 ml 1628 ml # Voids 9 6 # Bowel Movements 0 0 Vital Signs Date Time Temp Pulse Resp B/P Pulse Ox O2 Delivery O2 Flow Rate FiO2 04/09/16 08:20 105/50 04/09/16 08:00 99.0 98 17 92/52 100 92/52 04/09/16 04:00 99.4 88 18 75/48 99 04/09/16 00:00 99.2 90 18 94/57 100 04/08/16 20:00 98.8 89 20 96/58 100 04/08/16 16:00 98.7 88 17 84/56 100 04/08/16 13:02 82/54 -: 04/09/16 0544 04/09/16 0544 Microbiology 04/08/16 Urine Culture, Received Pending Physical Exam General Appearance: No Acute Distress, Malnourished Eyes Eye Exam: Pupils Equal, Pupils Reactive, Sclera White Ears & Nose Ears & Nose Exam: Nasal Mucosa [place] Throat Throat Exam: Oral Mucosa [place] & Moist Neck Neck Exam: Neck Supple, Trachea Midline Pulmonary Resp Exam: No Distress, Decreased Bases Cardiology CV Exam: Regular Gastrointestinal/Abdomen GI Exam: Soft, Non-Tender, Bowel Sounds Present, Non-Distended Musculoskeletal MS Exam: Joints Intact, Atrophy Integumentary Skin Exam: Warm, Dry Extremeties Extremities Exam: Trace Edema Neurologic Neuro Exam: Alert, Awake, Speech Clear, Moving All Extremities, No Focal Deficits Assessment/Plan Problem List: (1) Acute renal insufficiency Plan: Resolved Likely related to obstructive uropathy and volume depletion given poor oral intake. We will monitor. Discontinue IV saline in view of hypernatremia. (2) HIV (human immunodeficiency virus infection) Plan: Mgmt as per ID (3) Hypokalemia Plan: Despite urine potassium level slightly higher than it should be. Suggesting that there is some renal wasting of potassium. Her multiple electrolyte abnormalities is likely related to her HIV and medications. Can be exacerbated by her poor nutritional state. She is cachetic and has failure to thrive. (4) Metabolic acidosis Plan: Urine pH is now above 7.5 with administration of sodium bicarbonate. This suggests wasting of bicarbonate in the urine. 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 24 urine for phosphate is still pending also but suspect hyperphosphatemia may be secondary to a combination of poor nutritional intake and urinary phosphate wasting but this needs to be confirmed. I will defer to infectious disease but I am recommending consideration be given to modifying her HIV regimen if possible. (5) Hypophosphatemia Plan: As above. (6) UTI (lower urinary tract infection) Plan: Mgmt as per primary (7) Anemia Plan: Hg dropping Fe stores normal Awaiting SPEP (8) Nephrolithiasis Plan: Mgmt as per urology. Plan The exam, history, and the medical decision-making described in the above note were completed with the assistance of the MARY. I reviewed and agree with the findings presented. Problem Qualifiers (1) Anemia: Laxmi Reyes MD Apr 09, 2016 12:31
[2016-04-09] MEDS: SODIUM CHLOR 0.45% 1000 ML INJ 1,000 ML IV SCH (14:07)
[2016-04-09] MEDS: ATORVASTATIN 20 MG TAB PO SCH (21:16)
[2016-04-09] MEDS: LATANOPROST 0.005% OPHT SOLN 2.5 ML BTL EACH EYE SCH (21:17)
[2016-04-10] VITALS (15 sets, daily range): BP systolic 83–110; BP diastolic 51–61; PULSE 74–93; RESP 16–18; TEMP 97.1–99.5; O2SAT 95–100
[2016-04-10] MEDS: SODIUM CHLOR 0.45% 1000 ML INJ 1,000 ML IV SCH ×3 (00:51→13:34)
[2016-04-10 04:58] LABS: HEMATOCRIT 21.5 % (35.0-46.0); MEAN CELL VOLUME 91.5 FL (80.0-100.0); MEAN CORPUSCULAR HEMOGLOBIN 29.9 PG (27.0-34.0); MEAN CORPUSCULAR HGB CONC 32.6 % (32.0-36.0); PLATELET COUNT 258 TH/MM3 (150-450); RED BLOOD COUNT 2.35 MIL/MM3 (4.00-5.30); RED CELL DISTRIBUTION WIDTH 15.7 % (11.6-17.2); REVIEW FLAG FINAL; WHITE BLOOD COUNT 5.8 TH/MM3 (4.0-11.0)
[2016-04-10 05:32] LABS: BICARBONATE 18.3 MEQ/L (21.0-32.0)
[2016-04-10] MEDS: LEVOTHYROXINE SODIUM 50 MCG TAB PO SCH (05:52)
[2016-04-10 05:53] LABS: CALCIUM-PROTEIN CORRECTED 8.7 MG/DL (8.5-10.1)
[2016-04-10] MEDS: CALCIUM CARBONATE 500 MG CHEWABLE TAB CHEW SCH ×2 (08:05→20:58)
[2016-04-10] MEDS: POLYETHYLENE GLYCOL 17 GM PKG PO SCH (08:05)
[2016-04-10] MEDS: POTASSIUM CL 40 MEQ/30 ML LIQ UDC PO SCH (08:07)
[2016-04-10] MEDS: SODIUM CHLORIDE 0.9% FLUSH 5 ML FLUSH FLUSH SCH ×2 (08:07→20:47)
[2016-04-10] MEDS: HEPARIN SODIUM - SQ 10,000 UNITS/ML VIAL SQ SCH ×2 (08:10→20:59)
[2016-04-10] MEDS: CYANOCOBALAMIN 1,000 MCG TAB PO SCH ×2 (08:10→20:56)
[2016-04-10] MEDS: MULTIVITAMINS/MINERALS THERAPEUTIC TAB PO SCH (08:10)
[2016-04-10] MEDS: EMTRICITABINE/TENOFOVIR 200 MG/300 MG TAB PO SCH (08:10)
[2016-04-10] MEDS: DOLUTEGRAVIR SODIUM 50 MG TAB PO SCH ×2 (08:10→09:00)
[2016-04-10] MEDS: FENOFIBRATE 145 MG TAB PO SCH (08:10)
[2016-04-10] MEDS: ASCORBIC ACID 500 MG TAB PO SCH (08:10)
[2016-04-10] MEDS: SERTRALINE HCL 50 MG TAB PO SCH (08:10)
[2016-04-10] MEDS: DARUNAVIR 800 MG TAB PO SCH ×2 (08:11→09:00)
[2016-04-10] MEDS: CALCIUM/VITAMIN D 250 MG/125 U TAB PO SCH ×2 (08:11→20:58)
[2016-04-10] MEDS: DOCUSATE SODIUM 50 MG/SENNA 8.6 MG TAB PO SCH ×3 (08:11→18:00)
[2016-04-10] MEDS: FAMOTIDINE 20 MG TAB PO SCH ×2 (08:11→20:55)
[2016-04-10] MEDS: FERROUS SULFATE 325 MG (65 MG ELEMENTAL IRON) TAB PO SCH ×3 (08:12→18:00)
[2016-04-10] MEDS: MEGESTROL ACETATE SUSP 400 MG/10 ML CUP PO SCH (08:12)
[2016-04-10] MEDS: CEFUROXIME AXETIL 500 MG TAB PO SCH ×2 (08:12→20:46)
[2016-04-10] MEDS: GABAPENTIN 300 MG CAP PO SCH ×2 (08:12→20:46)
[2016-04-10] MEDS: ACETAMINOPHEN/HYDROcodone 325 MG/5 MG TAB PO SCH ×3 (08:19→17:09)
--- NOTE | 2016-04-10 10:32 | HHI.NPPN ---
Subjective History of Present Illness The patient is a 65 yo AA female who presented to the hospital on 04/02 with complaints of abdominal pain, anorexia, nausea, vomiting. 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 Urology has seen the patient and as her symptoms have been improving, they have chosen a conservative approach for the present with consideration of Lithotripsy as outpatient. Repeat renal US shows resolution of hydronephrosis. She initially had an acute renal decline with SCr at 1.45 that has improved to 0.96 at consult. Her PMHx includes HIV for which she sees a local ID doctor (but cannot recall name) and mentions she has had a recent change in medications, HTN, HLD, Hypothyroidism, GERd, HSV-2. Note the patient is a poor historian. Denies any known previous hx of CKD. Does mention she has had multiple issues with kidney stones in the past and says she has seen Dr. Arambula. Has numerous chemistry imbalances with hypokalemia, acidosis, hypophosphatemia, and initially hyponatremia. Interval History Pt says she is not feeling well today. When asked what that meant, she did not elaborate. Noted that she has refused several of her medications today. Review of Systems General Constitutional: Fatigue Objective Data Data 04/09/16 04/10/16 19:00 07:00 Intake Total 1284 ml 2103 ml Output Total 420 ml 1800 ml Balance 864 ml 303 ml Intake Oral 380 ml 660 ml IV Total 904 ml 1443 ml Output Urine Total 420 ml 1800 ml # Bowel Movements 0 0 Vital Signs Date Time Temp Pulse Resp B/P Pulse Ox O2 Delivery O2 Flow Rate FiO2 04/10/16 08:00 99.5 81 17 99/57 100 04/10/16 04:00 98.4 93 16 110/55 99 04/10/16 00:00 97.1 86 16 102/55 95 04/09/16 20:00 97.7 81 16 105/57 96 04/09/16 20:00 93 04/09/16 16:00 98.3 95 19 109/58 100 04/09/16 12:00 98.7 86 17 103/62 97 -: 04/10/16 0432 04/10/16 0432 Medication Review Current Medications Medications (Trade) Dose Ordered Sig/Rodolfo Route Start Time Stop Time Status Last Admin (NS Flush) 2 ml UNSCH PRN FLUSH 04/02/16 20:30 (NS Flush) 2 ml BID FLUSH 04/02/16 21:00 04/07/16 10:04 (Tylenol) 650 mg Q4H PRN PO 04/02/16 20:30 (Zofran Inj) 4 mg Q6H PRN IVP 04/02/16 20:30 04/08/16 09:56 (Dulcolax Supp) 10 mg DAILY PRN ME 04/02/16 20:30 (Senokot) 17.2 mg Q12H PRN PO 04/02/16 20:30 (Heparin Inj) 5,000 units Q12H SQ 04/02/16 21:00 04/09/16 21:16 (Narcan Inj) 0.4 mg UNSCH PRN IV 04/02/16 20:30 (Pepcid) 10 mg BID PO 04/02/16 21:00 04/09/16 21:16 (Tylenol) 650 mg Q4HR PRN PO 04/03/16 07:30 (Fosamax) 70 mg Q7D PO 04/09/16 07:00 04/09/16 07:33 (Mag-Al Plus Susp Liq) 30 ml Q4HR PRN PO 04/03/16 07:30 (Vitamin C) 1,000 mg DAILY PO 04/03/16 09:00 04/08/16 09:45 (Lipitor) 20 mg HS PO 04/03/16 21:00 04/09/16 21:16 (Dulcolax Supp) 10 mg DAILY PRN RECTAL 04/03/16 07:30 (Tums Chew) 500 mg Q12HR CHEW 04/03/16 09:00 04/10/16 08:05 (Oscal-D 250-125) 500 mg BID PO 04/03/16 09:00 04/09/16 21:16 (Tricor) 145 mg DAILY PO 04/03/16 09:00 04/08/16 09:42 (Ferrous Sulfate) 325 mg TID PO 04/03/16 09:00 04/08/16 17:11 (Neurontin) 300 mg Q12HR PO 04/03/16 21:00 04/08/16 22:14 ([place] 5-325 Mg) 1 tab TID PO 04/03/16 09:00 04/08/16 13:01 (Xalatan 0.005% Opth Soln) 1 drop HS EACH EYE 04/03/16 21:00 04/09/16 21:17 (Synthroid) 50 mcg DAILY@0600 PO 04/03/16 08:15 04/09/16 07:33 (Imodium) 2 mg BID PRN PO 04/03/16 07:30 (Milk Of Magnesia Liq) 30 ml Q4HR PRN PO 04/03/16 07:30 (Megace Liq) 400 mg DAILY PO 04/03/16 09:00 04/07/16 10:57 (Theragran M Tab) 1 tab DAILY PO 04/03/16 09:00 04/08/16 09:46 (Miralax) 17 gm DAILY PO 04/03/16 09:00 04/10/16 08:05 (Nikia-Colace) 1 tab TID PO 04/03/16 09:00 04/08/16 17:11 (Zoloft) 25 mg DAILY PO 04/03/16 09:00 04/07/16 10:12 (Fleets Enema (Adult)) 118 ml DAILY PRN RECTAL 04/03/16 07:30 (Vitamin B12) 1,000 mcg BID PO 04/03/16 09:00 04/08/16 22:14 Miscellaneous 1 ea 1 ea UNSCH PRN OTHER 04/03/16 08:30 (NS 250 ml Inj) 250 ml @ 0 mls/hr BOLUS IV 04/04/16 09:00 04/04/16 09:09 (Truvada 200-300 Mg) 1 tab DAILY PO 04/04/16 09:15 04/08/16 10:21 (Prezista) 800 mg DAILY PO 04/04/16 09:15 04/08/16 10:21 (KCl 40 Meq/30 ml Liq) 40 meq DAILY PO 04/04/16 11:00 04/10/16 08:07 (Mag-Al Plus Susp Liq) 30 ml Q6H PRN PO 04/04/16 15:30 Cefuroxime Axetil 500 mg 500 mg Q12HR PO 04/05/16 13:00 04/19/16 12:59 04/09/16 21:16 (02/19 NS 1000 ml Inj) 1,000 ml @ 80 mls/hr [id number] IV 04/09/16 12:30 04/10/16 00:51 Physical Exam General Appearance: No Acute Distress, Malnourished Eyes Eye Exam: Pupils Equal, Pupils Reactive, Sclera White Ears & Nose Ears & Nose Exam: Nasal Mucosa [place] Throat Throat Exam: Oral Mucosa [place] & Moist Neck Neck Exam: Neck Supple, Trachea Midline Pulmonary Resp Exam: No Distress, Decreased Bases Cardiology CV Exam: Regular Gastrointestinal/Abdomen GI Exam: Soft, Non-Tender, Bowel Sounds Present, Non-Distended Musculoskeletal MS Exam: Joints Intact, Atrophy Integumentary Skin Exam: Warm, Dry Extremeties Extremities Exam: No Edema Neurologic Neuro Exam: Alert, Awake, Speech Clear, Moving All Extremities, No Focal Deficits Assessment/Plan Problem List: (1) Acute renal insufficiency Plan: Resolved Likely related to obstructive uropathy and volume depletion given poor oral intake. We will monitor. Discontinue IV saline in view of hypernatremia. (2) HIV (human immunodeficiency virus infection) Plan: Mgmt as per ID (3) Hypokalemia Plan: Urine potassium level slightly higher than it should be suggesting that there is some renal wasting of potassium. Her multiple electrolyte abnormalities is likely related to her HIV and medications. Can be exacerbated by her poor nutritional state. She is cachetic and has failure to thrive. (4) Metabolic acidosis Plan: Urine pH is now above 7.5 with administration of sodium bicarbonate. This suggests wasting of bicarbonate in the urine. 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 24 urine for phosphate is still pending also but suspect hyperphosphatemia may be secondary to a combination of poor nutritional intake and urinary phosphate wasting but this needs to be confirmed. I will defer to infectious disease but I am recommending consideration be given to modifying her HIV regimen if possible. Appears the patient is refusing ID consultation (5) Hypophosphatemia Plan: As above. (6) UTI (lower urinary tract infection) Plan: Mgmt as per primary (7) Anemia Plan: Hg dropping Fe stores normal SPEP no M-spike. Defer to primary (8) Nephrolithiasis Plan: Mgmt as per urology. Problem Qualifiers (1) Anemia: Taylor,Linda Loraine PA Apr 10, 2016 10:32
[2016-04-10] MEDS ORDERED: POTASSIUM CL 40 MEQ/30 ML LIQ UDC PO ONE ×3 (10:45→19:30)
[2016-04-10] MEDS ORDERED: SODIUM CHLOR 0.45% IV ONE (12:45)
[2016-04-10] MEDS ORDERED: SODIUM CHLOR 0.9% IV ONE (13:00)
[2016-04-10] MEDS ORDERED: POTASSIUM PHOSPHATE IV ONE (13:00)
--- NOTE | 2016-04-10 14:58 | HHI.PR ---
Subjective Subjective Remarks No facial grimace Mumbling words but hard to understand at times Asking for cranberry juice Alert today In bed Pulse in the 90s Pale mucous membranes (Kinza Nieto) Review of Systems Constitutional Constitutional: Fatigue, Weakness (questionable failure to thrive) Constitutional Remarks Limited 10 point ROS done. Sometimes conversation in words are understood, sometimes mumbling (Kinza Nieto) GI/Abdomen GI/Abdominal Exam: Positive Bowel Movement GI/Abdomen Remarks Checking Hemoccult, severe anemia today (Kinza Nieto) Musculoskeletal MS: Weakness (Kinza Nieto) Psychiatric Psychiatric: Anxiety (at times) (Kinza Nieto) Allergic/Immunologic Allergic/Immunologic/Remarks HIV, chronic renal disease (Kinza Nieto) Vitals/Results Intake & Output 04/09/16 04/09/16 04/10/16 15:00 23:00 07:00 Intake Total 1284 ml 1163 ml 940 ml Output Total 420 ml 800 ml 1000 ml Balance 864 ml 363 ml -60 ml Intake Oral 380 ml 420 ml 240 ml IV Total 904 ml 743 ml 700 ml Output Urine Total 420 ml 800 ml 1000 ml # Bowel Movements 0 0 0 Vital Signs Vital Signs Date Time Temp Pulse Resp B/P Pulse Ox O2 Delivery O2 Flow Rate FiO2 04/10/16 14:07 104/54 04/10/16 13:31 83/51 04/10/16 12:00 98.8 84 16 84/52 100 04/10/16 08:00 99.5 81 17 99/57 100 04/10/16 04:00 98.4 93 16 110/55 99 04/10/16 00:00 97.1 86 16 102/55 95 04/09/16 20:00 97.7 81 16 105/57 96 04/09/16 20:00 93 04/09/16 16:00 98.3 95 19 109/58 100 (Kinza Nieto) CBC/BMP: 04/10/16 0432 04/10/16 0432 Lab Results Laboratory Tests Test 04/10/16 04:32 White Blood Count 5.8 TH/MM3 Red Blood Count 2.35 MIL/MM3 Hemoglobin 7.0 GM/DL Hematocrit 21.5 % Mean Corpuscular Volume 91.5 FL Mean Corpuscular Hemoglobin 29.9 PG Mean Corpuscular Hemoglobin 32.6 % Concent Red Cell Distribution Width 15.7 % Platelet Count 258 TH/MM3 Mean Platelet Volume 8.4 FL Sodium Level 148 MEQ/L Potassium Level 3.0 MEQ/L Chloride Level 123 MEQ/L Carbon Dioxide Level 18.3 MEQ/L Anion Gap 7 MEQ/L Blood Urea Nitrogen 3 MG/DL Creatinine 0.76 MG/DL Estimat Glomerular Filtration 92 ML/MIN Rate Random Glucose 81 MG/DL Calcium Level 6.8 MG/DL Protein Corrected Calcium 8.7 MG/DL Total Protein 3.7 GM/DL Imaging Remarks Last Impressions Chest X-Ray 04/09/16 0000 Signed Impressions: Service Date/Time: Saturday, April 09, 2016 10:18 - CONCLUSION: Minimal fluid in the left base, otherwise negative. Leo Iverson MD FACR Renal Ultrasound 04/05/16 0600 Signed Impressions: Service Date/Time: March 07:52 - CONCLUSION: 1. Multiple nonobstructing calculi in the left renal collecting system, the largest measuring approximately 1.6 cm in diameter. 2. Benign-appearing renal cortical cysts in the right kidney. 3. Punctate echogenic foci in the cortex of the right kidney the junction of the upper and midpole is unchanged without shadowing and may represent a foci of renal cortical fat. 4. Increased echogenicity of the renal cortices symmetrically and bilaterally suggesting some degree of medical renal disease. 5. No significant change from prior. Manuel López MD Abdomen X-Ray 04/05/16 0600 Signed Impressions: Service Date/Time: March 05:54 - CONCLUSION: 1. Findings of small bowel ileus. Followup examination is recommended if clinically indicated. 2. Multiple left renal stones Devyn Rios MD Abdomen/Pelvis CT 04/02/16 1554 Signed Impressions: Service Date/Time: Saturday, April 02, 2016 18:41 - CONCLUSION: 1. Nonobstructing renal stones being much more numerous and larger on the left side. The central calcifications in the left kidney resemble a staghorn calculus. 2. Mild dilatation of the right collecting system and right ureter. This suggests there may have been a passed stone. A stone in the right ureter is not seen. 3. Destructive changes at the femoral heads bilaterally. These changes appear chronic. These changes could be secondary to underlying process such as prior avascular necrosis, prior trauma or prior inflammatory change including infection or inflammatory arthritis. Marquis Galo MD Current Medications Active Medications Potassium Chloride 20 meq 20 meq ONCE ONCE PO; Start 04/10/16 at 10:45; Stop at 10:46; Status Cancel Potassium Phosphate 26 mmol/ Sodium Chloride 258.6667 ml @ 41.667 m... ONCE ONCE IV Last administered on 04/10/16 14:00; Admin Dose 41.667 MLS/HR; Start at 13:00; Stop 04/10/16 at 19:12 Potassium Chloride (KCl 40 Meq/30 ml Liq) 40 meq ONCE ONCE PO; Start 04/10/16 at 15:00; Stop 04/10/16 at 15:01; Status UNV Potassium Chloride (KCl 40 Meq/30 ml Liq) 40 meq ONCE ONCE PO; Start 04/10/16 at 20:00; Stop 04/10/16 at 20:01; Status UNV Sodium Chloride 250 ml @ 0 mls/hr BOLUS ONCE IV Last administered on 04/10/16 13:34; Admin Dose 0 MLS/HR; Start 04/10/16 at 12:45; Stop 04/10/16 at 12:46; Status DC Sodium Chloride 1,000 ml @ 100 mls/hr Q10H IV Last administered on 04/10/16 13 :34; Admin Dose 100 MLS/HR; Start 04/10/16 at 13:00 Sodium Chloride (NS 250 ml Inj) 250 ml @ 15 mls/hr ONCE ONCE IV; Start at 14:45; Stop 04/11/16 at 07:24; Status UNV (Kinza Nieto) Physical Exam General General Appearance: No Acute Distress, Malnourished (Kinza Nieto) Eyes Eye Exam: Pupils Equal, Pupils Reactive, Sclera White (Kinza Nieto) Ears & Nose Ears & Nose Exam: Nasal Mucosa [place] (Gerson,Kinza M. [employer]) Throat Throat Exam: Oral Mucosa [place] & Moist (Kinza Nieto. [employer]) Neck Neck Exam: Neck Supple, Trachea Midline (Kinza Nieto. [employer]) Pulmonary Resp Exam: No Distress, Decreased Bases (Kinza Nieto. [employer]) Cardiology CV Exam: Regular (Kinza Nieto. [employer]) Gastrointestinal/Abdomen GI Exam: Soft, Non-Tender, Bowel Sounds Present (hypoactive bowel sounds), Non- Distended, Bowel Sounds Hypoactive GI Remarks We will complain of abdominal pain every once in a while. Taking very minimal by mouth fluids now. Diffuse in her medications. (Kinza iNeto. [employer]) Musculoskeletal MS Exam: Joints Intact, Atrophy (Kinza Nieto. [employer]) Integumentary Skin Exam: Warm, Dry Skin Remarks thin skin turgor, minimal recoil (Kinza Nieto. [employer]) Extremeties Extremities Exam: No Edema (Kinza Nieto. [employer]) Neurologic Neuro Exam: Alert, Awake, Speech Clear, Moving All Extremities, No Focal Deficits Neuro Remarks moans at times (Kinza Nieto. [employer]) VTE Prophylaxis VTE Prophylaxis Meds: Heparin (Kinza Nieto [employer]) Assessment/Plan Problem List: (1) Sepsis (2) HIV (human immunodeficiency virus infection) (3) UTI (lower urinary tract infection) (4) Metabolic acidosis (5) Hypophosphatemia (6) Nephrolithiasis (7) Malnourished (8) Thrush (9) Leukocytosis (10) Bilateral kidney stones (11) Hypokalemia (12) Anemia (13) Acute renal insufficiency Assessment/Plan has low bp bolus of saline given, Bp improved initially.and infusing at 100cc/ hr. but now 2, , now sodium increased, BP stable, decreased fluids to 30cc /hr CO2 better 19.9 Hypokalemia, Added KCL 40mez X 2 doses today, 4 hrs apart. BMP in am. Patient now refusing to take potassium by mouth. IV bolus K phos infusing. Anemia, > 1 gm drop in 24 hrs. 2 units of PRCs, with recheck 2 hrs after infusion. check stool hemoccult abd. xray , SBO. Liquids only, unless vomiting per nephrology, poss. Fanconi syndrome secondary Tenofovir. appreciate urology, ID, nephrology input continue with antibiotics, follow cultures UA + Ecoli. Urine culture from April 08 ending, patient has repeat u/A, which still is positive for UTI. Continue antibiotics Urology input appreciated continue with conservative management, may need lithotripsy as OP Labs for tomorrow poor nutritional status continue Megace Continue HAART. Patient refusing consult Takes a few sips of fluid every once in a while, but has been refusing food, and now shows a SBO. Placed on NPO , meds with small sips of liquid if she will take. Patient has also been refusing her medications. Called sister Darleen and spoke with her concerning her sister's condition, telephone #[phone]. She does not drive but is going to try to find someone who can bring her up to Hospital tomorrow. Asked her if she does arrive here to please call the [facility] hospitalist working, so we might talk to them for a game plan. Patient does speak some simple words, but it is questionable whether she is able to make her own decisions. This too may wax and wane with how she feels. We will support as needed. OOB, PT eval Heparin for DVT prophylaxis Pepcid for GI prophylaxis Discussed with RN D/W Dr. Ames D/W RN D/W pt. D/W CM, bed availalble when stable to discharge. Discussed Condition with: Patient, Relative (Sister Darleen) (Kinza Nieto) Assessment/Plan patient seen and examined reconsult ID to re evaluate HAART plan to transfuse today monitor BP recheck electrolytes in am hopefully sister can come tomorrow to have discussion re goals of care discussed with patient discussed with nursing staff discussed with Kinza ZHENG (Lilia Ames MD) Problem Qualifiers (1) Sepsis: Qualified Code: A41.51 - Sepsis due to Escherichia coli (2) Leukocytosis: Qualified Code: D72.829 - Leukocytosis, unspecified type (3) Anemia: Kinza Nieto Apr 10, 2016 14:58 Lilia Ames MD Apr 10, 2016 15:50
[2016-04-10] MEDS ORDERED: SODIUM CHLOR 0.9% 250 ML INJ 250 ML IV ONE (15:15)
--- NOTE | 2016-04-10 17:02 | RADRPT ---
EXAM DATE/TIME: 04/10/2016 16:41 [facility] COMPARISON: ABDOMEN KUB ONLY, April 05, 2016, 5:54. INDICATIONS : Ileus. MEDICAL HISTORY : Hypercholesterolemia. Hypertension. Herpes. HIV. AIDS. Ectopic . GERD. Hypothyroidism. SURGICAL HISTORY : Right abdominal cyst removed. ENCOUNTER: Subsequent ACUITY: 1 week PAIN SCORE: 5/10 LOCATION: Bilateral abdomen. FINDINGS: Supine view of the abdomen was performed. Gaseous distention of multiple bowel loops. No abnormal ma sses or organomegaly is seen. Several left-sided renal calculi largest measuring 1.4 cm. Hip dysplasi a bilaterally with deformities greater on the left. CONCLUSION: 1. Gaseous distention of multiple bowel loops which can be seen with ileus. 2. Left-sided renal calculi. Kwame Fountain MD on April 10, 2016 at 16:54 Board Certified Radiologist. This report was verified electronically.
[2016-04-10] MEDS: ATORVASTATIN 20 MG TAB PO SCH (20:56)
[2016-04-10] MEDS: LATANOPROST 0.005% OPHT SOLN 2.5 ML BTL EACH EYE SCH (21:00)
[2016-04-11 04:00] VITALS: BP 102/61; PULSE 78; RESP 16; TEMP 98.5; O2SAT 100
[2016-04-11] MEDS: LEVOTHYROXINE SODIUM 50 MCG TAB PO SCH (06:00)
[2016-04-11 06:11] LABS: BASOPHIL % 0.6 % (0.0-2.0); EOSINOPHIL % 0.5 % (0.0-4.0); HEMATOCRIT 35.2 % (35.0-46.0); HEMO FLAGS DIFF FINAL; LYMPH % 40.8 % (9.0-44.0); LYMPHOCYTE # 2.5 TH/MM3 (1.0-4.8); MEAN CELL VOLUME 88.2 FL (80.0-100.0); MONO % 8.6 % (0.0-8.0); NEUT % 49.5 % (16.0-70.0); PLATELET COUNT 279 TH/MM3 (150-450); RED BLOOD COUNT 3.99 MIL/MM3 (4.00-5.30); RED CELL DISTRIBUTION WIDTH 15.8 % (11.6-17.2); WHITE BLOOD COUNT 6.1 TH/MM3 (4.0-11.0)
[2016-04-11 06:43] LABS: BICARBONATE 14.6 MEQ/L (21.0-32.0); MAGNESIUM 1.7 MG/DL (1.5-2.5); POTASSIUM 3.2 MEQ/L (3.5-5.1)
[2016-04-11 08:00] VITALS: BP 120/59; PULSE 74; RESP 17; TEMP 98.2; O2SAT 98
[2016-04-11] MEDS: DOCUSATE SODIUM 50 MG/SENNA 8.6 MG TAB PO SCH ×3 (09:00→18:00)
[2016-04-11] MEDS: DARUNAVIR 800 MG TAB PO SCH (09:00)
[2016-04-11] MEDS: FENOFIBRATE 145 MG TAB PO SCH (09:00)
[2016-04-11] MEDS: FAMOTIDINE 20 MG TAB PO SCH ×2 (09:00→21:00)
[2016-04-11] MEDS: MEGESTROL ACETATE SUSP 400 MG/10 ML CUP PO SCH (09:00)
[2016-04-11] MEDS: EMTRICITABINE/TENOFOVIR 200 MG/300 MG TAB PO SCH (09:00)
[2016-04-11] MEDS: CALCIUM/VITAMIN D 250 MG/125 U TAB PO SCH ×2 (09:00→21:00)
[2016-04-11] MEDS: POLYETHYLENE GLYCOL 17 GM PKG PO SCH (09:00)
[2016-04-11] MEDS: GABAPENTIN 300 MG CAP PO SCH ×2 (09:00→21:00)
[2016-04-11] MEDS: CALCIUM CARBONATE 500 MG CHEWABLE TAB CHEW SCH ×2 (09:00→21:00)
[2016-04-11] MEDS: SODIUM CHLORIDE 0.9% FLUSH 5 ML FLUSH FLUSH SCH ×2 (09:00→21:00)
[2016-04-11] MEDS: ASCORBIC ACID 500 MG TAB PO SCH (09:00)
[2016-04-11] MEDS: CEFUROXIME AXETIL 500 MG TAB PO SCH ×2 (09:00→10:57)
[2016-04-11] MEDS: SERTRALINE HCL 50 MG TAB PO SCH ×2 (09:00→10:58)
[2016-04-11] MEDS: CYANOCOBALAMIN 1,000 MCG TAB PO SCH ×2 (09:00→21:00)
[2016-04-11] MEDS: DOLUTEGRAVIR SODIUM 50 MG TAB PO SCH (09:00)
[2016-04-11] MEDS: MULTIVITAMINS/MINERALS THERAPEUTIC TAB PO SCH (09:00)
[2016-04-11] MEDS: HEPARIN SODIUM - SQ 10,000 UNITS/ML VIAL SQ SCH ×2 (10:55→21:00)
[2016-04-11] MEDS: FERROUS SULFATE 325 MG (65 MG ELEMENTAL IRON) TAB PO SCH ×3 (10:56→18:33)
[2016-04-11] MEDS: ACETAMINOPHEN/HYDROcodone 325 MG/5 MG TAB PO SCH ×3 (10:56→18:33)
[2016-04-11 12:00] VITALS: BP 119/72; PULSE 77; RESP 18; TEMP 97.7; O2SAT 100
--- NOTE | 2016-04-11 14:05 | HHI.IDPN ---
Subjective Subjective Remarks Asked to reevaluate her HAART Notes reviewed D/W Dr Ames No fever Mental status ok Has been refusing her meds last 3 days PO intake poor Still with acidosis and electrolyte abnormalities Repeat renal US no hydro C/S reviewed UC with E coli CD4 572 Antibiotics Ceftin Lines PIV Past Medical History HIV, last CD4 count in November 22 Hypercholesterolemia Hypothyroidism Hypertension Genital herpes GERD Past Surgical History Cyst removed from the right side of the abdomen in 1993 Allergies: Coded Allergies: Do (Verified Allergy, Severe, 04/02/16) Objective . Vital Signs Date Time Temp Pulse Resp B/P Pulse Ox O2 Delivery O2 Flow Rate FiO2 04/11/16 12:00 97.7 77 18 119/72 100 04/11/16 08:00 98.2 74 17 120/59 98 04/11/16 04:00 98.5 78 16 102/61 100 04/10/16 23:45 98.4 75 16 99/59 100 04/10/16 23:44 98.4 75 18 99/59 100 04/10/16 21:00 98.6 74 18 102/61 100 04/10/16 20:35 98.3 80 18 95/55 100 04/10/16 20:35 80 18 95/55 100 04/10/16 20:00 98.8 91 16 98/55 99 04/10/16 20:00 86 04/10/16 18:18 98.0 81 16 104/58 100 04/10/16 18:09 17 84/52 100 04/10/16 18:07 99.5 77 16 84/52 100 04/10/16 16:00 98.8 82 18 83/51 99 04/10/16 14:07 104/54 04/10/16 04/10/16 04/11/16 15:00 23:00 07:00 Intake Total 891 ml 240 ml 700 ml Output Total 1450 ml 850 ml Balance -559 ml -610 ml 700 ml Intake Oral 120 ml 240 ml IV Total 771 ml 200 ml Packed Cells 500 ml Output Urine Total 1450 ml 850 ml # Voids 4 # Bowel Movements 0 1 0 . Laboratory Tests Test 04/10/16 04/11/16 04:32 05:30 White Blood Count 5.8 TH/MM3 6.1 TH/MM3 Red Blood Count 2.35 MIL/MM3 3.99 MIL/MM3 Hemoglobin 7.0 GM/DL 12.0 GM/DL Hematocrit 21.5 % 35.2 % Mean Corpuscular Volume 91.5 FL 88.2 FL Mean Corpuscular Hemoglobin 29.9 PG 30.0 PG Mean Corpuscular Hemoglobin 32.6 % 34.0 % Concent Red Cell Distribution Width 15.7 % 15.8 % Platelet Count 258 TH/MM3 279 TH/MM3 Mean Platelet Volume 8.4 FL 9.0 FL Neutrophils (%) (Auto) 49.5 % Lymphocytes (%) (Auto) 40.8 % Monocytes (%) (Auto) 8.6 % Eosinophils (%) (Auto) 0.5 % Basophils (%) (Auto) 0.6 % Neutrophils # (Auto) 3.0 TH/MM3 Lymphocytes # (Auto) 2.5 TH/MM3 Monocytes # (Auto) 0.5 TH/MM3 Eosinophils # (Auto) 0.0 TH/MM3 Basophils # (Auto) 0.0 TH/MM3 CBC Comment DIFF FINAL Differential Comment Laboratory Tests Test 04/10/16 04/11/16 04:32 05:30 Sodium Level 148 MEQ/L 148 MEQ/L Potassium Level 3.0 MEQ/L 3.2 MEQ/L Chloride Level 123 MEQ/L 123 MEQ/L Carbon Dioxide Level 18.3 MEQ/L 14.6 MEQ/L Anion Gap 7 MEQ/L 10 MEQ/L Blood Urea Nitrogen 3 MG/DL 2 MG/DL Creatinine 0.76 MG/DL 0.69 MG/DL Estimat Glomerular Filtration 92 ML/MIN 103 ML/MIN Rate Random Glucose 81 MG/DL 83 MG/DL Calcium Level 6.8 MG/DL 7.2 MG/DL Protein Corrected Calcium 8.7 MG/DL Total Protein 3.7 GM/DL Phosphorus Level 1.8 MG/DL Magnesium Level 1.7 MG/DL Albumin 1.6 GM/DL Microbiology Date/Time Procedure Status Source Growth 04/08/16 16:15 Urine Culture - Final Complete Urine Random Urine <10,000 CFU/ML GRAM POSITIVE DAVEY 04/11/16 06:25 Stool Occult Blood ([facility]) Received Stool Stool Pending Imaging Chest X-Ray 04/02/16 3554 Signed Impressions: Service Date/Time: Saturday, April 02, 2016 16:27 - CONCLUSION: 1. No acute cardiopulmonary process. 2. 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 Manuel López MD Abdomen/Pelvis CT 04/02/16 1554 Signed Impressions: Service Date/Time: Saturday, April 02, 2016 18:41 - CONCLUSION: 1. Nonobstructing renal stones being much more numerous and larger on the left side. The central calcifications in the left kidney resemble a staghorn calculus. 2. Mild dilatation of the right collecting system and right ureter. This suggests there may have been a passed stone. A stone in the right ureter is not seen. 3. Destructive changes at the femoral heads bilaterally. These changes appear chronic. These changes could be secondary to underlying process such as prior avascular necrosis, prior trauma or prior inflammatory change including infection or inflammatory arthritis. Marquis Galo MD Physical Exam GENERAL: Awake and alert, NAD SKIN: Cool and dry. Decreased turgor. No generalized rash or ecchymosis. HEENT: [place] conjunctivae, sunken eyeballs. No scleral icterus. No injection or drainage. Moist oral mucosa. NECK: Has some mild cervical lymphadenopathy. Supple, nontender, no meningeal signs. CARDIOVASCULAR: Regular rate and rhythm without murmurs, gallops, or rubs. RESPIRATORY: Clear to auscultation. Breath sounds equal bilaterally. No wheezes , rales, or rhonchi. GASTROINTESTINAL: Abdomen soft, nondistended, bowel sounds are present and normoactive, min tenderness, no guarding or rebound. MUSCULOSKELETAL: Extremities without clubbing, cyanosis, or edema. No calf tenderness. NEUROLOGICAL: Non-focal PSYCH: Calm and cooperative LINE: PIV with no evidence if infection Laboratory Assessment & Plan Remarks IMPRESSION Sepsis due to source, UC with E coli - better - repeat UA better Complicated UTI, has bilateral stones in GUT, prob passed stones in R side Nausea and vomiting due to UTI, has elevated lipase as well, ?pancreatitis - lipase down to normal Renal insufficiency likely due to poor po intake and sepsis, improving HIV, previous CD4 count last Oct >500 Failure to thrive RECOMMENDATION Stop HAART since she is not taking them NRTI usual cause for lactic acidosis among HAART Will change Ceftin to Rocephin so she can complete Rx for her UTI Follow-up with her HIV MD to evaluate her HAART Monitor progress Clinically stable from ID standpoint D/W Laverne Villasenor MD Apr 11, 2016 14:05
--- NOTE | 2016-04-11 15:01 | HHI.PR ---
Subjective Subjective Remarks awake, oriented to self, thinks she's at SNF has no complaints not eating much refusing meds no acute changes overnight Review of Systems Constitutional Constitutional: Weakness Constitutional Remarks 12 point ROS unreliable Vitals/Results Intake & Output 04/10/16 04/10/16 04/11/16 15:00 23:00 07:00 Intake Total 891 ml 240 ml 700 ml Output Total 1450 ml 850 ml Balance -559 ml -610 ml 700 ml Intake Oral 120 ml 240 ml IV Total 771 ml 200 ml Packed Cells 500 ml Output Urine Total 1450 ml 850 ml # Voids 4 # Bowel Movements 0 1 0 Vital Signs Vital Signs Date Time Temp Pulse Resp B/P Pulse Ox O2 Delivery O2 Flow Rate FiO2 04/11/16 12:00 97.7 77 18 119/72 100 04/11/16 08:00 98.2 74 17 120/59 98 04/11/16 04:00 98.5 78 16 102/61 100 04/10/16 23:45 98.4 75 16 99/59 100 04/10/16 23:44 98.4 75 18 99/59 100 04/10/16 21:00 98.6 74 18 102/61 100 04/10/16 20:35 98.3 80 18 95/55 100 04/10/16 20:35 80 18 95/55 100 04/10/16 20:00 98.8 91 16 98/55 99 04/10/16 20:00 86 04/10/16 18:18 98.0 81 16 104/58 100 04/10/16 18:09 17 84/52 100 04/10/16 18:07 99.5 77 16 84/52 100 04/10/16 16:00 98.8 82 18 83/51 99 CBC/BMP: 04/11/16 0530 04/11/16 0530 Lab Results Laboratory Tests Test 04/10/16 04/10/16 04/11/16 15:20 15:24 05:30 Blood Type O POSITIVE O POSITIVE Antibody Screen NEGATIVE Crossmatch Leukocyte-Reduced Red Blood Cells Blood Bank Comment White Blood Count 6.1 TH/MM3 Red Blood Count 3.99 MIL/MM3 Hemoglobin 12.0 GM/DL Hematocrit 35.2 % Mean Corpuscular Volume 88.2 FL Mean Corpuscular Hemoglobin 30.0 PG Mean Corpuscular Hemoglobin 34.0 % Concent Red Cell Distribution Width 15.8 % Platelet Count 279 TH/MM3 Mean Platelet Volume 9.0 FL Neutrophils (%) (Auto) 49.5 % Lymphocytes (%) (Auto) 40.8 % Monocytes (%) (Auto) 8.6 % Eosinophils (%) (Auto) 0.5 % Basophils (%) (Auto) 0.6 % Neutrophils # (Auto) 3.0 TH/MM3 Lymphocytes # (Auto) 2.5 TH/MM3 Monocytes # (Auto) 0.5 TH/MM3 Eosinophils # (Auto) 0.0 TH/MM3 Basophils # (Auto) 0.0 TH/MM3 CBC Comment DIFF FINAL Differential Comment Sodium Level 148 MEQ/L Potassium Level 3.2 MEQ/L Chloride Level 123 MEQ/L Carbon Dioxide Level 14.6 MEQ/L Anion Gap 10 MEQ/L Blood Urea Nitrogen 2 MG/DL Creatinine 0.69 MG/DL Estimat Glomerular Filtration 103 ML/MIN Rate Random Glucose 83 MG/DL Calcium Level 7.2 MG/DL Phosphorus Level 1.8 MG/DL Magnesium Level 1.7 MG/DL Albumin 1.6 GM/DL Microbiology Microbiology 04/11/16 Stool Occult Blood ([facility]), Received Pending Physical Exam General General Appearance: No Acute Distress, Malnourished Eyes Eye Exam: Pupils Equal, Pupils Reactive, Sclera White Ears & Nose Ears & Nose Exam: Nasal Mucosa [place] Throat Throat Exam: Oral Mucosa [place] & Moist Neck Neck Exam: Neck Supple, Trachea Midline Pulmonary Resp Exam: No Distress, Decreased Bases Cardiology CV Exam: Regular Gastrointestinal/Abdomen GI Exam: Soft, Non-Tender, Bowel Sounds Present, Non-Distended Musculoskeletal MS Exam: Joints Intact, Atrophy Integumentary Skin Exam: Warm, Dry Extremeties Extremities Exam: No Edema, Pedal Pulses Palpable Neurologic Neuro Exam: Alert, Awake, Speech Clear, Moving All Extremities, No Focal Deficits VTE Prophylaxis VTE Prophylaxis Meds: Heparin Assessment/Plan Problem List: (1) Sepsis (2) HIV (human immunodeficiency virus infection) (3) UTI (lower urinary tract infection) (4) Metabolic acidosis (5) Hypophosphatemia (6) Nephrolithiasis (7) Malnourished (8) Thrush (9) Leukocytosis (10) Bilateral kidney stones (11) Hypokalemia (12) Anemia (13) Acute renal insufficiency Assessment/Plan appreciate nephrology input per nephrology, poss. Fanconi syndrome secondary Tenofovir. CO2 14.6 continue with NS at 30hr Replace Kphos Monitor sodium, Na 148 Hypotension, BP improved, received fluid bolus on 04/10 continue with IVF appreciate ID continue with antibiotics, follow cultures UA + Ecoli repeat UA, UC < GPC, no sens change to Rocephin, pt. refusing PO meds ID reconsult to address HAART recommends to stop HAART, pt. has refused for last 3 days appreciate urology input continue with conservative management, may need lithotripsy as OP Anemia S/P PRBC 04/10 09/07 HH stable Hgb 12 Hemoccult pending Abd. xray noted, mild ileus start clear liquid diet if N/V, insert NGT poor nutritional status continue Megace OOB, PT eval Heparin for DVT prophylaxis Pepcid for GI prophylaxis Poor prognosis Pt. refusing meds, capacity to make decisions questionable. Sister is JUDI, was called yesterday. Has transportation issues Will need to define goals of care, code ostatus. Pt. continues to decline, benefits from hospice Consult palliative care for assistance DC planning soon back to SNF D/W RN D/W Dr. Ames D/W pt. This patient was seen by myself and Dr. Ames, this note is written on his behalf. Problem Qualifiers (1) Sepsis: Qualified Code: A41.51 - Sepsis due to Escherichia coli (2) Leukocytosis: Qualified Code: D72.829 - Leukocytosis, unspecified type (3) Anemia: Doretha Bennett Apr 11, 2016 15:01
[2016-04-11 16:00] VITALS: BP 121/65; PULSE 64; RESP 19; TEMP 96; O2SAT 100
[2016-04-11] MEDS ORDERED: POTASSIUM PHOSPHATE INJ 30 MMOL in SODIUM CHLOR 0.9% 250 ML INJ 250 ML IV ONE (16:00)
[2016-04-11] MEDS: SODIUM CHLOR 0.45% 1000 ML INJ 1,000 ML IV SCH (16:19)
[2016-04-11] MEDS: cefTRIAXone INJ 1,000 MG in SODIUM CHLORIDE 0.9% INJ 100 ML IV SCH (16:19)
--- NOTE | 2016-04-11 17:00 | HHI.NPPN ---
Subjective History of Present Illness The patient is a 65 yo AA female who presented to the hospital on 04/02 with complaints of abdominal pain, anorexia, nausea, vomiting. 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 Urology has seen the patient and as her symptoms have been improving, they have chosen a conservative approach for the present with consideration of Lithotripsy as outpatient. Repeat renal US shows resolution of hydronephrosis. She initially had an acute renal decline with SCr at 1.45 that has improved to 0.96 at consult. Her PMHx includes HIV for which she sees a local ID doctor (but cannot recall name) and mentions she has had a recent change in medications, HTN, HLD, Hypothyroidism, GERd, HSV-2. Note the patient is a poor historian. Denies any known previous hx of CKD. Does mention she has had multiple issues with kidney stones in the past and says she has seen Dr. Arambula. Has numerous chemistry imbalances with hypokalemia, acidosis, hypophosphatemia, and initially hyponatremia. Interval History Patient had no verbal complaints today. Review of Systems General Constitutional: Fatigue Objective Data Data 04/10/16 04/11/16 19:00 07:00 Intake Total 891 ml 940 ml Output Total 1450 ml 850 ml Balance -559 ml 90 ml Intake Oral 120 ml 240 ml IV Total 771 ml 200 ml Packed Cells 500 ml Output Urine Total 1450 ml 850 ml # Voids 4 # Bowel Movements 0 1 Vital Signs Date Time Temp Pulse Resp B/P Pulse Ox O2 Delivery O2 Flow Rate FiO2 04/11/16 16:00 96.0 64 19 121/65 100 04/11/16 12:00 97.7 77 18 119/72 100 04/11/16 08:00 98.2 74 17 120/59 98 04/11/16 04:00 98.5 78 16 102/61 100 04/10/16 23:45 98.4 75 16 99/59 100 04/10/16 23:44 98.4 75 18 99/59 100 04/10/16 21:00 98.6 74 18 102/61 100 04/10/16 20:35 98.3 80 18 95/55 100 04/10/16 20:35 80 18 95/55 100 04/10/16 20:00 98.8 91 16 98/55 99 04/10/16 20:00 86 04/10/16 18:18 98.0 81 16 104/58 100 04/10/16 18:09 17 84/52 100 04/10/16 18:07 99.5 77 16 84/52 100 -: 04/11/16 0530 04/11/16 0530 Microbiology 04/11/16 Stool Occult Blood ([facility]) - Final, Complete HEMOCCULT NEGATIVE Physical Exam General Appearance: No Acute Distress, Malnourished Eyes Eye Exam: Pupils Equal, Pupils Reactive, Sclera White Ears & Nose Ears & Nose Exam: Nasal Mucosa [place] Throat Throat Exam: Oral Mucosa [place] & Moist Neck Neck Exam: Neck Supple, Trachea Midline Pulmonary Resp Exam: No Distress, Decreased Bases Cardiology CV Exam: Regular Gastrointestinal/Abdomen GI Exam: Soft, Non-Tender, Bowel Sounds Present, Non-Distended Musculoskeletal MS Exam: Joints Intact, Atrophy Integumentary Skin Exam: Warm, Dry Extremeties Extremities Exam: No Edema, Pedal Pulses Palpable Neurologic Neuro Exam: Alert, Awake, Speech Clear, Moving All Extremities, No Focal Deficits Assessment/Plan Problem List: (1) Acute renal insufficiency Plan: Hyponatremia is persisting and I suspect the patient's fluid intake is inadequate. In addition I do not believe she is being compliant with sodium bicarbonate supplementation. At this point in time will start IV hydration with D5W with added sodium bicarbonate. Infectious disease note reviewed. (2) HIV (human immunodeficiency virus infection) Plan: Mgmt as per ID (3) Hypokalemia Plan: Urine potassium level slightly higher than it should be suggesting that there is some renal wasting of potassium. Her multiple electrolyte abnormalities is likely related to her HIV and medications. Can be exacerbated by her poor nutritional state. She is cachetic and has failure to thrive. (4) Metabolic acidosis Plan: Urine pH is now above 7.5 with administration of sodium bicarbonate. This suggests wasting of bicarbonate in the urine. 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 24 urine for phosphate is still pending also but suspect hyperphosphatemia may be secondary to a combination of poor nutritional intake and urinary phosphate wasting but this needs to be confirmed. It is noted patient is not currently taking her HIV medications. Hopefully her electrolyte disorder will improve but subsequently decision will have to be made regarding treatment of HIV. I will defer this to her regular physician. (5) Hypophosphatemia Plan: Do not believe 24-hour urine phosphate was performed. Will reorder. (6) UTI (lower urinary tract infection) Plan: Mgmt as per primary (7) Anemia Plan: Hg dropping Fe stores normal SPEP no M-spike. Defer to primary (8) Nephrolithiasis Plan: Mgmt as per urology. Problem Qualifiers (1) Anemia: Laxmi Reyes MD Apr 11, 2016 17:00
[2016-04-11] MEDS: SODIUM BICARBONATE IV SCH ×3 (18:33)
[2016-04-11] MEDS: POTASSIUM CHLORIDE IV SCH ×3 (18:33)
[2016-04-11] MEDS: DEXTROSE 5% IV SCH ×3 (18:33)
[2016-04-11] MEDS: [UNRECOGNIZED DRUG - OTHER] IV SCH ×3 (18:33)
[2016-04-11 20:00] VITALS: BP 101/58; PULSE 83; RESP 16; TEMP 98.8; O2SAT 100
[2016-04-11] MEDS: LATANOPROST 0.005% OPHT SOLN 2.5 ML BTL EACH EYE SCH (21:00)
[2016-04-11] MEDS: ATORVASTATIN 20 MG TAB PO SCH (21:00)
[2016-04-12] VITALS: BP 109/62; PULSE 82; RESP 16; TEMP 97.1; O2SAT 100
[2016-04-12 04:00] VITALS: BP 93/54; PULSE 67; RESP 16; TEMP 97.3; O2SAT 100
[2016-04-12 06:00] LABS: HEMATOCRIT 34.6 % (35.0-46.0); MEAN CELL VOLUME 88.2 FL (80.0-100.0); MEAN CORPUSCULAR HEMOGLOBIN 29.2 PG (27.0-34.0); MEAN CORPUSCULAR HGB CONC 33.1 % (32.0-36.0); PLATELET COUNT 268 TH/MM3 (150-450); RED BLOOD COUNT 3.92 MIL/MM3 (4.00-5.30); RED CELL DISTRIBUTION WIDTH 15.6 % (11.6-17.2); REVIEW FLAG FINAL; WHITE BLOOD COUNT 6.6 TH/MM3 (4.0-11.0)
[2016-04-12] MEDS: LEVOTHYROXINE SODIUM 50 MCG TAB PO SCH (06:00)
[2016-04-12 06:30] LABS: BICARBONATE 15.6 MEQ/L (21.0-32.0); MAGNESIUM 1.7 MG/DL (1.5-2.5); POTASSIUM 3.4 MEQ/L (3.5-5.1)
[2016-04-12 06:42] LABS: CALCIUM-PROTEIN CORRECTED 8.7 MG/DL (8.5-10.1)
[2016-04-12 08:00] VITALS: BP 95/60; PULSE 76; RESP 19; TEMP 98.6; O2SAT 99
[2016-04-12] MEDS: [UNRECOGNIZED DRUG - OTHER] IV SCH ×6 (08:58→20:07)
[2016-04-12] MEDS: SODIUM BICARBONATE IV SCH ×6 (08:58→20:07)
[2016-04-12] MEDS: SODIUM CHLORIDE 0.9% FLUSH 5 ML FLUSH FLUSH SCH ×2 (08:58→20:05)
[2016-04-12] MEDS: DEXTROSE 5% IV SCH ×6 (08:58→20:07)
[2016-04-12] MEDS: POTASSIUM CHLORIDE IV SCH ×6 (08:58→20:07)
[2016-04-12] MEDS: DOCUSATE SODIUM 50 MG/SENNA 8.6 MG TAB PO SCH ×3 (09:00→17:22)
[2016-04-12] MEDS: POLYETHYLENE GLYCOL 17 GM PKG PO SCH (09:00)
[2016-04-12] MEDS: FERROUS SULFATE 325 MG (65 MG ELEMENTAL IRON) TAB PO SCH ×3 (10:03→17:22)
[2016-04-12] MEDS: GABAPENTIN 300 MG CAP PO SCH ×2 (10:03→20:05)
[2016-04-12] MEDS: CYANOCOBALAMIN 1,000 MCG TAB PO SCH ×2 (10:03→20:05)
[2016-04-12] MEDS: CALCIUM/VITAMIN D 250 MG/125 U TAB PO SCH ×2 (10:03→20:05)
[2016-04-12] MEDS: DOLUTEGRAVIR SODIUM 50 MG TAB PO SCH (10:03)
[2016-04-12] MEDS: MULTIVITAMINS/MINERALS THERAPEUTIC TAB PO SCH (10:03)
[2016-04-12] MEDS: CALCIUM CARBONATE 500 MG CHEWABLE TAB CHEW SCH ×2 (10:04→20:05)
[2016-04-12] MEDS: ASCORBIC ACID 500 MG TAB PO SCH (10:04)
[2016-04-12] MEDS: FENOFIBRATE 145 MG TAB PO SCH (10:04)
[2016-04-12] MEDS: ACETAMINOPHEN/HYDROcodone 325 MG/5 MG TAB PO SCH ×3 (10:04→17:22)
[2016-04-12] MEDS: SERTRALINE HCL 50 MG TAB PO SCH (10:04)
[2016-04-12] MEDS: FAMOTIDINE 20 MG TAB PO SCH ×2 (10:04→20:05)
[2016-04-12] MEDS: HEPARIN SODIUM - SQ 10,000 UNITS/ML VIAL SQ SCH ×2 (10:05→20:06)
[2016-04-12] MEDS: MEGESTROL ACETATE SUSP 400 MG/10 ML CUP PO SCH (10:05)
--- NOTE | 2016-04-12 11:24 | PD.CONS ---
Consult Service Palliative Care Consult Requested By / Donald ZHENG History of HIV, here for SBO, lactic acidosis, refusing meds. POA sister, can' t visit due to transportation issues. Assist with clarifying goals of care. Patient is failure to thrive Primary Care Physician Esequiel Polanco M.D. Reason for Consultation a. To assist with evaluation and management of symptoms including: pain, debility, failure to thrive b. To assist medical decision maker(s) with: better understanding of current medical conditions; weighing benefits/burdens of medical treatment options; making medical treatment decisions. HPI History of Present Illness This is a 65-year-old female who has been a resident at [facility] since 2010. She presented to the emergency room on 04/02/2016 with complaints of decreased food/ fluid intake, abdominal pain, nausea and refusing to take her medications. She had no appetite and had N /V. She was also experiencing abdominal pain for the prior 5 weeks that had gone from mild to severe. Initial diagnostics identified a urinary tract infection with Escherichia coli as well as the presence of multiple renal calculi, worse on the left and right. Imaging indicated she may have recently passed a stone on the right side. She reports a history of renal calculi and has been followed by urology as an outpatient. She also has HIV and has been following with infectious disease/ Dr. Castillo. Her last CD4 is 572 and she is on 3 antivirals. On admission, Labs identified anemia with a hemoglobin of 10.3. During this hospital course, it dropped to 7.0, at which time she was transfused 2 units of PRBCs. She was also found to have several electrolyte imbalances hyponatremia , hypokalemia, acidosis, hypophosphatemia , likely related to dehydration and lack of eating. Despite intervention. Her imbalances remain. She is also noted to have a low albumin of 1.6 Initially she presented with acute renal decline that has now resolved. She is being followed by renal. On 04/05/2016, she was determined to have a small bowel ileus. Repeat study done on April 10, 2016 continued to show gaseous distention of multiple bowel loops. She is denying abdominal pain. She is tolerating liquids. The time of my visit. She is seen in bed and appears to be comfortable. She is awake and able to make her needs known. Her speech is somewhat garbled and at times difficult to understand. At times she will repeat herself and failed to answer some specific questions. She denies abdominal pain, nausea and shortness of breath, She does indicate that she is thirsty and hungry. She is observed with physical therapy for wanting to get her out of bed. She is very stiff in her lower extremities with pain exhibited and expressed in trying to bend her knees and with touching her feet. She refuses to sit up onto the side of the bed. Attempted to clarify goals of care. She is vague at this point in time, although when asked if she would want CPR or intubation. She indicated "I already signed those papers" -" I don't want that". A [place]. DO NOT RESUSCITATE order is found on her chart. She has no children and apparently is close to one sister, Darleen. She gives me permission to speak with her. She had a prior presentation to the emergency room one month prior with complaints of fatigue. Otherwise, she had not presented to the hospital since 2014 Patient has a history of HIV, chronic osteoarthritic pain painbilateral hips and shoulders, and mood disorder. She also has chronic secondary to severe degenerative osteoarthritis in both shoulders as well as both hips, protein calorie malnutrition Function/Cognitive Trajectory She has very physical limited function. Clearly has been more bedridden/ wheelchair in the last few months. She is unable to tolerate any physical activity. It appears that she may have the beginning of some contracturing to her hands. She states she is able to feed herself. As for her cognitive state. She is clear in some areas, but vague in others. This could be due to her current acute clinical condition. Review of Systems ROS Limitations: Clinical Condition Constitutional: COMPLAINS OF: Fatigue, Weight loss, Change in appetite, Generalized weakness Endocrine: DENIES: Heat/cold intolerance, Polydipsia, Polyuria, Polyphagia Respiratory: COMPLAINS OF: Shortness of breath Cardiovascular: DENIES: Chest pain, Palpitations, Syncope, Dyspnea on Exertion , PND, Lower Extremity Edema, Orthopnea, Claudication Gastrointestinal: COMPLAINS OF: Abdominal pain, Constipation, Nausea, Vomiting , Anorexia Genitourinary: COMPLAINS OF: Vaginal discharge, DENIES: Urinary incontinence, Dysuria Musculoskeletal: COMPLAINS OF: Joint pain, Stiffness, Decreased range of motion Integumentary: COMPLAINS OF: Non-healing sores (pressure ulcers noted to bilateral buttocks, ) Immunologic/Allergic: DENIES: Eczema, Urticaria Neurologic: COMPLAINS OF: Paresthesias Psychiatric: COMPLAINS OF: Delusions, DENIES: Anxiety, Depression, Agitation Other ROS: She lacks upper teeth and has the absence of molars in the lower jaw, making it difficult to chew Past Family Social History Coded Allergies: Do (Verified Allergy, Severe, 04/02/16) Past Medical History HIV Anemia Hyperlipidemia Gastritis Degenerative joint disease of the shoulders and hips Constipation Hypothyroidism Nausea Genital herpes . Past Surgical History Had cyst removed from the right side of abdomen . Reported Medications Descovy (Emtricitabine-Tenofovir Alafenamide) 200-25 mg Tab 1 Tab PO DAILY Prezcobix (Darunavir-Cobicistat) 800-150 Mg Tab 1 Tab PO DAILY Tivicay (Dolutegravir Sodium) 50 Mg Tab 50 Mg PO DAILY Zoloft (Sertraline HCl) 25 Mg Tab 25 Mg PO DAILY Megace Liq (Megestrol Acetate) 40 Mg/Ml Susp 400 Mg PO DAILY Levothyroxine (Levothyroxine Sodium) 50 Mcg Tab 50 Mcg PO DAILY Atorvastatin (Atorvastatin Calcium) 20 Mg Tab 20 Mg PO HS Fenofibrate 160 Mg Tab 160 Mg PO DAILY Omeprazole 20 Mg Cap 20 Mg PO DAILY Gabapentin 300 Mg Cap 300 Mg PO Q8HR Lasix (Furosemide) 40 Mg Tab 40 Mg PO DAILY @ 1300 Fosamax (Alendronate Sodium) 70 Mg Tab 70 Mg PO Q7D Lortab (Hydrocodone-Acetaminophen) 5-325 Mg Tab 1 Tab PO TID Latanoprost Opth Drops (Latanoprost) 0.005% Drops 1 Drop EACH EYE HS Refrigerate until opened. Colace (Docusate Sodium) 100 Mg Cap 100 Mg PO TID Senna-S 8.6-50 mg (Sennosides-Docusate Sodium) 1 Tab Tab 1 Tab PO TID Miralax Powder (Polyethylene Glycol 3350 Powder) 17 Gm Powd 17 Gm PO DAILY Mix and dissolve one measuring cap-ful (17 grams) in water or juice. Prochlorperazine Supp (Prochlorperazine) 25 Mg Supp 25 Mg RECTAL QID Ferrous Sulfate 325 Mg Tab 325 Mg PO TID Potassium Chloride ER (Potassium Chloride) 20 Meq Tab 40 Meq PO DAILY Calcium 600 with Vitamin D (Calcium Carbonate-Cholecalciferol) 600-400 mg-Unit Tab 1 Tab PO BID [id number] (Ascorbic Acid) 1,000 Mg Tab 1,000 Mg PO DAILY B-12 (Cyanocobalamin) 1,000 Mcg Subl 1,000 Mcg PO BID Thera-M (Multiple Vitamins W/ Minerals) 1 Tab 1 Tab PO DAILY Tums (Calcium Carbonate (Antacid)) 500 Mg Chew 500 Mg CHEW Q12HR PRN's Prochlorperazine Maleate 10 Mg Tab 10 Mg PO TID PRN Milk of Magnesia Liq (Magnesium Hydroxide) 400 Mg/5 Ml Susp 30 Ml PO Q4HR PRN Loperamide (Loperamide HCl) 2 Mg Cap 2 Mg PO DIRECTED PRN Give two capsules for the initial dose then, One capsule after each loose stool. Not to exceed 8 capsules per day. Fleet Enema Rectal (Sodium Phosphates Rectal) 7-19 Gm/118 Ml Enem 118 Ml RECTAL DIRECTED PRN Dulcolax Supp (Bisacodyl) 10 Mg Supp 10 Mg RECTAL DIRECTED PRN Mapap (Acetaminophen) 325 Mg Tab 650 Mg PO Q4HR PRN Mylanta Liq (Fumkscew-Tmgdphklf-Uhceqpltxat Liq) 200-200-20 Mg/5 Ml Susp 30 Ml PO Q4HR PRN Take between meals or as directed. Shake well. Maximum 120 ml/24 hrs. . Current Medications Medications (Trade) Dose Ordered Sig/Rodolfo Route Start Time Stop Time Status Last Admin (NS Flush) 2 ml UNSCH PRN FLUSH 04/02/16 20:30 (NS Flush) 2 ml BID FLUSH 04/02/16 21:00 04/07/16 10:04 (Zofran Inj) 4 mg Q6H PRN IVP 04/02/16 20:30 04/08/16 09:56 (Senokot) 17.2 mg Q12H PRN PO 04/02/16 20:30 (Heparin Inj) 5,000 units Q12H SQ 04/02/16 21:00 04/12/16 10:05 (Narcan Inj) 0.4 mg UNSCH PRN IV 04/02/16 20:30 (Pepcid) 10 mg BID PO 04/02/16 21:00 04/12/16 10:04 (Tylenol) 650 mg Q4HR PRN PO 04/03/16 07:30 (Fosamax) 70 mg Q7D PO 04/09/16 07:00 04/09/16 07:33 (Vitamin C) 1,000 mg DAILY PO 04/03/16 09:00 04/12/16 10:04 (Lipitor) 20 mg HS PO 04/03/16 21:00 04/09/16 21:16 (Dulcolax Supp) 10 mg DAILY PRN RECTAL 04/03/16 07:30 (Tums Chew) 500 mg Q12HR CHEW 04/03/16 09:00 04/12/16 10:04 (Oscal-D 250-125) 500 mg BID PO 04/03/16 09:00 04/12/16 10:03 (Tricor) 145 mg DAILY PO 04/03/16 09:00 04/12/16 10:04 (Ferrous Sulfate) 325 mg TID PO 04/03/16 09:00 04/12/16 10:03 (Neurontin) 300 mg Q12HR PO 04/03/16 21:00 04/12/16 10:03 ([place] 5-325 Mg) 1 tab TID PO 04/03/16 09:00 04/12/16 10:04 (Xalatan 0.005% Opth Soln) 1 drop HS EACH EYE 04/03/16 21:00 04/10/16 21:00 (Synthroid) 50 mcg DAILY@0600 PO 04/03/16 08:15 04/09/16 07:33 (Imodium) 2 mg BID PRN PO 04/03/16 07:30 (Milk Of Magnesia Liq) 30 ml Q4HR PRN PO 04/03/16 07:30 (Megace Liq) 400 mg DAILY PO 04/03/16 09:00 04/12/16 10:05 (Theragran M Tab) 1 tab DAILY PO 04/03/16 09:00 04/12/16 10:03 (Miralax) 17 gm DAILY PO 04/03/16 09:00 04/10/16 08:05 (Nikia-Colace) 1 tab TID PO 04/03/16 09:00 04/08/16 17:11 (Zoloft) 25 mg DAILY PO 04/03/16 09:00 04/12/16 10:04 (Fleets Enema (Adult)) 118 ml DAILY PRN RECTAL 04/03/16 07:30 (Vitamin B12) 1,000 mcg BID PO 04/03/16 09:00 04/12/16 10:03 (Pill Splitter) 1 ea UNSCH PRN OTHER 04/03/16 08:30 Al Hydrox/Mg Hydrox/ Simethicone 30 ml 30 ml Q6H PRN PO 04/04/16 15:30 Ceftriaxone Sodium 1000 mg/ Sodium Chloride 100 ml @ 200 mls/hr Q24H IV 04/11/16 15:00 04/19/16 14:59 04/11/16 16:19 (Sodium Bicarbonate 8.4% Inj/KCl Inj/D5W 1000 ml Inj) 1,085 ml @ 75 mls/hr [id number] IV 04/11/16 18:00 04/12/16 08:58 Family History Family history is unobtainable as patient only responds 'they are all grown". When asked where family lives she responds " they are all scattered. She is only able to give me the names of 2 sisters - Mirian and Naomi - but there are other family members. I was able to talk w her sister Mirian who has been an advocate for her, but is not official HCS. . Substance Use Tobacco: Smoking in 2009. Smoked 1/4 to 1/2 packs Alcohol: No current alcohol use Prescription med abuse: Denies Illicits: Reports a remote history of having it done drugs in the past . Psychosocial History Has a high school education, she was living with her sister as caregiver until 2010 when she transition to [facility]. She reported acquiring HIV from her who is now . Her sister has issues with a who has had a stroke and she is caring for a 3-year-old that she cannot leave alone. She states she saw her sister when she was last at the skilled facility about 14 days ago and that she spoke with her on the phone today. . Spiritual/Cultural Factors Has been involved the Protestant Lutheran, family of origin is -[place], . Living Will: Never completed Health Care Surrogate: Never completed (her sister's Darleen has been a vocal advocate for her, but is not designated as HCS) Durable Power of Outdoor [employer] Instructor: Never completed Health Care Surrogate(s): No HCS appointed. Today's verbally stated goals: She is clear that in indicating that she does not want DNR/DNI. Discussed hospice and she tells me she believes she is already signed those papers. However, no documentation is available at this time. It is documented in Dr. Polanco's notes from [facility] that she was referred to hospice, but the family did not agree and that the patient was"incapable of making decisions at present." This progress note was dated on March 29, [address] Esequiel Polanco. Family/friends goals: In speaking with her sister Darleen, she does not agree to a DNR "doesn't know who talked her into signing that". She also questions if the patient is right for hospice. However, Darleen is not a health care surrogate. Ethical and Legal Issues There is some confusion as to the patient's name. Some records indicate her name is Yessenia Rain. All other records identify her as Gabino Rain - This name is what is listed on her insurance cards scanned into the system. At this time, there is no designated HCS nor POA. Physical Exam Vital Signs Date Time Temp Pulse Resp B/P Pulse Ox O2 Delivery O2 Flow Rate FiO2 04/12/16 08:00 98.6 76 19 95/60 99 04/12/16 04:00 97.3 67 16 93/54 100 04/12/16 00:00 97.1 82 16 109/62 100 04/11/16 20:00 98.8 83 16 101/58 100 04/11/16 16:00 96.0 64 19 121/65 100 04/11/16 12:00 97.7 77 18 119/72 100 04/11/16 04/12/16 19:00 07:00 Intake Total 400 ml 240 ml Output Total 500 ml 1100 ml Balance -100 ml -860 ml Intake Oral 0 ml 240 ml IV Total 400 ml Output Urine Total 500 ml 1100 ml # Bowel Movements 1 3 Exam CONSTITUTIONAL/GENERAL: This is thin, female, in no apparent distress. TUBES/LINES/DRAINS: Oakes catheter, IV lines SKIN: She has a large decubitus to her buttocks that is full-thickness. No jaundice, rashes, or lesions. Skin temperature appropriate. Not diaphoretic. HEAD: Atraumatic. Normocephalic. EYES: Pupils equal and round and reactive. Extraocular motions intact. No scleral icterus. No injection or drainage. Fundi not examined. ENT: Hearing grossly normal. Nose without bleeding or purulent drainage. Throat without visible erythema, exudates, masses, or lesions. She has no upper teeth and has lost all of her lower molars NECK: Trachea midline. Supple, nontender. No palpable thyroid enlargement or nodularity. CARDIOVASCULAR: Regular rate and rhythm without murmurs, gallops, or rubs. No JVD. Peripheral pulses symmetric. RESPIRATORY/CHEST: Symmetric, unlabored respirations. Clear to auscultation. Breath sounds equal bilaterally. No wheezes, rales, or rhonchi. GASTROINTESTINAL: Abdomen soft, non-tender, nondistended. No hepato-splenomegaly , or palpable masses. No guarding. Bowel sounds present. GENITOURINARY: Without palpable bladder distension. Oakes catheter in place. MUSCULOSKELETAL: Extremities without clubbing, cyanosis, or edema. She is very stiff in her knees with very limited range of motion. No calf tenderness. No mottling or clubbing. LYMPHATICS: No palpable cervical or supraclavicular adenopathy. NEUROLOGICAL: Awake and alert to self, place, but states the date is 1995. Motor and sensory are within normal limits. She has sensitivity when touching her feet. Follows commands to the ability of her limitations. Cognitively limited. Unable to move extremities due to musculoskeletal issues. PSYCHIATRIC: No obvious anxiety/depression. no apparent hallucinations or other psychotic thought process. Her thought process is slow, yet at times she is quite clear, and expressing her goals and needs. Diagnostic Tests Laboratory Laboratory Tests Test 04/10/16 04/10/16 04/10/16 04/11/16 04:32 15:20 15:24 05:30 White Blood Count 5.8 TH/MM3 6.1 TH/MM3 (4.0-11.0) (4.0-11.0) Red Blood Count 2.35 MIL/MM3 3.99 MIL/MM3 (4.00-5.30) (4.00-5.30) Hemoglobin 7.0 GM/DL 12.0 GM/DL (11.6-15.3) (11.6-15.3) Hematocrit 21.5 % 35.2 % (35.0-46.0) (35.0-46.0) Mean Corpuscular Volume 91.5 FL 88.2 FL (80.0-100.0) (80.0-100.0) Mean Corpuscular Hemoglobin 29.9 PG 30.0 PG (27.0-34.0) (27.0-34.0) Mean Corpuscular Hemoglobin 32.6 % 34.0 % Concent (32.0-36.0) (32.0-36.0) Red Cell Distribution Width 15.7 % 15.8 % (11.6-17.2) (11.6-17.2) Platelet Count 258 TH/MM3 279 TH/MM3 (150-450) (150-450) Mean Platelet Volume 8.4 FL 9.0 FL (7.0-11.0) (7.0-11.0) Sodium Level 148 MEQ/L 148 MEQ/L (136-145) (136-145) Potassium Level 3.0 MEQ/L 3.2 MEQ/L (3.5-5.1) (3.5-5.1) Chloride Level 123 MEQ/L 123 MEQ/L (98-107) (98-107) Carbon Dioxide Level 18.3 MEQ/L 14.6 MEQ/L (21.0-32.0) (21.0-32.0) Anion Gap 7 MEQ/L (5-15) 10 MEQ/L (5-15) Blood Urea Nitrogen 3 MG/DL (7-18) 2 MG/DL (7-18) Creatinine 0.76 MG/DL 0.69 MG/DL (0.50-1.00) (0.50-1.00) Estimat Glomerular Filtration 92 ML/MIN (>89) 103 ML/MIN Rate (>89) Random Glucose 81 MG/DL 83 MG/DL (74-106) (74-106) Calcium Level 6.8 MG/DL 7.2 MG/DL (8.5-10.1) (8.5-10.1) Protein Corrected Calcium 8.7 MG/DL (8.5-10.1) Total Protein 3.7 GM/DL (6.4-8.2) Blood Type O POSITIVE O POSITIVE Antibody Screen NEGATIVE Crossmatch Leukocyte-Reduced Red Blood Cells Blood Bank Comment Neutrophils (%) (Auto) 49.5 % (16.0-70.0) Lymphocytes (%) (Auto) 40.8 % (9.0-44.0) Monocytes (%) (Auto) 8.6 % (0.0-8.0) Eosinophils (%) (Auto) 0.5 % (0.0-4.0) Basophils (%) (Auto) 0.6 % (0.0-2.0) Neutrophils # (Auto) 3.0 TH/MM3 (1.8-7.7) Lymphocytes # (Auto) 2.5 TH/MM3 (1.0-4.8) Monocytes # (Auto) 0.5 TH/MM3 (0-0.9) Eosinophils # (Auto) 0.0 TH/MM3 (0-0.4) Basophils # (Auto) 0.0 TH/MM3 (0-0.2) CBC Comment DIFF FINAL Differential Comment Phosphorus Level 1.8 MG/DL (2.5-4.9) Magnesium Level 1.7 MG/DL (1.5-2.5) Albumin 1.6 GM/DL (3.4-5.0) Test 04/12/16 05:28 White Blood Count 6.6 TH/MM3 (4.0-11.0) Red Blood Count 3.92 MIL/MM3 (4.00-5.30) Hemoglobin 11.5 GM/DL (11.6-15.3) Hematocrit 34.6 % (35.0-46.0) Mean Corpuscular Volume 88.2 FL (80.0-100.0) Mean Corpuscular Hemoglobin 29.2 PG (27.0-34.0) Mean Corpuscular Hemoglobin 33.1 % Concent (32.0-36.0) Red Cell Distribution Width 15.6 % (11.6-17.2) Platelet Count 268 TH/MM3 (150-450) Mean Platelet Volume 8.3 FL (7.0-11.0) Sodium Level 146 MEQ/L (136-145) Potassium Level 3.4 MEQ/L (3.5-5.1) Chloride Level 121 MEQ/L (98-107) Carbon Dioxide Level 15.6 MEQ/L (21.0-32.0) Anion Gap 9 MEQ/L (5-15) Blood Urea Nitrogen 3 MG/DL (7-18) Creatinine 0.68 MG/DL (0.50-1.00) Estimat Glomerular Filtration 105 ML/MIN Rate (>89) Random Glucose 90 MG/DL (74-106) Calcium Level 7.1 MG/DL (8.5-10.1) Protein Corrected Calcium 8.7 MG/DL (8.5-10.1) Magnesium Level 1.7 MG/DL (1.5-2.5) Total Protein 4.2 GM/DL (6.4-8.2) Result Diagram: 04/12/16 0528 04/12/16 0528 Microbiology Microbiology Date/Time Procedure Status Source Growth 04/11/16 06:25 Stool Occult Blood ([facility]) - Final Complete Stool Stool HEMOCCULT NEGATIVE Microbiology of urine on April 02, 2016 was positive for Escherichia coli Imaging Last 72 hours Impressions Abdomen X-Ray 04/10/16 0000 Signed Impressions: Service Date/Time: Sunday, April 10, 2016 16:41 - CONCLUSION: 1. Gaseous distention of multiple bowel loops which can be seen with ileus. 2. Left-sided renal calculi. Kwame Fountain MD April 02, 2016 CT of abdomen and pelvis with IV contrast: Nonobstructing renal stones being much more numerous and larger on the left side. The central calcifications. The left kidney resemble a staghorn calculus. Mild dilation of the right collecting system and right uterus. Suggest may have been a stone passed. Stone in the right ureter is not seen. April 02, 2016 CT abdomen distractive changes in the femoral heads bilaterally appear to be chronic. Could be secondary to underlying process such as prior avascular necrosis, or inflammatory changes due to arthritis April 02, 2016 chest x-ray identified lungs to be symmetrically aerated without evidence of mass, infiltrate or effusion. Mediastinal contours are unremarkable. Severe degenerative osteoarthritic changes noted in both shoulders Patient/Family Conference Present at Family Conference: Spoke with her sister Mirian via phone. She is a vocal advocate for her sister while she is not the [facility]. She was the one that asked she be brought to the hospital for this admission. She had spoken with Dr. Polanco regarding hospice admission on 03/29/16 however at the time she was not in agreement with that. She is able to correlate the patient's story as well as the progressive decline that she is seen since being admitted to [facility] 2010. She is in distress regarding her sister's lack of desire to eat or take her medications. She indicates that her sister is important to her and wants the best for her. When I told her that in my conversation today with her sister Yessenia that it would be her desire to be with hospice and felt that she had already signed the paperwork. To lower his indicated well. If that's what she wants, then that's what she wants. She appreciated the phone call with updates on her sister's condition. . Family Conference Location: Telephone Issues Discussed: * Palliative care role, purpose, approach * Additional medical, psychosocial, and spiritual history * Patients general health, functional status, and cognitive changes in the months leading up to the current hospitalization * Patient/family understanding of the current medical problems * Patient/family understanding of prognosis * Patients goals of care as best understood from advance directives and/or conversations and/or values * Current medical treatment options and benefits/burdens of those options * Likely scenarios comparing ongoing aggressive care with a transition to comfort measures only * Questions answered to the best of my ability * Palliative care contact information provided Assessment and Plan Disease Oriented Problem List: (1) HIV (human immunodeficiency virus infection) (2) Hypophosphatemia (3) Nephrolithiasis (4) Hypokalemia (5) UTI (lower urinary tract infection) (6) Sepsis (7) Anemia (8) Acidosis (9) Malnourished Symptom Scale: (1) Pain 0-10 Scale: 6 Comment: Degenerative joint disease to bilateral shoulders and hips; nephrolithiasis (2) Fatigue 0-10 Scale: 8 Comment: Malnourishment with electrolyte imbalance; bedridden status (3) Anorexia 0-10 Scale: 8 Comment: Small bowel ileus and UTI sepsis (4) Debility 0-10 Scale: 8 Comment: Long-term bed to wheelchair status with protein calorie undernutrition , anorexia, HIV status Pertinent Non-Medical Issues Psychosocial: She has no designated POA or health care surrogate. She told her sister Darleen. She was her own POA Spiritual: Protestant Legal: Ethical issues impacting care: For the most part she appears somewhat cognitively intact, however, at this time she is recovering from a sepsis as well as dealing with electrolyte imbalances, which may be impacting her cognitive state May benefit from input of other family members and decision making. Important Contacts Her sister Darleen is her closest relative. However, she is not her health care surrogate telephone [phone] . Prognosis Unable to determine at this time; she is declining with immunocompromise from HIV; she also has been experiencing anorexia which may be due to her acute illnesses. However records do indicate that she has had protein calorie malnutrition for some time. She has a nonhealing decubiti. She is appropriate for hospice .; Code Status: No Code Plan Decision Maker: Her sister Darleen [phone], is her closest sister, however, she is not a health care surrogate, nor POA Code Status: DNR Family Discussion: Hospice consult -> is to be determined. Symptoms: Pain, fatigue, anorexia Palliative care phone number provided - will follow during hospital stay. Thank you Dr Bennett for the opportunity to participate in the care of Ms. Rain. Attestation To help prompt me to consider important information that might be impacting today's encounter and assessment, information from prior notes written by myself or my colleagues may have been "brought forward" into today's note. My signature on this note, however, is an attestation that I personally performed the exam, history, and/or decision-making noted today, and, unless otherwise indicated, the interactions with patient, family, and staff as well as the review of records all occurred today. I also attest that the listed assessment and stated plan reflect my best clinical judgment today based on the combination of historical information, prior notes, and today's exam/ interactions. When time spent is documented, it refers only to time spent today by the signer, or if indicated, combined time spent today by collaborating physician/nurse practitioner. Simran Farris Apr 12, 2016 11:24
[2016-04-12 12:00] VITALS: BP 91/51; PULSE 72; RESP 19; TEMP 97.5; O2SAT 100
--- NOTE | 2016-04-12 12:35 | HHI.PR ---
Subjective Subjective Remarks awake, oriented to self, thinks she's at SNF has no complaints refusing meds on clear liquids, eating very little no n/v no abd. distension Review of Systems Constitutional Constitutional: Weakness Constitutional Remarks 12 point ROS unreliable Vitals/Results Intake & Output 04/11/16 04/11/16 04/12/16 15:00 23:00 07:00 Intake Total 400 ml 240 ml Output Total 500 ml 500 ml 600 ml Balance -100 ml -260 ml -600 ml Intake Oral 0 ml 240 ml IV Total 400 ml Output Urine Total 500 ml 500 ml 600 ml # Bowel Movements 1 1 2 Vital Signs Vital Signs Date Time Temp Pulse Resp B/P Pulse Ox O2 Delivery O2 Flow Rate FiO2 04/12/16 08:00 98.6 76 19 95/60 99 04/12/16 04:00 97.3 67 16 93/54 100 04/12/16 00:00 97.1 82 16 109/62 100 04/11/16 20:00 98.8 83 16 101/58 100 04/11/16 16:00 96.0 64 19 121/65 100 CBC/BMP: 04/12/16 0528 04/12/16 0528 Lab Results Laboratory Tests Test 04/12/16 05:28 White Blood Count 6.6 TH/MM3 Red Blood Count 3.92 MIL/MM3 Hemoglobin 11.5 GM/DL Hematocrit 34.6 % Mean Corpuscular Volume 88.2 FL Mean Corpuscular Hemoglobin 29.2 PG Mean Corpuscular Hemoglobin 33.1 % Concent Red Cell Distribution Width 15.6 % Platelet Count 268 TH/MM3 Mean Platelet Volume 8.3 FL Sodium Level 146 MEQ/L Potassium Level 3.4 MEQ/L Chloride Level 121 MEQ/L Carbon Dioxide Level 15.6 MEQ/L Anion Gap 9 MEQ/L Blood Urea Nitrogen 3 MG/DL Creatinine 0.68 MG/DL Estimat Glomerular Filtration 105 ML/MIN Rate Random Glucose 90 MG/DL Calcium Level 7.1 MG/DL Protein Corrected Calcium 8.7 MG/DL Magnesium Level 1.7 MG/DL Total Protein 4.2 GM/DL Physical Exam General General Appearance: No Acute Distress, Malnourished Eyes Eye Exam: Pupils Equal, Pupils Reactive, Sclera White Ears & Nose Ears & Nose Exam: Nasal Mucosa [place] Throat Throat Exam: Oral Mucosa [place] & Moist Neck Neck Exam: Neck Supple, Trachea Midline Pulmonary Resp Exam: No Distress, Decreased Bases Cardiology CV Exam: Regular Gastrointestinal/Abdomen GI Exam: Soft, Non-Tender, Bowel Sounds Present, Non-Distended Musculoskeletal MS Exam: Joints Intact, Atrophy Integumentary Skin Exam: Warm, Dry Extremeties Extremities Exam: No Edema, Pedal Pulses Palpable Neurologic Neuro Exam: Alert, Awake, Speech Clear, Moving All Extremities, No Focal Deficits VTE Prophylaxis VTE Prophylaxis Meds: Heparin Assessment/Plan Problem List: (1) Sepsis (2) HIV (human immunodeficiency virus infection) (3) UTI (lower urinary tract infection) (4) Metabolic acidosis (5) Hypophosphatemia (6) Nephrolithiasis (7) Malnourished (8) Thrush (9) Leukocytosis (10) Bilateral kidney stones (11) Hypokalemia (12) Anemia (13) Acute renal insufficiency Assessment/Plan appreciate nephrology input per nephrology, poss. Fanconi syndrome secondary Tenofovir. CO2 15.6 on D5W now per nephrology Monitor sodium, Na 146 off HAART now, has been refusing. Ok per ID. Pt. to f/u with ID as OP Hypotension, BP improved, received fluid bolus on 04/10 continue with IVF appreciate ID continue with antibiotics, follow cultures UA + Ecoli repeat UA, UC < GPC, no sens change to Rocephin, pt. refusing PO meds ID reconsult to address HAART recommends to stop HAART, pt. has refused for last 3 days appreciate urology input continue with conservative management, may need lithotripsy as OP Anemia S/P PRBC 04/10 09/07 HH stable Hemoccult negative Abd. xray noted, mild ileus adv to soft diet if N/V, insert NGT poor nutritional status continue Megace OOB, PT eval Heparin for DVT prophylaxis Pepcid for GI prophylaxis Poor prognosis Pt. refusing meds, capacity to make decisions questionable. Sister is POA, was called yesterday. Has transportation issues appreciate palliative care input DC planning soon back to SNF D/W RN D/W Dr. Ames D/W pt. This patient was seen by myself and Dr. Ames, this note is written on his behalf. Problem Qualifiers (1) Sepsis: Qualified Code: A41.51 - Sepsis due to Escherichia coli (2) Leukocytosis: Qualified Code: D72.829 - Leukocytosis, unspecified type (3) Anemia: Doretha Bennett Apr 12, 2016 12:35 Doretha Bennett Apr 12, 2016 12:35
[2016-04-12] MEDS ORDERED: POTASSIUM CL 40 MEQ/30 ML LIQ UDC PO ONE (12:45)
[2016-04-12] MEDS: cefTRIAXone INJ 1,000 MG in SODIUM CHLORIDE 0.9% INJ 100 ML IV SCH (14:06)
[2016-04-12 16:00] VITALS: BP 109/59; PULSE 76; RESP 18; TEMP 96.7; O2SAT 100
--- NOTE | 2016-04-12 16:49 | HHI.NPPN ---
Subjective History of Present Illness The patient is a 65 yo AA female who presented to the hospital on 04/02 with complaints of abdominal pain, anorexia, nausea, vomiting. 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 Urology has seen the patient and as her symptoms have been improving, they have chosen a conservative approach for the present with consideration of Lithotripsy as outpatient. Repeat renal US shows resolution of hydronephrosis. She initially had an acute renal decline with SCr at 1.45 that has improved to 0.96 at consult. Her PMHx includes HIV for which she sees a local ID doctor (but cannot recall name) and mentions she has had a recent change in medications, HTN, HLD, Hypothyroidism, GERd, HSV-2. Note the patient is a poor historian. Denies any known previous hx of CKD. Does mention she has had multiple issues with kidney stones in the past and says she has seen Dr. Arambula. Has numerous chemistry imbalances with hypokalemia, acidosis, hypophosphatemia, and initially hyponatremia. Interval History Pt more alert today. Looks to be feeling better. Says she is eating and drinking more. (Linda Taylor) Review of Systems General Constitutional: Fatigue (Linda Taylor) Objective Data Data 04/11/16 04/12/16 19:00 07:00 Intake Total 400 ml 240 ml Output Total 500 ml 1100 ml Balance -100 ml -860 ml Intake Oral 0 ml 240 ml IV Total 400 ml Output Urine Total 500 ml 1100 ml # Bowel Movements 1 3 Vital Signs Date Time Temp Pulse Resp B/P Pulse Ox O2 Delivery O2 Flow Rate FiO2 04/12/16 16:00 96.7 76 18 109/59 100 04/12/16 12:00 97.5 72 19 91/51 100 04/12/16 08:00 98.6 76 19 95/60 99 04/12/16 04:00 97.3 67 16 93/54 100 04/12/16 00:00 97.1 82 16 109/62 100 04/11/16 20:00 98.8 83 16 101/58 100 (Linda Taylor) -: 04/12/16 0528 04/12/16527 Medication Review Current Medications Medications (Trade) Dose Ordered Sig/Rodolfo Route Start Time Stop Time Status Last Admin (NS Flush) 2 ml UNSCH PRN FLUSH 04/02/16 20:30 (NS Flush) 2 ml BID FLUSH 04/02/16 21:00 04/07/16 10:04 (Zofran Inj) 4 mg Q6H PRN IVP 04/02/16 20:30 04/08/16 09:56 (Senokot) 17.2 mg Q12H PRN PO 04/02/16 20:30 (Heparin Inj) 5,000 units Q12H SQ 04/02/16 21:00 04/12/16 10:05 (Narcan Inj) 0.4 mg UNSCH PRN IV 04/02/16 20:30 (Pepcid) 10 mg BID PO 04/02/16 21:00 04/12/16 10:04 (Tylenol) 650 mg Q4HR PRN PO 04/03/16 07:30 (Fosamax) 70 mg Q7D PO 04/09/16 07:00 04/09/16 07:33 (Vitamin C) 1,000 mg DAILY PO 04/03/16 09:00 04/12/16 10:04 (Lipitor) 20 mg HS PO 04/03/16 21:00 04/09/16 21:16 (Dulcolax Supp) 10 mg DAILY PRN RECTAL 04/03/16 07:30 (Tums Chew) 500 mg Q12HR CHEW 04/03/16 09:00 04/12/16 10:04 (Oscal-D 250-125) 500 mg BID PO 04/03/16 09:00 04/12/16 10:03 (Tricor) 145 mg DAILY PO 04/03/16 09:00 04/12/16 10:04 (Ferrous Sulfate) 325 mg TID PO 04/03/16 09:00 04/12/16 14:06 (Neurontin) 300 mg Q12HR PO 04/03/16 21:00 04/12/16 10:03 ([place] 5-325 Mg) 1 tab TID PO 04/03/16 09:00 04/12/16 14:06 (Xalatan 0.005% Opth Soln) 1 drop HS EACH EYE 04/03/16 21:00 04/10/16 21:00 (Synthroid) 50 mcg DAILY@0600 PO 04/03/16 08:15 04/09/16 07:33 (Imodium) 2 mg BID PRN PO 04/03/16 07:30 (Milk Of Magnesia Liq) 30 ml Q4HR PRN PO 04/03/16 07:30 (Megace Liq) 400 mg DAILY PO 04/03/16 09:00 04/12/16 10:05 (Theragran M Tab) 1 tab DAILY PO 04/03/16 09:00 04/12/16 10:03 (Miralax) 17 gm DAILY PO 04/03/16 09:00 04/10/16 08:05 (Nikia-Colace) 1 tab TID PO 04/03/16 09:00 04/08/16 17:11 (Zoloft) 25 mg DAILY PO 04/03/16 09:00 04/12/16 10:04 (Fleets Enema (Adult)) 118 ml DAILY PRN RECTAL 04/03/16 07:30 (Vitamin B12) 1,000 mcg BID PO 04/03/16 09:00 04/12/16 10:03 (Pill Splitter) 1 ea UNSCH PRN OTHER 04/03/16 08:30 Al Hydrox/Mg Hydrox/ Simethicone 30 ml 30 ml Q6H PRN PO 04/04/16 15:30 Ceftriaxone Sodium 1000 mg/ Sodium Chloride 100 ml @ 200 mls/hr Q24H IV 04/11/16 15:00 04/19/16 14:59 04/12/16 14:06 (Sodium Bicarbonate 8.4% Inj/KCl Inj/D5W 1000 ml Inj) 1,085 ml @ 75 mls/hr [id number] IV 04/11/16 18:00 04/12/16 08:58 (Linda Taylor) Physical Exam General Appearance: No Acute Distress, Malnourished (Linda Taylor) Eyes Eye Exam: Pupils Equal, Pupils Reactive, Sclera White (Linda Taylor) Ears & Nose Ears & Nose Exam: Nasal Mucosa [place] (Linda Taylor) Throat Throat Exam: Oral Mucosa [place] & Moist (Linda Taylor) Neck Neck Exam: Neck Supple, Trachea Midline (Linda Taylor) Pulmonary Resp Exam: No Distress, Decreased Bases (Linda Taylor) Cardiology CV Exam: Regular (Linda Taylor) Gastrointestinal/Abdomen GI Exam: Soft, Non-Tender, Bowel Sounds Present, Non-Distended (Linda Taylor) Musculoskeletal MS Exam: Joints Intact, Atrophy (Linda Taylor) Integumentary Skin Exam: Warm, Dry (Linda Taylor) Extremeties Extremities Exam: No Edema, Pedal Pulses Palpable (Linda Taylor) Neurologic Neuro Exam: Alert, Awake, Speech Clear, Moving All Extremities, No Focal Deficits (Linda Taylor) Assessment/Plan Problem List: (1) Acute renal insufficiency Plan: Resolved Continue on IVF for the present. Says she has been eating and drinking more. Will re-evaluate need for IVF tomorrow. (2) HIV (human immunodeficiency virus infection) Plan: Mgmt as per ID (3) Hypokalemia Plan: Urine potassium level slightly higher than it should be suggesting that there is some renal wasting of potassium. Her multiple electrolyte abnormalities is likely related to her HIV and medications. Can be exacerbated by her poor nutritional state. She is cachetic and has failure to thrive. Repletion as ordered (4) Metabolic acidosis Plan: Urine pH is now above 7.5 with administration of sodium bicarbonate suggesting wasting of bicarbonate in the urine. 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 Repletion on bicarb as ordered. Monitor. (5) Hypophosphatemia Plan: Do not believe 24-hour urine phosphate was performed. Will reorder. (6) UTI (lower urinary tract infection) Plan: Mgmt as per primary (7) Anemia Plan: Hg dropping Fe stores normal SPEP no M-spike. Defer to primary (8) Nephrolithiasis Plan: Mgmt as per urology. (Linda Taylor) Plan The exam, history, and the medical decision-making described in the above note were completed with the assistance of the PAMarcus. I reviewed and agree with the findings presented. (Laxmi Reyse MD) Problem Qualifiers (1) Anemia: Linda Taylor Apr 12, 2016 16:49 Laxmi Reyes MD Apr 13, 2016 11:16
[2016-04-12 20:00] VITALS: BP 109/65; PULSE 71; RESP 22; TEMP 98.1; O2SAT 100
[2016-04-12] MEDS: ATORVASTATIN 20 MG TAB PO SCH (20:05)
[2016-04-12] MEDS: LATANOPROST 0.005% OPHT SOLN 2.5 ML BTL EACH EYE SCH (20:05)
[2016-04-13] VITALS: BP 118/68; PULSE 72; RESP 20; TEMP 98.6; O2SAT 99
[2016-04-13 04:00] VITALS: BP 109/69; PULSE 91; RESP 20; TEMP 97.8; O2SAT 100
[2016-04-13] MEDS: LEVOTHYROXINE SODIUM 50 MCG TAB PO SCH (05:09)
[2016-04-13 06:01] LABS: BICARBONATE 16.5 MEQ/L (21.0-32.0); POTASSIUM 3.7 MEQ/L (3.5-5.1)
[2016-04-13 08:37] VITALS: BP 103/76; PULSE 101; RESP 18; TEMP 99.3; O2SAT 97
[2016-04-13] MEDS: CALCIUM CARBONATE 500 MG CHEWABLE TAB CHEW SCH ×2 (09:00→20:48)
[2016-04-13] MEDS: CYANOCOBALAMIN 1,000 MCG TAB PO SCH ×2 (09:00→20:48)
[2016-04-13] MEDS: MEGESTROL ACETATE SUSP 400 MG/10 ML CUP PO SCH (09:00)
[2016-04-13] MEDS: CALCIUM/VITAMIN D 250 MG/125 U TAB PO SCH (09:00)
[2016-04-13] MEDS: SODIUM CHLORIDE 0.9% FLUSH 5 ML FLUSH FLUSH SCH ×2 (09:00→20:48)
[2016-04-13] MEDS: ACETAMINOPHEN/HYDROcodone 325 MG/5 MG TAB PO SCH ×3 (09:00→18:00)
[2016-04-13] MEDS: MULTIVITAMINS/MINERALS THERAPEUTIC TAB PO SCH (09:00)
[2016-04-13] MEDS: DOLUTEGRAVIR SODIUM 50 MG TAB PO SCH (09:00)
[2016-04-13] MEDS: ASCORBIC ACID 500 MG TAB PO SCH (09:00)
[2016-04-13] MEDS: SERTRALINE HCL 50 MG TAB PO SCH (09:00)
[2016-04-13] MEDS: DOCUSATE SODIUM 50 MG/SENNA 8.6 MG TAB PO SCH ×3 (09:00→18:00)
[2016-04-13] MEDS: FAMOTIDINE 20 MG TAB PO SCH ×2 (09:00→20:48)
[2016-04-13] MEDS: POLYETHYLENE GLYCOL 17 GM PKG PO SCH (09:00)
[2016-04-13] MEDS: GABAPENTIN 300 MG CAP PO SCH ×2 (09:00→20:48)
[2016-04-13] MEDS: FERROUS SULFATE 325 MG (65 MG ELEMENTAL IRON) TAB PO SCH ×3 (09:00→18:00)
[2016-04-13] MEDS: FENOFIBRATE 145 MG TAB PO SCH (09:00)
--- NOTE | 2016-04-13 11:18 | HHI.NPPN ---
Subjective History of Present Illness The patient is a 65 yo AA female who presented to the hospital on 04/02 with complaints of abdominal pain, anorexia, nausea, vomiting. 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 Urology has seen the patient and as her symptoms have been improving, they have chosen a conservative approach for the present with consideration of Lithotripsy as outpatient. Repeat renal US shows resolution of hydronephrosis. She initially had an acute renal decline with SCr at 1.45 that has improved to 0.96 at consult. Her PMHx includes HIV for which she sees a local ID doctor (but cannot recall name) and mentions she has had a recent change in medications, HTN, HLD, Hypothyroidism, GERd, HSV-2. Note the patient is a poor historian. Denies any known previous hx of CKD. Does mention she has had multiple issues with kidney stones in the past and says she has seen Dr. Arambula. Has numerous chemistry imbalances with hypokalemia, acidosis, hypophosphatemia, and initially hyponatremia. Interval History Patient indicated that she still has a poor appetite on questioning. Otherwise no verbal complaints. Review of Systems General Constitutional: Fatigue Objective Data Data 04/12/16 04/13/16 19:00 07:00 Intake Total 2170 ml 300 ml Output Total 1375 ml 900 ml Balance 795 ml -600 ml Intake Oral 200 ml 300 ml IV Total 1970 ml Output Urine Total 1375 ml 900 ml # Bowel Movements 2 1 Vital Signs Date Time Temp Pulse Resp B/P Pulse Ox O2 Delivery O2 Flow Rate FiO2 04/13/16 08:37 99.3 101 18 103/76 97 04/13/16 04:00 97.8 91 20 109/69 100 04/13/16 00:00 98.6 72 20 118/68 99 04/12/16 20:00 98.1 71 22 109/65 100 04/12/16 16:00 96.7 76 18 109/59 100 04/12/16 12:00 97.5 72 19 91/51 100 -: 04/12/16 0528 04/13/16 0456 Physical Exam General Appearance: No Acute Distress, Malnourished Eyes Eye Exam: Pupils Equal, Pupils Reactive, Sclera White Ears & Nose Ears & Nose Exam: Nasal Mucosa [place] Throat Throat Exam: Oral Mucosa [place] & Moist Neck Neck Exam: Neck Supple, Trachea Midline Pulmonary Resp Exam: No Distress, Decreased Bases Cardiology CV Exam: Regular Gastrointestinal/Abdomen GI Exam: Soft, Non-Tender, Bowel Sounds Present, Non-Distended Musculoskeletal MS Exam: Joints Intact, Atrophy Integumentary Skin Exam: Warm, Dry Extremeties Extremities Exam: No Edema, Pedal Pulses Palpable Neurologic Neuro Exam: Alert, Awake, Speech Clear, Moving All Extremities, No Focal Deficits Assessment/Plan Problem List: (1) Acute renal insufficiency Plan: Resolved Continue on IVF for the present. (2) HIV (human immunodeficiency virus infection) Plan: Mgmt as per ID (3) Hypokalemia Plan: Urine potassium level slightly higher than it should be suggesting that there is some renal wasting of potassium. Her multiple electrolyte abnormalities is likely related to her HIV and medications. Can be exacerbated by her poor nutritional state. She is cachetic and has failure to thrive. Repletion as ordered (4) Metabolic acidosis Plan: Urine pH is now above 7.5 with administration of sodium bicarbonate suggesting wasting of bicarbonate in the urine. 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 Repletion on bicarb as ordered. Monitor. (5) Hypophosphatemia Plan: Parental phosphate replacement and by mouth phosphate replacement subsequently as ordered. Urinary studies still pending. Hypophosphatemia suspected to be related to poor nutritional intake with associated urinary wasting of phosphate secondary to medication induced Fanconi syndrome. Patient now off HIV medications. Continue to monitor. (6) UTI (lower urinary tract infection) Plan: Mgmt as per primary (7) Nephrolithiasis Plan: Mgmt as per urology. Plan The exam, history, and the medical decision-making described in the above note were completed with the assistance of the MARY. I reviewed and agree with the findings presented. Laxmi Reyes MD Apr 13, 2016 11:18
[2016-04-13] MEDS ORDERED: POTASSIUM PHOSPHATE IV ONE (12:00)
[2016-04-13] MEDS ORDERED: SODIUM CHLORIDE 0.9% IV ONE (12:00)
[2016-04-13] MEDS: HEPARIN SODIUM - SQ 10,000 UNITS/ML VIAL SQ SCH ×2 (12:21→22:05)
[2016-04-13] MEDS: ONDANSETRON HCL 4 MG/2 ML VIAL IVP PRN (12:27)
[2016-04-13 12:48] VITALS: BP 101/76; PULSE 94; RESP 18; TEMP 96.4; O2SAT 96
--- NOTE | 2016-04-13 14:02 | HHI.PR ---
Subjective Subjective Remarks awake, oriented to self, thinks she's at SNF has no complaints refusing meds not eating much weak, c/o being cold no fever Review of Systems Constitutional Constitutional: Weakness Constitutional Remarks 12 point ROS unreliable Vitals/Results Intake & Output 04/12/16 04/12/16 04/13/16 15:00 23:00 07:00 Intake Total 2170 ml 240 ml 60 ml Output Total 1375 ml 200 ml 700 ml Balance 795 ml 40 ml -640 ml Intake Oral 200 ml 240 ml 60 ml IV Total 1970 ml Output Urine Total 1375 ml 200 ml 700 ml # Bowel Movements 2 1 0 Vital Signs Vital Signs Date Time Temp Pulse Resp B/P Pulse Ox O2 Delivery O2 Flow Rate FiO2 04/13/16 12:48 96.4 94 18 101/76 96 04/13/16 08:37 99.3 101 18 103/76 97 04/13/16 04:00 97.8 91 20 109/69 100 04/13/16 00:00 98.6 72 20 118/68 99 04/12/16 20:00 98.1 71 22 109/65 100 04/12/16 16:00 96.7 76 18 109/59 100 CBC/BMP: 04/12/16 0528 04/13/16 0456 Lab Results Laboratory Tests Test 04/13/16 04:56 Sodium Level 146 MEQ/L Potassium Level 3.7 MEQ/L Chloride Level 120 MEQ/L Carbon Dioxide Level 16.5 MEQ/L Anion Gap 10 MEQ/L Blood Urea Nitrogen 1 MG/DL Creatinine 0.54 MG/DL Estimat Glomerular Filtration 137 ML/MIN Rate Random Glucose 76 MG/DL Calcium Level 7.9 MG/DL Phosphorus Level 1.0 MG/DL Albumin 1.6 GM/DL Physical Exam General General Appearance: No Acute Distress, Malnourished Eyes Eye Exam: Pupils Equal, Pupils Reactive, Sclera White Ears & Nose Ears & Nose Exam: Nasal Mucosa [place] Throat Throat Exam: Oral Mucosa [place] & Moist Neck Neck Exam: Neck Supple, Trachea Midline Pulmonary Resp Exam: No Distress, Decreased Bases Cardiology CV Exam: Regular Gastrointestinal/Abdomen GI Exam: Soft, Non-Tender, Bowel Sounds Present, Non-Distended Musculoskeletal MS Exam: Joints Intact, Atrophy Integumentary Skin Exam: Warm, Dry Extremeties Extremities Exam: No Edema, Pedal Pulses Palpable Neurologic Neuro Exam: Alert, Awake, Speech Clear, Moving All Extremities, No Focal Deficits VTE Prophylaxis VTE Prophylaxis Meds: Heparin Assessment/Plan Problem List: (1) Sepsis (2) HIV (human immunodeficiency virus infection) (3) UTI (lower urinary tract infection) (4) Metabolic acidosis (5) Hypophosphatemia (6) Nephrolithiasis (7) Malnourished (8) Thrush (9) Leukocytosis (10) Bilateral kidney stones (11) Hypokalemia (12) Anemia (13) Acute renal insufficiency Assessment/Plan appreciate nephrology input per nephrology, poss. Fanconi syndrome secondary Tenofovir. CO2 16.5 on D5W now per nephrology Monitor sodium, Na 146 Phos replacement per renal off HAART now, has been refusing. Ok per ID. Pt. to f/u with ID as OP Hypotension, BP improved, received fluid bolus on 04/10 continue with IVF appreciate ID continue with antibiotics, follow cultures UA + Ecoli repeat UA, UC < GPC, no sens change to Rocephin, pt. refusing PO meds ID reconsult to address HAART recommends to stop HAART, pt. has refused for last 3 days appreciate urology input continue with conservative management, may need lithotripsy as OP Anemia S/P PRBC 04/10 09/07 HH stable Hemoccult negative Abd. xray noted, mild ileus adv to soft diet-tolerating well if N/V, insert NGT poor nutritional status continue Megace OOB, PT eval Heparin for DVT prophylaxis Pepcid for GI prophylaxis Poor prognosis Pt. refusing meds, capacity to make decisions questionable. Sister is not HCS appreciate palliative care input, pt now DNR. Pt. is appropriate for hospice DC planning soon back to SNF with hospice if pt. agreeable. Making very little progress D/W RN D/W Dr. Ames D/W pt. This patient was seen by myself and Dr. Ames, this note is written on his behalf. Problem Qualifiers (1) Sepsis: Qualified Code: A41.51 - Sepsis due to Escherichia coli (2) Leukocytosis: Qualified Code: D72.829 - Leukocytosis, unspecified type (3) Anemia: Doretha Bennett Apr 13, 2016 14:01
--- NOTE | 2016-04-13 16:16 | HHI.HCPN ---
Reason for visit a. To assist with evaluation and management of symptoms including: pain, debility, GOC b. To assist medical decision maker(s) with: better understanding of current medical conditions; weighing benefits/burdens of medical treatment options; making medical treatment decisions. Subjective/Interval History Ms Rain is awake and alert today. States she is feeling somewhat better. She has no pain if she is not moving, but is painful w repositioning. She has DJD shoulders and hips with very limited ROM to her knees. . She tells me she is hungry, but when asked what she wants to eat, her response is "nothing". She has a resolving small bowel ileus and her diet has been upgraded to a soft regular diet. She refused to take her medications this morning. When I asked her why, she indicated they were "hard" to swallow. She has multiple medications ordered including 3 HAARTs. In attempting to further clarify GOC, I discussed attaining a HCS. She "wanted to think about it" . She indicates she would want her sister Mirian to be that decision maker, but would not sign the HCS document today. She also stated she sister has too much going on and "wouldn't want to put that on her". I explained that without a clear directive, the decision making would be shared among her siblings. She commented that we would have to find them first. She indicated that Mirian has always been there for her. I clarified that [facility] did not have a clear designated HCS or POA - only her DNR. I again reviewed / discussed if she would want to have hospice care. She again repeated that she had "already signed those papers"- they were not completed. In further discussion about enrolling in hospice the benefits being that she would not need to take all her medications, would be allowed comfort measures and would not need to come back to the hospital, but would receive care at [facility], she indicated she wanted to think about it. She stated that she has seen a lot of her friends while at [facility]. Discussed her refusal of medications and lack of eating as an indicator future illness and earlier . She is immunocompromised from the HIV. She thought the HIV "was gone". I explained that the medications kept it under control but it was not cured. Discussed that with lack of adequate nutrition and hydration she would end up back in the hospital with bigger infections. She remained with a flat affect and again indicated that she wanted to think about it. Patient has a history of HIV, and mood disorder. 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 Advance Directives Living Will: Never completed Health Care Surrogate: Never completed (her sister's Darleen has been a vocal advocate for her, but is not designated as HCS) Durable Power of Care Navigator: Never completed Advance Directive Specifics Health Care Surrogate(s): No HCS appointed. Significant change in goals: She is vacillating in [facility] stating one thing one day - and something different the next day. She is not committal to anything at this point Objective Vital Signs Date Time Temp Pulse Resp B/P Pulse Ox O2 Delivery O2 Flow Rate FiO2 04/13/16 12:48 96.4 94 18 101/76 96 04/13/16 08:37 99.3 101 18 103/76 97 04/13/16 04:00 97.8 91 20 109/69 100 04/13/16 00:00 98.6 72 20 118/68 99 04/12/16 20:00 98.1 71 22 109/65 100 04/12/16 16:00 96.7 76 18 109/59 100 Intake & Output 04/13/16 04/13/16 07:00 19:00 Intake Total 300 ml Output Total 900 ml Balance -600 ml Intake Oral 300 ml Output Urine Total 900 ml # Bowel Movements 1 Physical Exam CONSTITUTIONAL/GENERAL: This is thin, female, in no apparent distress. TUBES/LINES/DRAINS: Oakes catheter, IV lines SKIN: She has a large decubitus to her buttocks that is full-thickness. No jaundice, rashes, or lesions. Skin temperature appropriate. Not diaphoretic. HEAD: Atraumatic. Normocephalic. EYES: Pupils equal and round and reactive. Extraocular motions intact. No scleral icterus. No injection or drainage. Fundi not examined. ENT: Hearing grossly normal. Nose without bleeding or purulent drainage. Throat without visible erythema, exudates, masses, or lesions. She has no upper teeth and has lost all of her lower molars NECK: Trachea midline. Supple, nontender. No palpable thyroid enlargement or nodularity. CARDIOVASCULAR: Regular rate and rhythm without murmurs, gallops, or rubs. No JVD. Peripheral pulses symmetric. RESPIRATORY/CHEST: Symmetric, unlabored respirations. Clear to auscultation. Breath sounds equal bilaterally. No wheezes, rales, or rhonchi. GASTROINTESTINAL: Abdomen soft, non-tender, nondistended. No hepato-splenomegaly , or palpable masses. No guarding. Bowel sounds present. GENITOURINARY: Without palpable bladder distension. Oakes catheter in place. MUSCULOSKELETAL: Extremities without clubbing, cyanosis, or edema. She is very stiff in her knees with very limited range of motion. No calf tenderness. No mottling or clubbing. LYMPHATICS: No palpable cervical or supraclavicular adenopathy. NEUROLOGICAL: Awake and alert to self, place, Motor and sensory are within normal limits. Follows commands to the ability of her limitations. Limited movement to extremities due to musculoskeletal issues. PSYCHIATRIC: Cognitively clear today, but non-committal to decisions. Her thought process is slow, yet at times she is quite clear in expressing her goals and needs.No obvious anxiety/depression. no apparent hallucinations or other psychotic thought process. Diagnostic Tests Laboratory Laboratory Tests Test 04/06/16 04/10/16 04/10/16 04/11/16 07:15 15:20 15:24 05:30 Albumin/Globulin Ratio 0.96 Osrle-3-Gpoudqszs 0.27 GM/DL Ygcen-3-Rfoplcohi 0.62 GM/DL Beta Globulins 0.50 GM/DL Gamma Globulins 0.91 GM/DL Electrophoresis Pathologist Comment Antibody Screen NEGATIVE Crossmatch Leukocyte-Reduced Red Blood Cells Blood Bank Comment Blood Type O POSITIVE Neutrophils (%) (Auto) 49.5 % Lymphocytes (%) (Auto) 40.8 % Monocytes (%) (Auto) 8.6 % Eosinophils (%) (Auto) 0.5 % Basophils (%) (Auto) 0.6 % Neutrophils # (Auto) 3.0 TH/MM3 Lymphocytes # (Auto) 2.5 TH/MM3 Monocytes # (Auto) 0.5 TH/MM3 Eosinophils # (Auto) 0.0 TH/MM3 Basophils # (Auto) 0.0 TH/MM3 CBC Comment DIFF FINAL Differential Comment Test 04/12/16 04/13/16 05:28 04:56 White Blood Count 6.6 TH/MM3 Red Blood Count 3.92 MIL/MM3 Hemoglobin 11.5 GM/DL Hematocrit 34.6 % Mean Corpuscular Volume 88.2 FL Mean Corpuscular Hemoglobin 29.2 PG Mean Corpuscular Hemoglobin 33.1 % Concent Red Cell Distribution Width 15.6 % Platelet Count 268 TH/MM3 Mean Platelet Volume 8.3 FL Protein Corrected Calcium 8.7 MG/DL Magnesium Level 1.7 MG/DL Total Protein 4.2 GM/DL Sodium Level 146 MEQ/L Potassium Level 3.7 MEQ/L Chloride Level 120 MEQ/L Carbon Dioxide Level 16.5 MEQ/L Anion Gap 10 MEQ/L Blood Urea Nitrogen 1 MG/DL Creatinine 0.54 MG/DL Estimat Glomerular Filtration 137 ML/MIN Rate Random Glucose 76 MG/DL Calcium Level 7.9 MG/DL Phosphorus Level 1.0 MG/DL Albumin 1.6 GM/DL Result Diagram: 04/12/16 0528 04/13/16 0456 Microbiology Microbiology Date/Time Procedure Status Source Growth 04/11/16 06:25 Stool Occult Blood ([facility]) - Final Complete Stool Stool HEMOCCULT NEGATIVE Assessment and Plan Disease Oriented Problem List: (1) HIV (human immunodeficiency virus infection) (2) Malnourished Comment: Protein calorie malnourishment (3) Sepsis Comment: e. coli UTI. Immunocompromised due to HIV (4) UTI (lower urinary tract infection) (5) Hypophosphatemia (6) Hypokalemia (7) Anemia (8) Acidosis (9) Nephrolithiasis Symptom Scale: (1) Pain 0-10 Scale: 5 Comment: DJD to bilateral shoulders and hips;. Not painful unless moved. Refusing scheduled pain meds (2) Fatigue 0-10 Scale: Unable to quantify Comment: Malnourishment with electrolyte imbalance; bedridden status (3) Anorexia 0-10 Scale: 8 Comment: Stares she is hungry, but doesn't want to eat. Resolving Small bowel ileus and UTI sepsis (4) Debility 0-10 Scale: 8 Comment: Long-term bed to wheelchair status with protein calorie undernutrition , anorexia, HIV status Pertinent Non-Medical Issues Psychosocial: She has no designated POA or health care surrogate. She told her sister Darleen. She was her own POA Spiritual: [place] Legal: Ethical issues impacting care: For the most part she appears cognitively intact , however, at this time she is recovering from a sepsis as well as dealing with electrolyte imbalances, which may be impacting her cognitive state May benefit from input of other family members and decision making. Today she is non-committal to [facility] Important Contacts Her sister Darleen is her closest relative. However, she is not her HCS/POA telephone [phone] . Prognosis Fair - she is declining with immunocompromise from HIV; she also has been experiencing anorexia which may be due to her acute illnesses. However records do indicate that she has had protein calorie malnutrition for some time. She has a nonhealing decubiti. She would be appropriate for hospice, but is non- committal and " wants to think about it" .; Code Status: No Code Plan Decision Maker: No written HCS or POA: She verbally appoints her sister Darleen [phone], is her closest sister, Code Status: DNR Family Discussion: Hospice consult -> is to be determined.She is non committal Symptoms: Pain, fatigue, anorexia Palliative care phone number provided - will follow during hospital stay. Attestation To help prompt me to consider important information that might be impacting today's encounter and assessment, information from prior notes written by myself or my colleagues may have been "brought forward" into today's note. My signature on this note, however, is an attestation that I personally performed the exam, history, and/or decision-making noted today, and, unless otherwise indicated, the interactions with patient, family, and staff as well as the review of records all occurred today. I also attest that the listed assessment and stated plan reflect my best clinical judgment today based on the combination of historical information, prior notes, and today's exam/ interactions. When time spent is documented, it refers only to time spent today by the signer, or if indicated, combined time spent today by collaborating physician/nurse practitioner. Simran Farris Apr 13, 2016 16:16 Simran Farris Apr 13, 2016 16:16
[2016-04-13 17:26] VITALS: BP 114/74; PULSE 78; RESP 18; TEMP 97.7; O2SAT 95
[2016-04-13] MEDS: DEXTROSE 5% IV SCH ×3 (18:23)
[2016-04-13] MEDS: POTASSIUM CHLORIDE IV SCH ×3 (18:23)
[2016-04-13] MEDS: [UNRECOGNIZED DRUG - OTHER] IV SCH ×3 (18:23)
[2016-04-13] MEDS: SODIUM BICARBONATE IV SCH ×3 (18:23)
[2016-04-13] MEDS: cefTRIAXone INJ 1,000 MG in SODIUM CHLORIDE 0.9% INJ 100 ML IV SCH (18:23)
[2016-04-13 20:00] VITALS: BP 109/61; PULSE 83; RESP 20; TEMP 97.8; O2SAT 98
[2016-04-13] MEDS: ATORVASTATIN 20 MG TAB PO SCH (20:48)
[2016-04-13] MEDS: LATANOPROST 0.005% OPHT SOLN 2.5 ML BTL EACH EYE SCH (20:48)
[2016-04-13] MEDS ORDERED: POTASSIUM PHOSPHATE/SODIUM PHOSPHATE 250 MG TAB PO SCH (21:00)
[2016-04-14] VITALS: BP 118/68; PULSE 76; RESP 18; TEMP 98.3; O2SAT 99
[2016-04-14 04:18] LABS: BICARBONATE 19.3 MEQ/L (21.0-32.0); POTASSIUM 3.7 MEQ/L (3.5-5.1)
[2016-04-14] MEDS: LEVOTHYROXINE SODIUM 50 MCG TAB PO SCH (04:49)
[2016-04-14 05:36] LABS: PHOSPHORUS CONCENTRATION 26.8 mg/dL (())
[2016-04-14 08:00] VITALS: BP 105/71; PULSE 83; RESP 16; TEMP 98.9; O2SAT 100
[2016-04-14] MEDS: FERROUS SULFATE 325 MG (65 MG ELEMENTAL IRON) TAB PO SCH ×3 (09:00→16:32)
[2016-04-14] MEDS: POTASSIUM PHOSPHATE MONOBASIC 500 MG TAB PO SCH ×2 (09:00→20:44)
[2016-04-14] MEDS: GABAPENTIN 300 MG CAP PO SCH ×2 (09:00→20:44)
[2016-04-14] MEDS: FAMOTIDINE 20 MG TAB PO SCH ×2 (09:00→20:44)
[2016-04-14] MEDS: CYANOCOBALAMIN 1,000 MCG TAB PO SCH ×2 (09:00→20:44)
[2016-04-14] MEDS: MULTIVITAMINS/MINERALS THERAPEUTIC TAB PO SCH (09:00)
[2016-04-14] MEDS: SODIUM CHLORIDE 0.9% FLUSH 5 ML FLUSH FLUSH SCH ×2 (09:00→20:46)
[2016-04-14] MEDS: ASCORBIC ACID 500 MG TAB PO SCH (09:00)
[2016-04-14] MEDS: DOCUSATE SODIUM 50 MG/SENNA 8.6 MG TAB PO SCH ×3 (09:00→16:33)
[2016-04-14] MEDS: FENOFIBRATE 145 MG TAB PO SCH (09:00)
[2016-04-14] MEDS: DOLUTEGRAVIR SODIUM 50 MG TAB PO SCH (09:00)
[2016-04-14] MEDS: SERTRALINE HCL 50 MG TAB PO SCH (09:00)
[2016-04-14] MEDS: MEGESTROL ACETATE SUSP 400 MG/10 ML CUP PO SCH (09:00)
[2016-04-14] MEDS: POLYETHYLENE GLYCOL 17 GM PKG PO SCH (09:00)
[2016-04-14] MEDS: HEPARIN SODIUM - SQ 10,000 UNITS/ML VIAL SQ SCH ×2 (09:17→20:45)
[2016-04-14] MEDS: ACETAMINOPHEN/HYDROcodone 325 MG/5 MG TAB PO SCH ×3 (09:17→16:32)
[2016-04-14] MEDS: CALCIUM CARBONATE 500 MG CHEWABLE TAB CHEW SCH ×2 (09:17→20:44)
[2016-04-14] MEDS: [UNRECOGNIZED DRUG - OTHER] IV SCH ×6 (09:18→22:12)
[2016-04-14] MEDS: POTASSIUM CHLORIDE IV SCH ×6 (09:18→22:12)
[2016-04-14] MEDS: DEXTROSE 5% IV SCH ×6 (09:18→22:12)
[2016-04-14] MEDS: SODIUM BICARBONATE IV SCH ×6 (09:18→22:12)
--- NOTE | 2016-04-14 11:28 | HHI.NPPN ---
Subjective History of Present Illness The patient is a 65 yo AA female who presented to the hospital on 04/02 with complaints of abdominal pain, anorexia, nausea, vomiting. 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 Urology has seen the patient and as her symptoms have been improving, they have chosen a conservative approach for the present with consideration of Lithotripsy as outpatient. Repeat renal US shows resolution of hydronephrosis. She initially had an acute renal decline with SCr at 1.45 that has improved to 0.96 at consult. Her PMHx includes HIV for which she sees a local ID doctor (but cannot recall name) and mentions she has had a recent change in medications, HTN, HLD, Hypothyroidism, GERd, HSV-2. Note the patient is a poor historian. Denies any known previous hx of CKD. Does mention she has had multiple issues with kidney stones in the past and says she has seen Dr. Arambula. Has numerous chemistry imbalances with hypokalemia, acidosis, hypophosphatemia, and initially hyponatremia. Interval History The patient is refusing medications again. Endorses poor appetite. When asked why she is refusing medication states "I don't feel like taking it" Review of Systems General Constitutional: Fatigue Objective Data Data 04/13/16 04/14/16 19:00 07:00 Intake Total 760 ml Output Total 600 ml 1500 ml Balance -600 ml -740 ml Intake Oral 60 ml IV Total 700 ml Output Urine Total 600 ml 1500 ml # Bowel Movements 2 1 Vital Signs Date Time Temp Pulse Resp B/P Pulse Ox O2 Delivery O2 Flow Rate FiO2 04/14/16 00:00 98.3 76 18 118/68 99 04/13/16 20:00 97.8 83 20 109/61 98 04/13/16 17:26 97.7 78 18 114/74 95 04/13/16 12:48 96.4 94 18 101/76 96 -: 04/12/16 0528 04/14/16 0339 Medication Review Current Medications Medications (Trade) Dose Ordered Sig/Rodolfo Route Start Time Stop Time Status Last Admin (NS Flush) 2 ml UNSCH PRN FLUSH 04/02/16 20:30 (NS Flush) 2 ml BID FLUSH 04/02/16 21:00 04/13/16 20:48 (Zofran Inj) 4 mg Q6H PRN IVP 04/02/16 20:30 04/13/16 12:27 (Senokot) 17.2 mg Q12H PRN PO 04/02/16 20:30 (Heparin Inj) 5,000 units Q12H SQ 04/02/16 21:00 04/14/16 09:17 (Narcan Inj) 0.4 mg UNSCH PRN IV 04/02/16 20:30 (Pepcid) 10 mg BID PO 04/02/16 21:00 04/12/16 10:04 (Tylenol) 650 mg Q4HR PRN PO 04/03/16 07:30 (Fosamax) 70 mg Q7D PO 04/09/16 07:00 04/09/16 07:33 (Vitamin C) 1,000 mg DAILY PO 04/03/16 09:00 04/12/16 10:04 (Lipitor) 20 mg HS PO 04/03/16 21:00 04/09/16 21:16 (Dulcolax Supp) 10 mg DAILY PRN RECTAL 04/03/16 07:30 (Tums Chew) 500 mg Q12HR CHEW 04/03/16 09:00 04/14/16 09:17 (Tricor) 145 mg DAILY PO 04/03/16 09:00 04/12/16 10:04 (Ferrous Sulfate) 325 mg TID PO 04/03/16 09:00 04/12/16 14:06 (Neurontin) 300 mg Q12HR PO 04/03/16 21:00 04/12/16 10:03 ([place] 5-325 Mg) 1 tab TID PO 04/03/16 09:00 04/14/16 09:17 (Xalatan 0.005% Opth Soln) 1 drop HS EACH EYE 04/03/16 21:00 04/10/16 21:00 (Synthroid) 50 mcg DAILY@0600 PO 04/03/16 08:15 04/09/16 07:33 (Imodium) 2 mg BID PRN PO 04/03/16 07:30 04/13/16 18:24 (Milk Of Magnesia Liq) 30 ml Q4HR PRN PO 04/03/16 07:30 (Megace Liq) 400 mg DAILY PO 04/03/16 09:00 04/12/16 10:05 (Theragran M Tab) 1 tab DAILY PO 04/03/16 09:00 04/12/16 10:03 (Miralax) 17 gm DAILY PO 04/03/16 09:00 04/10/16 08:05 (Nikia-Colace) 1 tab TID PO 04/03/16 09:00 04/08/16 17:11 (Zoloft) 25 mg DAILY PO 04/03/16 09:00 04/12/16 10:04 (Fleets Enema (Adult)) 118 ml DAILY PRN RECTAL 04/03/16 07:30 (Vitamin B12) 1,000 mcg BID PO 04/03/16 09:00 04/12/16 10:03 (Pill Splitter) 1 ea UNSCH PRN OTHER 04/03/16 08:30 Al Hydrox/Mg Hydrox/ Simethicone 30 ml 30 ml Q6H PRN PO 04/04/16 15:30 Ceftriaxone Sodium 1000 mg/ Sodium Chloride 100 ml @ 200 mls/hr Q24H IV 04/11/16 15:00 04/19/16 14:59 04/13/16 18:23 (Sodium Bicarbonate 8.4% Inj/KCl Inj/D5W 1000 ml Inj) 1,085 ml @ 75 mls/hr [id number] IV 04/11/16 18:00 04/14/16 09:18 (K-Phos) 250 mg BID PO 04/14/16 09:00 Physical Exam General Appearance: No Acute Distress, Malnourished Eyes Eye Exam: Pupils Equal, Pupils Reactive, Sclera White Ears & Nose Ears & Nose Exam: Nasal Mucosa Sayner Throat Throat Exam: Oral Mucosa Sayner & Moist Neck Neck Exam: Neck Supple, Trachea Midline Pulmonary Resp Exam: No Distress, Decreased Bases Cardiology CV Exam: Regular Gastrointestinal/Abdomen GI Exam: Soft, Non-Tender, Bowel Sounds Present, Non-Distended Musculoskeletal MS Exam: Joints Intact, Atrophy Integumentary Skin Exam: Warm, Dry Extremeties Extremities Exam: No Edema Neurologic Neuro Exam: Alert, Awake, No Focal Deficits Assessment/Plan Problem List: (1) Acute renal insufficiency Plan: Resolved Continue on IVF until po intake improves. Appreciate palliative care input. (2) HIV (human immunodeficiency virus infection) Plan: Mgmt as per ID (3) Hypokalemia Plan: Urine potassium level slightly higher than it should be suggesting that there is some renal wasting of potassium. Her multiple electrolyte abnormalities is likely related to her HIV and medications. Can be exacerbated by her poor nutritional state. She is cachetic and has failure to thrive. Repletion as ordered (4) Metabolic acidosis Plan: Urine pH is now above 7.5 with administration of sodium bicarbonate suggesting wasting of bicarbonate in the urine. 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 Repletion on bicarb as ordered. Monitor. (5) Hypophosphatemia Plan: Encouraged to resume po phosphate but offers little insight into this. Consider IV phos again, but this has to be used in caution as it can precipitate with calcium and produce a variety of adverse effects including hypocalcemia, renal failure, and arrhythmia. Hypophosphatemia suspected to be related to poor nutritional intake with associated urinary wasting of phosphate secondary to medication induced Fanconi syndrome. (6) UTI (lower urinary tract infection) Plan: Mgmt as per primary (7) Nephrolithiasis Plan: Mgmt as per urology. Linda Taylor Apr 14, 2016 11:28
[2016-04-14 12:00] VITALS: BP 108/72; PULSE 93; RESP 15; TEMP 98; O2SAT 100
[2016-04-14] MEDS: cefTRIAXone INJ 1,000 MG in SODIUM CHLORIDE 0.9% INJ 100 ML IV SCH (13:28)
--- NOTE | 2016-04-14 14:43 | HHI.PR ---
Subjective Subjective Remarks No facial grimace Takes part in minimal conversation Sleeping a lot . Will arouse to verbal stimuli In bed Not eating. No appetite Pale mucous membranes (Kinza Nieto) Review of Systems Constitutional Constitutional: Weakness Constitutional Remarks Limited 10 point ROS done. Minimal conversation, not participating in nutrition or care. Other systems essentially unremarkable or unable to assess ( Kinza Nieto) Psychiatric Psychiatric Remarks Withdrawn (Kinza Nieto) Endocrine Endocrine: Cold/Heat Intolerence (states she is cold) (Kinza Nieto) Allergic/Immunologic Allergic/Immunologic/Remarks HIV, chronic renal disease (Kinza Nieto) Vitals/Results Intake & Output 04/13/16 04/13/16 04/14/16 15:00 23:00 07:00 Intake Total 760 ml 0 ml Output Total 600 ml 750 ml 750 ml Balance -600 ml 10 ml -750 ml Intake Oral 60 ml 0 ml IV Total 700 ml Output Urine Total 600 ml 750 ml 750 ml # Bowel Movements 2 0 1 Vital Signs Vital Signs Date Time Temp Pulse Resp B/P Pulse Ox O2 Delivery O2 Flow Rate FiO2 04/14/16 12:00 98.0 93 15 108/72 100 04/14/16 10:17 20 04/14/16 08:00 98.9 83 16 105/71 100 04/14/16 00:00 98.3 76 18 118/68 99 04/13/16 20:00 97.8 83 20 109/61 98 04/13/16 17:26 97.7 78 18 114/74 95 (Kinza Nieto) CBC/BMP: 04/12/16 0528 04/14/16 0339 Lab Results Laboratory Tests Test 04/14/16 03:39 Sodium Level 144 MEQ/L Potassium Level 3.7 MEQ/L Chloride Level 118 MEQ/L Carbon Dioxide Level 19.3 MEQ/L Anion Gap 7 MEQ/L Blood Urea Nitrogen 2 MG/DL Creatinine 0.62 MG/DL Estimat Glomerular Filtration 117 ML/MIN Rate Random Glucose 90 MG/DL Calcium Level 8.0 MG/DL Phosphorus Level 1.2 MG/DL Albumin 1.6 GM/DL Imaging Remarks Last Impressions Abdomen X-Ray 04/10/16 0000 Signed Impressions: Service Date/Time: Sunday, April 10, 2016 16:41 - CONCLUSION: 1. Gaseous distention of multiple bowel loops which can be seen with ileus. 2. Left-sided renal calculi. Kwame Fountain MD Chest X-Ray 04/09/16 0000 Signed Impressions: Service Date/Time: Saturday, April 09, 2016 10:18 - CONCLUSION: Minimal fluid in the left base, otherwise negative. Leo Iverson MD FACR Renal Ultrasound 04/05/16 0600 Signed Impressions: Service Date/Time: March 07:52 - CONCLUSION: 1. Multiple nonobstructing calculi in the left renal collecting system, the largest measuring approximately 1.6 cm in diameter. 2. Benign-appearing renal cortical cysts in the right kidney. 3. Punctate echogenic foci in the cortex of the right kidney the junction of the upper and midpole is unchanged without shadowing and may represent a foci of renal cortical fat. 4. Increased echogenicity of the renal cortices symmetrically and bilaterally suggesting some degree of medical renal disease. 5. No significant change from prior. Manuel López MD Abdomen/Pelvis CT 04/02/16 1554 Signed Impressions: Service Date/Time: Saturday, April 02, 2016 18:41 - CONCLUSION: 1. Nonobstructing renal stones being much more numerous and larger on the left side. The central calcifications in the left kidney resemble a staghorn calculus. 2. Mild dilatation of the right collecting system and right ureter. This suggests there may have been a passed stone. A stone in the right ureter is not seen. 3. Destructive changes at the femoral heads bilaterally. These changes appear chronic. These changes could be secondary to underlying process such as prior avascular necrosis, prior trauma or prior inflammatory change including infection or inflammatory arthritis. Marquis Galo MD Current Medications Active Medications Potassium Phosphate (K-Phos) 250 mg BID PO; Start 04/14/16 at 09:00 Potassium Phos/ Sodium Phos (K-Phos Neutral) 250 mg BID PO; Start 04/13/16 at 21 :00; Stop 04/14/16 at 08:33; Status DC (Kinza Nieto) Physical Exam General General Appearance: No Acute Distress, Malnourished Appearance Remarks At rest (Gerson,Kinza M. RN NAVIGATOR) Eyes Eye Exam: Pupils Equal, Pupils Reactive, Sclera White (Flatwoods,Kinza M. RN NAVIGATOR) Ears & Nose Ears & Nose Exam: Nasal Mucosa [place] (pale mucous membranes) (GersonKinza M. RN NAVIGATOR) Throat Throat Exam: Oral Mucosa [place] & Moist (pale mucous membranes) (GersonKinza M. RN NAVIGATOR) Neck Neck Exam: Neck Supple, Trachea Midline (Fl[place]woods,Kinza M. RN NAVIGATOR) Pulmonary Resp Exam: No Distress, Decreased Bases (Gerson,Kinza M. RN NAVIGATOR) Cardiology CV Exam: Regular (FlatwoodsKinza M. RN NAVIGATOR) Gastrointestinal/Abdomen GI Exam: Soft, Non-Tender, Bowel Sounds Present, Non-Distended GI Remarks We will complain of abdominal pain every once in a while. Taking minimal amounts of medications if any. ([place]woods,Kinza M. RN NAVIGATOR) Musculoskeletal MS Exam: Joints Intact, Atrophy (Gerson,Kinza M. RN NAVIGATOR) Integumentary Skin Exam: Warm, Dry Skin Remarks thin skin turgor, minimal recoil (Gerson,Kinza M. RN NAVIGATOR) Extremeties Extremities Exam: No Edema (FlatwoodsKinza M. RN NAVIGATOR) Neurologic Neuro Exam: Alert, Awake, No Focal Deficits Neuro Remarks moans at times (Gerson,Kinza M. RN NAVIGATOR) VTE Prophylaxis VTE Prophylaxis Meds: Heparin (GersonKinza M. RN NAVIGATOR) Assessment/Plan Problem List: (1) Sepsis (2) HIV (human immunodeficiency virus infection) (3) UTI (lower urinary tract infection) (4) Metabolic acidosis (5) Hypophosphatemia (6) Nephrolithiasis (7) Malnourished (8) Thrush (9) Leukocytosis (10) Bilateral kidney stones (11) Hypokalemia (12) Anemia (13) Acute renal insufficiency Assessment/Plan ppreciate nephrology input per nephrology, poss. Fanconi syndrome secondary Tenofovir. CO2 16.5 on D5W now per nephrology Monitor sodium level. Phos replacement per renal off HAART now, has been refusing. Ok per ID. Pt. to f/u with ID as OP Hypotension, BP improved, received fluid bolus on 04/10 continue with IVF appreciate ID continue with antibiotics, follow cultures UA + Ecoli repeat UA, UC < GPC, no sens change to Rocephin, pt. refusing PO meds and refusing food for the most part. States she's just not hungry ID reconsult to address HAART recommends to stop HAART, pt. has refused for last 3 days appreciate urology input continue with conservative management, may need lithotripsy as OP Anemia S/P PRBC 04/10 09/07 HH stable Hemoccult negative Abd. xray noted, mild ileus Attempting liquids and or soft foods but patient is not eating. if N/V, insert NGT Still not eating. No appetite. Continues with symptoms of failure to thrive poor nutritional status continue Megace Questionable needs for PEG tube versus hospice OOB, PT eval Heparin for DVT prophylaxis Pepcid for GI prophylaxis Poor prognosis Pt. refusing meds, capacity to make decisions questionable. Sister is not HCS appreciate palliative care input, pt now DNR. Pt. is appropriate for hospice if she accepts this treatment regimen Questionable PEG versus hospice DC planning soon back to SNF with hospice if pt. agreeable. Making very little progress . Supportive care appreciate palliative care input (Kinza Nieto) Assessment/Plan patient seen and examined agree with above assessment and plan more willing today to proceed with hospice, would like to discuss with her sister consult hospice discussed with patient discussed with Kinza ZHENG (Lilia Ames MD) Problem Qualifiers (1) Sepsis: Qualified Code: A41.51 - Sepsis due to Escherichia coli (2) Leukocytosis: Qualified Code: D72.829 - Leukocytosis, unspecified type (3) Anemia: Kinza Nieto Apr 14, 2016 14:43 Lilia Ames MD Apr 14, 2016 16:05
[2016-04-14 16:00] VITALS: BP 105/75; PULSE 98; RESP 15; TEMP 98.7; O2SAT 100
[2016-04-14] MEDS: LATANOPROST 0.005% OPHT SOLN 2.5 ML BTL EACH EYE SCH (20:44)
[2016-04-14] MEDS: ATORVASTATIN 20 MG TAB PO SCH (20:44)
[2016-04-14 22:17] VITALS: BP 106/67; PULSE 89; RESP 18; TEMP 98.1; O2SAT 96
[2016-04-15 00:19] VITALS: BP 115/70; PULSE 85; RESP 20; TEMP 98.2; O2SAT 99
[2016-04-15 04:18] VITALS: BP 114/72; PULSE 88; RESP 20; TEMP 97.8; O2SAT 98
[2016-04-15] MEDS: LEVOTHYROXINE SODIUM 50 MCG TAB PO SCH (06:00)
[2016-04-15 06:59] LABS: BICARBONATE 20.4 MEQ/L (21.0-32.0); POTASSIUM 3.5 MEQ/L (3.5-5.1)
[2016-04-15 08:00] VITALS: BP 110/62; PULSE 87; RESP 20; TEMP 97.5; O2SAT 100
[2016-04-15] MEDS: [UNRECOGNIZED DRUG - OTHER] IV SCH ×3 (08:48)
[2016-04-15] MEDS: POTASSIUM CHLORIDE IV SCH ×3 (08:48)
[2016-04-15] MEDS: SODIUM BICARBONATE IV SCH ×3 (08:48)
[2016-04-15] MEDS: DEXTROSE 5% IV SCH ×3 (08:48)
[2016-04-15] MEDS: SODIUM CHLORIDE 0.9% FLUSH 5 ML FLUSH FLUSH SCH ×2 (09:00→23:18)
[2016-04-15] MEDS: DOCUSATE SODIUM 50 MG/SENNA 8.6 MG TAB PO SCH ×3 (09:00→16:41)
[2016-04-15] MEDS ORDERED: POTASSIUM PHOSPHATE INJ 30 MMOL in SODIUM CHLOR 0.9% 250 ML INJ 250 ML IV ONE (09:00)
[2016-04-15] MEDS: MULTIVITAMINS/MINERALS THERAPEUTIC TAB PO SCH (09:00)
[2016-04-15] MEDS: HEPARIN SODIUM - SQ 10,000 UNITS/ML VIAL SQ SCH ×2 (09:00→21:00)
[2016-04-15] MEDS: ACETAMINOPHEN/HYDROcodone 325 MG/5 MG TAB PO SCH ×4 (09:00→16:42)
[2016-04-15] MEDS: CYANOCOBALAMIN 1,000 MCG TAB PO SCH ×2 (09:00→21:00)
[2016-04-15] MEDS: ASCORBIC ACID 500 MG TAB PO SCH (09:00)
[2016-04-15] MEDS: FAMOTIDINE 20 MG TAB PO SCH ×2 (09:00→21:00)
[2016-04-15] MEDS: POLYETHYLENE GLYCOL 17 GM PKG PO SCH (09:00)
[2016-04-15] MEDS: DOLUTEGRAVIR SODIUM 50 MG TAB PO SCH (09:00)
[2016-04-15] MEDS: POTASSIUM PHOSPHATE MONOBASIC 500 MG TAB PO SCH ×2 (09:00→21:00)
[2016-04-15] MEDS: GABAPENTIN 300 MG CAP PO SCH ×2 (09:00→21:00)
[2016-04-15] MEDS: MEGESTROL ACETATE SUSP 400 MG/10 ML CUP PO SCH (09:00)
[2016-04-15] MEDS: CALCIUM CARBONATE 500 MG CHEWABLE TAB CHEW SCH ×3 (09:00→21:00)
[2016-04-15] MEDS: SERTRALINE HCL 50 MG TAB PO SCH (09:00)
[2016-04-15] MEDS: FERROUS SULFATE 325 MG (65 MG ELEMENTAL IRON) TAB PO SCH ×3 (09:00→16:41)
[2016-04-15] MEDS: FENOFIBRATE 145 MG TAB PO SCH (09:00)
[2016-04-15 12:00] VITALS: BP 92/50; PULSE 104; RESP 19; TEMP 96.7; O2SAT 99
--- NOTE | 2016-04-15 12:53 | HHI.PR ---
Subjective Subjective Remarks awake, oriented to self, and place not eating much nauseous and vomited some today doesn't like food refusing meds no fever when asked about hospice, she doesn't know Review of Systems Constitutional Constitutional: Weakness Constitutional Remarks 12 point ROS unreliable Endocrine Endocrine: Cold/Heat Intolerence (states she is cold) Vitals/Results Intake & Output 04/14/16 04/14/16 04/15/16 15:00 23:00 07:00 Intake Total 1606 ml 0 ml 800 ml Output Total 1325 ml 200 ml Balance 281 ml -200 ml 800 ml Intake Oral 0 ml 0 ml IV Total 1606 ml 800 ml Output Urine Total 1325 ml 200 ml # Bowel Movements 0 0 Vital Signs Vital Signs Date Time Temp Pulse Resp B/P Pulse Ox O2 Delivery O2 Flow Rate FiO2 04/15/16 08:00 97.5 87 20 110/62 100 04/15/16 04:18 97.8 88 20 114/72 98 04/15/16 00:19 98.2 85 20 115/70 99 04/14/16 22:17 98.1 89 18 106/67 96 04/14/16 16:00 98.7 98 15 105/75 100 CBC/BMP: 04/12/16 0528 04/15/16 0559 Lab Results Laboratory Tests Test 04/15/16 05:59 Sodium Level 142 MEQ/L Potassium Level 3.5 MEQ/L Chloride Level 113 MEQ/L Carbon Dioxide Level 20.4 MEQ/L Anion Gap 9 MEQ/L Blood Urea Nitrogen 2 MG/DL Creatinine 0.61 MG/DL Estimat Glomerular Filtration 119 ML/MIN Rate Random Glucose 92 MG/DL Calcium Level 7.8 MG/DL Phosphorus Level 1.0 MG/DL Albumin 1.6 GM/DL Physical Exam General General Appearance: No Acute Distress, Malnourished Eyes Eye Exam: Pupils Equal, Pupils Reactive Ears & Nose Ears & Nose Exam: Nasal Mucosa [place] Throat Throat Exam: Oral Mucosa [place] & Moist Neck Neck Exam: Neck Supple, Trachea Midline Pulmonary Resp Exam: No Distress, Decreased Bases Cardiology CV Exam: Regular Gastrointestinal/Abdomen GI Exam: Soft, Non-Tender, Bowel Sounds Present, Non-Distended Musculoskeletal MS Exam: Joints Intact, Atrophy Integumentary Skin Exam: Warm, Dry Extremeties Extremities Exam: No Edema Neurologic Neuro Exam: Alert, Awake, Speech Clear, Moving All Extremities, No Focal Deficits VTE Prophylaxis VTE Prophylaxis Meds: Heparin Assessment/Plan Problem List: (1) Sepsis (2) HIV (human immunodeficiency virus infection) (3) UTI (lower urinary tract infection) (4) Metabolic acidosis (5) Hypophosphatemia (6) Nephrolithiasis (7) Malnourished (8) Thrush (9) Leukocytosis (10) Bilateral kidney stones (11) Hypokalemia (12) Anemia (13) Acute renal insufficiency Assessment/Plan appreciate nephrology input per nephrology, poss. Fanconi syndrome secondary Tenofovir. CO2 improving on D5W now per nephrology Monitor sodium, Na 142 Kphos given today off HAART now, has been refusing. Ok per ID. Pt. to f/u with ID as OP Hypotension, BP improved, received fluid bolus on 04/10 continue with IVF appreciate ID continue with antibiotics, follow cultures UA + Ecoli repeat UA, UC < GPC, no sens change to Rocephin, pt. refusing PO meds ID reconsult to address HAART recommends to stop HAART, pt. has refused for last 3 days appreciate urology input continue with conservative management, may need lithotripsy as OP Anemia S/P PRBC 04/10 09/07 HH stable Hemoccult negative Abd. xray noted, mild ileus adv to soft diet-tolerating well if N/V, insert NGT poor nutritional status continue Megace OOB, PT eval Heparin for DVT prophylaxis Pepcid for GI prophylaxis Poor prognosis Pt. refusing meds, capacity to make decisions questionable. Sister is not HCS appreciate palliative care input, pt now DNR. Pt. is appropriate for hospice Hospice consult pending if pt. declines hospice, plan to dc to [place] today D/W RN D/W Dr. Ames D/W pt. This patient was seen by myself and Dr. Ames, this note is written on his behalf. Problem Qualifiers (1) Sepsis: Qualified Code: A41.51 - Sepsis due to Escherichia coli (2) Leukocytosis: Qualified Code: D72.829 - Leukocytosis, unspecified type (3) Anemia: Doretha Bennett Apr 15, 2016 12:53
--- NOTE | 2016-04-15 13:06 | HHI.DCPOC ---
Discharge Care Plan Diagnosis: (1) Altered mental state (2) UTI (lower urinary tract infection) (3) CKD (chronic kidney disease) stage 3, GFR 30-59 ml/min (4) Fatigue (5) Anorexia (6) Acidosis (7) Debility (8) Pain Your Health Problems Are: Difficulty with ADL Goals to Promote Your Health * To prevent worsening of your condition and complications * To maintain your health at the optimal level Directions to Meet Your Goals Take your medications as prescribed Follow your dietary instruction Follow activity as directed Keep your appointments as scheduled Take your immunizations and boosters as scheduled If your symptoms worsen call your PCP, if no PCP go to Urgent Care Center or Emergency Room Smoking is Dangerous to Your Health. Avoid second hand smoke Call the 24-hour hour crisis hotline for domestic abuse at Doretha Bennett Apr 15, 2016 13:06
[2016-04-15] MEDS: cefTRIAXone INJ 1,000 MG in SODIUM CHLORIDE 0.9% INJ 100 ML IV SCH (13:22)
[2016-04-15 16:00] VITALS: BP 106/64; PULSE 98; RESP 20; TEMP 98.2; O2SAT 98
[2016-04-15] MEDS: ONDANSETRON HCL 4 MG/2 ML VIAL IVP PRN ×2 (16:39→23:13)
[2016-04-15 20:00] VITALS: BP 105/68; PULSE 88; RESP 18; TEMP 99.2; O2SAT 99
[2016-04-15] MEDS: ATORVASTATIN 20 MG TAB PO SCH (21:00)
[2016-04-15] MEDS: LATANOPROST 0.005% OPHT SOLN 2.5 ML BTL EACH EYE SCH (21:00)
[2016-04-16] VITALS (7 sets, daily range): BP systolic 96–115; BP diastolic 62–69; PULSE 86–115; RESP 16–18; TEMP 97–98.7; O2SAT 99–100
[2016-04-16] MEDS: DEXTROSE 5% IV SCH ×6 (00:57→13:44)
[2016-04-16] MEDS: SODIUM BICARBONATE IV SCH ×6 (00:57→13:44)
[2016-04-16] MEDS: [UNRECOGNIZED DRUG - OTHER] IV SCH ×6 (00:57→13:44)
[2016-04-16] MEDS: POTASSIUM CHLORIDE IV SCH ×6 (00:57→13:44)
[2016-04-16] MEDS: LEVOTHYROXINE SODIUM 50 MCG TAB PO SCH (05:13)
[2016-04-16] MEDS: ALENDRONATE SODIUM 70 MG TAB PO SCH (05:13)
[2016-04-16] MEDS: FERROUS SULFATE 325 MG (65 MG ELEMENTAL IRON) TAB PO SCH ×4 (08:09→18:34)
[2016-04-16] MEDS: CALCIUM CARBONATE 500 MG CHEWABLE TAB CHEW SCH (08:09)
[2016-04-16] MEDS: SODIUM CHLORIDE 0.9% FLUSH 5 ML FLUSH FLUSH SCH ×2 (08:09→22:47)
[2016-04-16] MEDS: POLYETHYLENE GLYCOL 17 GM PKG PO SCH (08:10)
[2016-04-16] MEDS: GABAPENTIN 300 MG CAP PO SCH ×2 (08:10→22:46)
[2016-04-16] MEDS: FAMOTIDINE 20 MG TAB PO SCH ×2 (08:10→22:46)
[2016-04-16] MEDS: POTASSIUM PHOSPHATE MONOBASIC 500 MG TAB PO SCH ×4 (08:10→18:34)
[2016-04-16] MEDS: ACETAMINOPHEN/HYDROcodone 325 MG/5 MG TAB PO SCH ×4 (08:10→18:34)
[2016-04-16] MEDS: MEGESTROL ACETATE SUSP 400 MG/10 ML CUP PO SCH (08:10)
[2016-04-16] MEDS: CYANOCOBALAMIN 1,000 MCG TAB PO SCH ×2 (08:11→22:46)
[2016-04-16] MEDS: DOCUSATE SODIUM 50 MG/SENNA 8.6 MG TAB PO SCH ×3 (08:11→18:00)
[2016-04-16] MEDS: MULTIVITAMINS/MINERALS THERAPEUTIC TAB PO SCH (08:11)
[2016-04-16] MEDS: HEPARIN SODIUM - SQ 10,000 UNITS/ML VIAL SQ SCH ×2 (08:11→22:47)
[2016-04-16] MEDS: FENOFIBRATE 145 MG TAB PO SCH (08:11)
[2016-04-16] MEDS: SERTRALINE HCL 50 MG TAB PO SCH (08:11)
[2016-04-16] MEDS: ASCORBIC ACID 500 MG TAB PO SCH (08:11)
--- NOTE | 2016-04-16 11:48 | HHI.NPPN ---
Subjective History of Present Illness The patient is a 65 yo AA female who presented to the hospital on 04/02 with complaints of abdominal pain, anorexia, nausea, vomiting. 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 Urology has seen the patient and as her symptoms have been improving, they have chosen a conservative approach for the present with consideration of Lithotripsy as outpatient. Repeat renal US shows resolution of hydronephrosis. She initially had an acute renal decline with SCr at 1.45 that has improved to 0.96 at consult. Her PMHx includes HIV for which she sees a local ID doctor (but cannot recall name) and mentions she has had a recent change in medications, HTN, HLD, Hypothyroidism, GERd, HSV-2. Note the patient is a poor historian. Denies any known previous hx of CKD. Does mention she has had multiple issues with kidney stones in the past and says she has seen Dr. Arambula. Has numerous chemistry imbalances with hypokalemia, acidosis, hypophosphatemia, and initially hyponatremia. Interval History Patient slightly lethargic. Complaining of fatigue. Review of Systems General Constitutional: Fatigue Objective Data Data 04/15/16 04/16/16 19:00 07:00 Intake Total 230 ml 480 ml Output Total 625 ml 500 ml Balance -395 ml -20 ml Intake Oral 50 ml 480 ml IV Total 180 ml Output Urine Total 625 ml 500 ml # Voids 1 # Bowel Movements 2 1 Vital Signs Date Time Temp Pulse Resp B/P Pulse Ox O2 Delivery O2 Flow Rate FiO2 04/16/16 08:00 97.9 115 16 115/65 100 04/16/16 04:00 97.0 97 18 113/69 100 04/16/16 00:00 98.7 105 18 97/65 99 04/15/16 20:00 99.2 88 18 105/68 99 04/15/16 16:00 98.2 98 20 106/64 98 04/15/16 14:22 20 04/15/16 12:00 96.7 104 19 92/50 99 -: 04/12/16 0528 04/15/16 0559 Physical Exam General Appearance: No Acute Distress, Malnourished Eyes Eye Exam: Pupils Equal, Pupils Reactive Ears & Nose Ears & Nose Exam: Nasal Mucosa [place] Throat Throat Exam: Oral Mucosa [place] & Moist Neck Neck Exam: Neck Supple, Trachea Midline Pulmonary Resp Exam: No Distress, Decreased Bases Cardiology CV Exam: Regular Gastrointestinal/Abdomen GI Exam: Soft, Non-Tender, Bowel Sounds Present, Non-Distended Musculoskeletal MS Exam: Joints Intact, Atrophy Integumentary Skin Exam: Warm, Dry Extremeties Extremities Exam: No Edema Neurologic Neuro Exam: Alert, Awake, Speech Clear, Moving All Extremities, No Focal Deficits Assessment/Plan Problem List: (1) Acute renal insufficiency Plan: Resolved (2) HIV (human immunodeficiency virus infection) Plan: Mgmt as per ID (3) Hypokalemia Plan: Urine potassium level slightly higher than it should be suggesting that there is some renal wasting of potassium. Her multiple electrolyte abnormalities is likely related to her HIV and medications. Can be exacerbated by her poor nutritional state. She is cachetic and has failure to thrive. Repletion as ordered (4) Metabolic acidosis Plan: Urine pH is now above 7.5 with administration of sodium bicarbonate suggesting wasting of bicarbonate in the urine. 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 Serum bicarbonate improving progressively. Continue supplementation. (5) Hypophosphatemia Plan: Urinary 24-hour urine phosphorus is consistent with urinary phosphate wasting. 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 Should hopefully subsequently improved. Problem at this point in time however is that the patient has been refusing oral phosphate supplementation. Patient was advised of the importance of compliance. (6) UTI (lower urinary tract infection) Plan: Mgmt as per primary (7) Nephrolithiasis Plan: Mgmt as per urology. Plan Diagnostic process is complete. Little to add further in this patient's management except that she needs to be compliant with her oral electrolyte supplementation. Advised when necessary parenteral supplementation as indicated. We'll sign off at this point in time. Please recall if needed. Laxmi Reyes MD Apr 16, 2016 11:48
--- NOTE | 2016-04-16 14:59 | HHI.PR ---
Subjective Subjective Remarks refusing meds only taking Bypro some nausea and vomiting refusing hospice now just wants to stay in the hospital evaluated pt. with sisters in presence. They are trying to convince pt to eat. Pt. states she doesn't want to "" per CM, later sisters spoke to her about pt wanting a peg went back around 1500 to speak to pt. again, sisters had left. Pt. hesitant about peg tube "I just want to stay here" discussed need for nutrition and med compliance, if ready to refuse care, needs to consider hospice. Doesn't want to talk to hospice finally indicated she wants peg tube Review of Systems Constitutional Constitutional: Weakness Constitutional Remarks 12 point ROS unreliable Endocrine Endocrine: Cold/Heat Intolerence (states she is cold) Vitals/Results Intake & Output 04/15/16 04/15/16 04/16/16 15:00 23:00 07:00 Intake Total 230 ml 240 ml 240 ml Output Total 625 ml 250 ml 250 ml Balance -395 ml -10 ml -10 ml Intake Oral 50 ml 240 ml 240 ml IV Total 180 ml Output Urine Total 625 ml 250 ml 250 ml # Voids 1 # Bowel Movements 2 1 Vital Signs Vital Signs Date Time Temp Pulse Resp B/P Pulse Ox O2 Delivery O2 Flow Rate FiO2 04/16/16 12:00 98.2 95 16 96/62 100 04/16/16 08:00 97.9 115 16 115/65 100 04/16/16 04:00 97.0 97 18 113/69 100 04/16/16 00:00 98.7 105 18 97/65 99 04/15/16 20:00 99.2 88 18 105/68 99 04/15/16 16:00 98.2 98 20 106/64 98 CBC/BMP: 04/12/16 0528 04/15/16 0559 Physical Exam General General Appearance: No Acute Distress, Malnourished Eyes Eye Exam: Pupils Equal, Pupils Reactive Ears & Nose Ears & Nose Exam: Nasal Mucosa [place] Throat Throat Exam: Oral Mucosa [place] & Moist Neck Neck Exam: Neck Supple, Trachea Midline Pulmonary Resp Exam: No Distress, Decreased Bases Cardiology CV Exam: Regular Gastrointestinal/Abdomen GI Exam: Soft, Non-Tender, Bowel Sounds Present, Non-Distended Musculoskeletal MS Exam: Joints Intact, Atrophy Integumentary Skin Exam: Warm, Dry Extremeties Extremities Exam: No Edema Neurologic Neuro Exam: Alert, Awake, Speech Clear, Moving All Extremities, No Focal Deficits VTE Prophylaxis VTE Prophylaxis Meds: Heparin Assessment/Plan Problem List: (1) Sepsis (2) HIV (human immunodeficiency virus infection) (3) UTI (lower urinary tract infection) (4) Metabolic acidosis (5) Hypophosphatemia (6) Nephrolithiasis (7) Malnourished (8) Thrush (9) Leukocytosis (10) Bilateral kidney stones (11) Hypokalemia (12) Anemia (13) Acute renal insufficiency Assessment/Plan appreciate nephrology input per nephrology, poss. Fanconi syndrome secondary Tenofovir. CO2 improving on D5W now per nephrology Kphos ATC off HAART now, has been refusing. Ok per ID. Pt. to f/u with ID as OP renal signed off. Hypotension, BP improved, received fluid bolus on 04/10. Appears to be baseline for her continue with IVF appreciate ID continue with antibiotics, follow cultures UA + Ecoli repeat UA, UC < GPC, no sens change to Rocephin, pt. refusing PO meds ID reconsult to address HAART recommends to stop HAART, pt. has refused for last 3 days signed off appreciate urology input continue with conservative management, may need lithotripsy as OP Anemia S/P PRBC 04/10 09/07 HH stable Hemoccult negative Abd. xray noted, mild ileus adv to soft diet-tolerating well if N/V, insert NGT poor nutritional status continue Megace refusing Boost antiemetics PRN PT, OOB Heparin for DVT prophylaxis Pepcid for GI prophylaxis Poor prognosis Pt. refusing meds, capacity to make decisions questionable. Sister is not HCS appreciate palliative care input, pt now DNR. Pt. is appropriate for hospice but has refused to talk to them although she had indicated before willingness to speak to them per CM, pt. not eating, SNF will not accept pt. back D/W pt, sisters at length, pt. agreeable with Peg tube consult GI for peg tube Dietary eval for tube feeding Plan to dc Wed. if she tolerates feeding well Labs in am D/W RN D/W Dr. Ames D/W pt./sisters D/W CM This patient was seen by myself and Dr. Ames, this note is written on his behalf. Problem Qualifiers (1) Sepsis: Qualified Code: A41.51 - Sepsis due to Escherichia coli (2) Leukocytosis: Qualified Code: D72.829 - Leukocytosis, unspecified type (3) Anemia: Doretha Bennett Apr 16, 2016 14:59
[2016-04-16] MEDS: cefTRIAXone INJ 1,000 MG in SODIUM CHLORIDE 0.9% INJ 100 ML IV SCH (15:38)
[2016-04-16] MEDS: ATORVASTATIN 20 MG TAB PO SCH (22:46)
[2016-04-16] MEDS: LATANOPROST 0.005% OPHT SOLN 2.5 ML BTL EACH EYE SCH (22:50)
[2016-04-17] VITALS: BP 104/59; PULSE 93; RESP 16; TEMP 96.8; O2SAT 97
[2016-04-17 04:00] VITALS: BP 97/54; PULSE 87; RESP 16; TEMP 98.2; O2SAT 100
[2016-04-17] MEDS: [UNRECOGNIZED DRUG - OTHER] IV SCH ×9 (04:12→18:40)
[2016-04-17] MEDS: POTASSIUM CHLORIDE IV SCH ×9 (04:12→18:40)
[2016-04-17] MEDS: SODIUM BICARBONATE IV SCH ×9 (04:12→18:40)
[2016-04-17] MEDS: DEXTROSE 5% IV SCH ×9 (04:12→18:40)
[2016-04-17 05:38] LABS: HEMATOCRIT 35.7 % (35.0-46.0); MEAN CELL VOLUME 89.1 FL (80.0-100.0); MEAN CORPUSCULAR HEMOGLOBIN 29.1 PG (27.0-34.0); MEAN CORPUSCULAR HGB CONC 32.7 % (32.0-36.0); PLATELET COUNT 208 TH/MM3 (150-450); RED CELL DISTRIBUTION WIDTH 15.6 % (11.6-17.2); REVIEW FLAG FINAL
[2016-04-17] MEDS: LEVOTHYROXINE SODIUM 50 MCG TAB PO SCH (05:58)
[2016-04-17 06:01] LABS: BICARBONATE 25.7 MEQ/L (21.0-32.0)
[2016-04-17 06:15] LABS: CALCIUM-PROTEIN CORRECTED 8.7 MG/DL (8.5-10.1)
[2016-04-17 08:30] VITALS: BP 97/54; PULSE 97; RESP 16; TEMP 98.7; O2SAT 97
[2016-04-17] MEDS: SODIUM CHLORIDE 0.9% FLUSH 5 ML FLUSH FLUSH SCH ×2 (09:00→21:00)
[2016-04-17] MEDS: DOCUSATE SODIUM 50 MG/SENNA 8.6 MG TAB PO SCH ×3 (09:00→17:58)
[2016-04-17] MEDS: POLYETHYLENE GLYCOL 17 GM PKG PO SCH (09:00)
[2016-04-17] MEDS: FENOFIBRATE 145 MG TAB PO SCH (10:05)
[2016-04-17] MEDS: MEGESTROL ACETATE SUSP 400 MG/10 ML CUP PO SCH (10:05)
[2016-04-17] MEDS: FAMOTIDINE 20 MG TAB PO SCH ×2 (10:06→22:46)
[2016-04-17] MEDS: MULTIVITAMINS/MINERALS THERAPEUTIC TAB PO SCH (10:07)
[2016-04-17] MEDS: CYANOCOBALAMIN 1,000 MCG TAB PO SCH ×2 (10:07→22:46)
[2016-04-17] MEDS: ACETAMINOPHEN/HYDROcodone 325 MG/5 MG TAB PO SCH ×3 (10:07→17:58)
[2016-04-17] MEDS: FERROUS SULFATE 325 MG (65 MG ELEMENTAL IRON) TAB PO SCH ×3 (10:08→17:58)
[2016-04-17] MEDS: GABAPENTIN 300 MG CAP PO SCH ×2 (10:08→22:46)
[2016-04-17] MEDS: POTASSIUM PHOSPHATE MONOBASIC 500 MG TAB PO SCH ×4 (10:08→22:46)
[2016-04-17] MEDS: SERTRALINE HCL 50 MG TAB PO SCH (10:08)
[2016-04-17] MEDS: ASCORBIC ACID 500 MG TAB PO SCH (10:09)
[2016-04-17] MEDS: HEPARIN SODIUM - SQ 10,000 UNITS/ML VIAL SQ SCH ×2 (10:09→22:47)
--- NOTE | 2016-04-17 10:37 | HHI.HCPN ---
Reason for visit a. To assist with evaluation and management of symptoms including: pain, debility, anorexia, GOC b. To assist medical decision maker(s) with: better understanding of current medical conditions; weighing benefits/burdens of medical treatment options; making medical treatment decisions. (Simran Farris) Subjective/Interval History Ms Rain is awake and alert today. States she is feeling better. She is a bit more talkative. Orientation continues to be an issue. States date as , yet knows she is in [facility] and the current president. . She tells me she is not hungry, but would drink something. Per her nurse, She did take some medications today and refused others. WBCs are again elevated, she is getting hypokalemic despite supplementation. Phosphorus and albumin remained critically low. She remains with a nonhealing wound to her buttocks/coccyx. She remains painful with repositioning. In light of her refusal to eat the SNF will not take her back without a feeding tube unless she has hospice in place. She remains noncommittal to hospice. However, yesterday indicated she did not want to and agreed to placement of a PEG tube. Her sister Darleen participated in the discussion. GI consult is pending. While Ms Rain is able to make some needs known, it is doubtful that she has a insight to make more complex decisions i.e., pros and cons of surgery; pros and cons of nutrition, hydration; pros and cons of hospice or other advanced care planning. In conversation, today she stated she had 6 children, however, this is not verified by her sister Mirian. She helped raised many children, but none of her own. She was never , but rather had a mcc boyfriend who is now . In attempting to further clarify GOC, I discussed attaining a HCS. Family/friend interactions Spoke w sister Mirian via phone. Confirmed the absence of her own children. She identied there were 3 brothers and 3 sisters (Yessenia, Mirian, Mine) . Mine will be here tomorrow - lives in [place]. Kenny is an "outcast" lives in [facility] and not heard from There is another brother that lives in [facility] Several brothers have . - Will gather phone numbers from family tomorrow (Simran Farris) Subjective/Interval History Pt appears to have poor short term memory. She is oriented to self, and place, but not to year. Instruct pt to remember current year is 2016. Ask her multiple times and each time she either say 1993 or 1995. On 3 object recall, she could only remember one object. When ask if the delaney is blue, she stated yes. When I ask on a well watered lawn, if the grass is pink , she also stated yes. She endorses she has 6 children, although some of the medical records state she has no children ([facility] plans on calling sister to confirm weather she has children or not). When I ask patient to name her children, she struggled only able to name 4/6 children. Aba Carr, Joel, etc.. repeating Aba twice. When ask about her medical condition, at times get things correct, but takes much coaxing and hints. Given pt's poor short term memory( object recall, inablility to remember year, her children's name, or even if she has children), questionable insight, inconsistent reply to past conversation, I feel on my exam, at the current time , pt does not have full capacity to weigh the risk and benefits of medical decisions. I feel goals of care can be reviewed with patient and pt be involved , but she would need a proxy to support her; and medical decisions should not be made independently by patient alone. She needs the support of a proxy/family for medical decision making. (Augustin Vargas MD) Advance Directives Living Will: Never completed Health Care Surrogate: Never completed Durable Power of Gyroscopic Instrument Tester: Never completed (Simran Farris) Advance Directive Specifics Health Care Surrogate(s): No HCS appointed. Attempting to attain family member information for decision making Significant change in goals: No change in goals at this time, but Mirian repeats that is her sister doesn't want to do something, she can't force her. (Simran Farris) Objective Vital Signs Date Time Temp Pulse Resp B/P Pulse Ox O2 Delivery O2 Flow Rate FiO2 04/17/16 08:30 98.7 97 16 97/54 97 04/17/16 04:00 98.2 87 16 97/54 100 04/17/16 04:00 Room Air 04/17/16 00:00 96.8 93 16 104/59 97 04/17/16 00:00 Room Air 04/16/16 20:45 86 04/16/16 20:00 Room Air 04/16/16 20:00 97.9 90 16 108/67 100 04/16/16 16:00 97.6 94 16 100 04/16/16 12:00 98.2 95 16 96/62 100 Intake & Output 04/17/16 04/17/16 07:00 19:00 Intake Total 1229 ml Balance 1229 ml Intake Oral 120 ml IV Total 1109 ml # Voids 7 # Bowel Movements 1 Physical Exam CONSTITUTIONAL/GENERAL: This is thin, female, in no apparent distress. TUBES/LINES/DRAINS: IV lines SKIN: She has a large decubitus to her buttocks that is full-thickness. No jaundice, rashes, or lesions. Skin temperature appropriate. Not diaphoretic. HEAD: Atraumatic. Normocephalic. EYES: Pupils equal and round and reactive. Extraocular motions intact. No scleral icterus. No injection or drainage. Fundi not examined. ENT: Hearing grossly normal. Nose without bleeding or purulent drainage. Throat without visible erythema, exudates, masses, or lesions. She has no upper teeth and has lost all of her lower molars NECK: Trachea midline. Supple, nontender. No palpable thyroid enlargement or nodularity. CARDIOVASCULAR: Regular rate and rhythm without murmurs, gallops, or rubs. No JVD. Peripheral pulses symmetric. RESPIRATORY/CHEST: Symmetric, unlabored respirations. Clear to auscultation. Breath sounds equal bilaterally. No wheezes, rales, or rhonchi. GASTROINTESTINAL: Abdomen soft, non-tender, nondistended. No hepato-splenomegaly , or palpable masses. No guarding. Bowel sounds present. GENITOURINARY: Without palpable bladder distension. Oakes catheter in place. MUSCULOSKELETAL: Extremities without clubbing, cyanosis, or edema. She is very stiff in her knees with very limited range of motion. No calf tenderness. No mottling or clubbing. LYMPHATICS: No palpable cervical or supraclavicular adenopathy. NEUROLOGICAL: Awake and alert to self, place, Motor and sensory are within normal limits. Follows commands to the ability of her limitations. Limited movement to extremities due to musculoskeletal issues. PSYCHIATRIC: Cognitively clearer today, but non-committal to decisions. Her thought process is slow, yet at times she is quite clear in expressing her desires. .No obvious anxiety/depression. no apparent hallucinations or other psychotic thought process. (Simran Farris) Diagnostic Tests Laboratory Laboratory Tests Test 04/15/16 04/17/16 05:59 05:01 Sodium Level 142 MEQ/L 141 MEQ/L (136-145) (136-145) Potassium Level 3.5 MEQ/L 3.0 MEQ/L (3.5-5.1) (3.5-5.1) Chloride Level 113 MEQ/L 109 MEQ/L (98-107) (98-107) Carbon Dioxide Level 20.4 MEQ/L 25.7 MEQ/L (21.0-32.0) (21.0-32.0) Anion Gap 9 MEQ/L (5-15) 6 MEQ/L (5-15) Blood Urea Nitrogen 2 MG/DL (7-18) 5 MG/DL (7-18) Creatinine 0.61 MG/DL 0.75 MG/DL (0.50-1.00) (0.50-1.00) Estimat Glomerular Filtration 119 ML/MIN 94 ML/MIN (>89) Rate (>89) Random Glucose 92 MG/DL 80 MG/DL (74-106) (74-106) Calcium Level 7.8 MG/DL 7.2 MG/DL (8.5-10.1) (8.5-10.1) Phosphorus Level 1.0 MG/DL (2.5-4.9) Albumin 1.6 GM/DL (3.4-5.0) White Blood Count 15.0 TH/MM3 (4.0-11.0) Red Blood Count 4.00 MIL/MM3 (4.00-5.30) Hemoglobin 11.7 GM/DL (11.6-15.3) Hematocrit 35.7 % (35.0-46.0) Mean Corpuscular Volume 89.1 FL (80.0-100.0) Mean Corpuscular Hemoglobin 29.1 PG (27.0-34.0) Mean Corpuscular Hemoglobin 32.7 % Concent (32.0-36.0) Red Cell Distribution Width 15.6 % (11.6-17.2) Platelet Count 208 TH/MM3 (150-450) Mean Platelet Volume 9.3 FL (7.0-11.0) Protein Corrected Calcium 8.7 MG/DL (8.5-10.1) Total Protein 4.5 GM/DL (6.4-8.2) (Simran Farris) Result Diagram: 04/17/16 0501 04/17/16 0501 Assessment and Plan Disease Oriented Problem List: (1) HIV (human immunodeficiency virus infection) Comment: Medications discontinued due to ATN and declining renal function. Pt had also been refusing them (2) Malnourished Comment: Protein calorie malnourishment; GI consult pending for PEG placement (3) Hypokalemia (4) Hypophosphatemia (5) Acidosis Comment: Improving (6) Sepsis Comment: e. coli UTI. Immunocompromised due to HIV; WBC is elevated again (7) UTI (lower urinary tract infection) Comment: resolving - has been on ABX (8) Nephrolithiasis Comment: Resolved. 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 Not painful unless moved. Refusing scheduled pain meds (2) Fatigue 0-10 Scale: Unable to quantify Comment: Malnourishment with electrolyte imbalance; bedridden status (3) Anorexia 0-10 Scale: 8 Comment: Stares she is hungry, but doesn't want to eat. Resolving Small bowel ileus and UTI sepsis (4) Debility 0-10 Scale: 8 Comment: Long-term bed to wheelchair status with protein calorie undernutrition , anorexia, HIV status Pertinent Non-Medical Issues Psychosocial: Not felt to be able to make own decisions. She has no designated POA or health care surrogate. Several family members Spiritual: Hoahaoism Legal: will need family decision making in the absence of a health care proxy. Ethical issues impacting care: Cognitively limited with decisions Important Contacts Her sister Darleen is her closest sister. However, she is not her HCS/POA telephone [phone]. Have determined there are 3 sisters ( Yessenia, Mirian from [facility] and Mine from [place]). There are 3 brothers living - one in in [facility] and another in [place]. There is a 3rd brother, described as an 'outcast' (Kenny) that lives in [facility]. Will need four of the six surviving siblings to serve as decision makes in the absence of a HCS. . Prognosis Fair - she is declining with immunocompromise from HIV; she also has been experiencing anorexia which may be due to her acute illnesses. However records do indicate that she has had protein calorie malnutrition for some time. She has a nonhealing decubiti. While,she would be appropriate for hospice, she non- committal and " wants to think about it" . Has stated she does not want to and agreed to a PEG on 04/16/16; Code Status: No Code Plan Decision Maker: No written HCS or POA: her sister Darleen [phone], as her closest sister, Code Status: DNR Family Discussion: Have determined there are 3 sisters (Mirian Casas from [facility] and Mine from [place]). There are 3 brothers living - one in in [facility] and another in [place]. There is a 3rd brother, described as an ' outcast' (Kenny) that lives in [facility] [place]. Will need 3 of out 5 siblings to agree to participate in decision making. Symptoms: Pain, fatigue, anorexia Palliative care phone number provided - will follow during hospital stay. ( Simran Farris) Plan Capacity: Given pt's poor short term memory( object recall, inablility to remember year, her children's name, or even if she has children), questionable insight, inconsistent reply to past conversation, I feel on my exam, at the current time, pt does not have full capacity to weigh the risk and benefits of medical decisions. I feel goals of care can be reviewed with patient and pt can be involved, but she would need a proxy to support her; and medical decisions should not be made independently by patient alone. She needs the support of a proxy/family for medical decision making. (Augustin Vargas MD) Simran Farris Apr 17, 2016 10:37 Augustin Vargas MD Apr 17, 2016 11:05 Simran Farris Apr 17, 2016 10:37 Augustin Vargas MD Apr 17, 2016 11:05
[2016-04-17 12:00] VITALS: BP 92/50; PULSE 110; RESP 17; TEMP 96; O2SAT 100
--- NOTE | 2016-04-17 13:21 | HHI.PR ---
Subjective Subjective Remarks Eyes open, alert More conversation today Sitting up in bed eating small amounts of food Pale mucous membranes No facial grimace no shortness of breath (Kinza Nieto) Review of Systems Constitutional Constitutional: Weakness Constitutional Remarks Limited 10 point ROS done. More alert and attempting to eat solid food. Other systems essentially unremarkable or unable to assess (Kinza Nieto) GI/Abdomen GI/Abdomen Remarks No nausea vomiting eating solid food (Kinza Nieto) Musculoskeletal MS: Weakness (generalized) (Kinza Nieto) Psychiatric Psychiatric: Normal Mood (today) Psychiatric Remarks Withdrawn (Kinza Nieto) Endocrine Endocrine: Cold/Heat Intolerence (states she is cold) (Kinza Nieto) Allergic/Immunologic Allergic/Immunologic/Remarks HIV, chronic renal disease (Kinza Nieto) Vitals/Results Intake & Output 04/16/16 04/16/16 04/17/16 15:00 23:00 07:00 Intake Total 1524 ml 571 ml 658 ml Balance 1524 ml 571 ml 658 ml Intake Oral 0 ml 120 ml IV Total 1524 ml 571 ml 538 ml # Voids 1 6 # Bowel Movements 3 0 1 Vital Signs Vital Signs Date Time Temp Pulse Resp B/P Pulse Ox O2 Delivery O2 Flow Rate FiO2 04/17/16 08:30 98.7 97 16 97/54 97 04/17/16 04:00 98.2 87 16 97/54 100 04/17/16 04:00 Room Air 04/17/16 00:00 96.8 93 16 104/59 97 04/17/16 00:00 Room Air 04/16/16 20:45 86 04/16/16 20:00 Room Air 04/16/16 20:00 97.9 90 16 108/67 100 04/16/16 16:00 97.6 94 16 100 (Kinza Nieto) CBC/BMP: 04/17/16 0501 04/17/16 0501 Lab Results Laboratory Tests Test 04/17/16 05:01 White Blood Count 15.0 TH/MM3 Red Blood Count 4.00 MIL/MM3 Hemoglobin 11.7 GM/DL Hematocrit 35.7 % Mean Corpuscular Volume 89.1 FL Mean Corpuscular Hemoglobin 29.1 PG Mean Corpuscular Hemoglobin 32.7 % Concent Red Cell Distribution Width 15.6 % Platelet Count 208 TH/MM3 Mean Platelet Volume 9.3 FL Sodium Level 141 MEQ/L Potassium Level 3.0 MEQ/L Chloride Level 109 MEQ/L Carbon Dioxide Level 25.7 MEQ/L Anion Gap 6 MEQ/L Blood Urea Nitrogen 5 MG/DL Creatinine 0.75 MG/DL Estimat Glomerular Filtration 94 ML/MIN Rate Random Glucose 80 MG/DL Calcium Level 7.2 MG/DL Protein Corrected Calcium 8.7 MG/DL Total Protein 4.5 GM/DL Current Medications Active Medications Potassium Phosphate (K-Phos) 250 mg QID PO; Start 04/17/16 at 13:00 (Kinza NietoP) Physical Exam General General Appearance: No Acute Distress, Malnourished Appearance Remarks At rest (Kinza NietoP) Eyes Eye Exam: Pupils Equal, Pupils Reactive (Kinza NietoP) Ears & Nose Ears & Nose Exam: Nasal Mucosa Hughes (Kinza NietoP) Throat Throat Exam: Oral Mucosa Hughes & Moist (Kinza NietoP) Neck Neck Exam: Neck Supple, Trachea Midline (Kinza NietoP) Pulmonary Resp Exam: No Distress, Decreased Bases (Kinza Nieto. LETTER[employer] PRINTING MACHINIST) Cardiology CV Exam: Regular (Kinza NietoP) Gastrointestinal/Abdomen GI Exam: Soft, Non-Tender, Bowel Sounds Present, Non-Distended GI Remarks We will complain of abdominal pain every once in a while. Taking minimal amounts of medications if any. (Kinza Nieto. [employer] PRINTING MACHINIST) Musculoskeletal MS Exam: Joints Intact, Atrophy (Kinza NietoP) Integumentary Skin Exam: Warm, Dry Skin Remarks thin skin turgor, minimal recoil (Kinza Nieto. [employer] PRINTING MACHINIST) Extremeties Extremities Exam: No Edema (Kinza Nieto. [employer] PRINTING MACHINIST) Neurologic Neuro Exam: Alert, Awake, Speech Clear, Moving All Extremities, No Focal Deficits (Kinza Nieto. [employer] PRINTING MACHINIST) VTE Prophylaxis VTE Prophylaxis Meds: Heparin (Kinza Nieto) Assessment/Plan Problem List: (1) Sepsis (2) HIV (human immunodeficiency virus infection) (3) UTI (lower urinary tract infection) (4) Metabolic acidosis (5) Hypophosphatemia (6) Nephrolithiasis (7) Malnourished (8) Thrush (9) Leukocytosis (10) Bilateral kidney stones (11) Hypokalemia (12) Anemia (13) Acute renal insufficiency Assessment/Plan appreciate nephrology input per nephrology, poss. Fanconi syndrome secondary Tenofovir. CO2 improving on D5W now per nephrology Kphos ATC off HAART now, has been refusing. Ok per ID. Pt. to f/u with ID as OP renal signed off. Hypotension, BP improved, received fluid bolus on 04/10. Appears to be baseline for her continue with IVF, only KVO for now appreciate ID continue with antibiotics, follow cultures UA + Ecoli repeat UA, UC < GPC, no sens change to Rocephin, ID reconsult to address HAART recommends to stop HAART, pt. has refused for last 3 days signed off appreciate urology input continue with conservative management, may need lithotripsy as OP Anemia S/P PRBC 04/10 09/07 HH stable Hemoccult negative Abd. xray noted, mild ileus adv to soft diet-tolerating well if N/V, insert NGT Currently stabilized and patient is taking small amounts of solid food and liquids. Currently much more alert today poor nutritional status continue Megace refusing Boost antiemetics PRN Eating solid food today. States she wants to get better PT, OOB Heparin for DVT prophylaxis Pepcid for GI prophylaxis Guarded prognosis Pt. refusing meds, capacity to make decisions questionable. Sister is not HCS appreciate palliative care input, pt now DNR. Pt. is appropriate for hospice but has refused to talk to them although she had indicated before willingness to speak to them per CM, involved in discharge planning D/W pt, sisters at length, pt. agreeable with Peg tube, but states that she would like to try to eat first consult GI for peg tube, the patient cannot maintain her nutritional status. Pending Dietary eval for tube feeding, currently receiving ensure and regular food Plan to dc same if she tolerates feeding well umberto castanon D/W RN D/W Dr. Ames D/W pt./sisters D/W CM This patient was seen by myself and Dr. Ames, this note is written on his behalf. (Kinza Nieto) Assessment/Plan Patient seen and examined ate good lunch today awaiting GI input plan for PEG placement and discharge to SNF soon discussed with patient discussed with Kinza ZHENG (Lilia Ames MD) Problem Qualifiers (1) Sepsis: Qualified Code: A41.51 - Sepsis due to Escherichia coli (2) Leukocytosis: Qualified Code: D72.829 - Leukocytosis, unspecified type (3) Anemia: Kinza Nieto Apr 17, 2016 13:21 Lilia Ames MD Apr 17, 2016 15:57
[2016-04-17] MEDS: cefTRIAXone INJ 1,000 MG in SODIUM CHLORIDE 0.9% INJ 100 ML IV SCH (15:12)
[2016-04-17 17:15] VITALS: BP 87/52; PULSE 86; RESP 19; TEMP 95.7; O2SAT 98
[2016-04-17 20:00] VITALS: BP 100/60; PULSE 80; PULSE 81; RESP 20; TEMP 97.3; O2SAT 100
[2016-04-17] MEDS: ATORVASTATIN 20 MG TAB PO SCH (22:46)
[2016-04-17] MEDS: LATANOPROST 0.005% OPHT SOLN 2.5 ML BTL EACH EYE SCH (22:54)
[2016-04-18] VITALS: BP 92/56; PULSE 83; RESP 20; TEMP 95.8; O2SAT 100
[2016-04-18 04:00] VITALS: BP 92/60; PULSE 97; RESP 20; TEMP 98.4; O2SAT 100
[2016-04-18] MEDS: LEVOTHYROXINE SODIUM 50 MCG TAB PO SCH (05:16)
[2016-04-18 06:08] LABS: BICARBONATE 23.6 MEQ/L (21.0-32.0); POTASSIUM 3.3 MEQ/L (3.5-5.1)
[2016-04-18 06:26] LABS: CALCIUM-PROTEIN CORRECTED 8.8 MG/DL (8.5-10.1)
[2016-04-18 08:00] VITALS: BP 82/51; PULSE 86; RESP 18; TEMP 98.4; O2SAT 100
[2016-04-18] MEDS: CYANOCOBALAMIN 1,000 MCG TAB PO SCH (09:00)
[2016-04-18] MEDS: SODIUM CHLORIDE 0.9% FLUSH 5 ML FLUSH FLUSH SCH (09:00)
[2016-04-18] MEDS: POLYETHYLENE GLYCOL 17 GM PKG PO SCH (09:00)
[2016-04-18] MEDS: DOCUSATE SODIUM 50 MG/SENNA 8.6 MG TAB PO SCH ×2 (09:00→13:00)
[2016-04-18] MEDS: [UNRECOGNIZED DRUG - OTHER] IV SCH ×3 (09:08)
[2016-04-18] MEDS: POTASSIUM CHLORIDE IV SCH ×3 (09:08)
[2016-04-18] MEDS: SODIUM BICARBONATE IV SCH ×3 (09:08)
[2016-04-18] MEDS: DEXTROSE 5% IV SCH ×3 (09:08)
[2016-04-18] MEDS: FERROUS SULFATE 325 MG (65 MG ELEMENTAL IRON) TAB PO SCH ×2 (10:01→12:13)
[2016-04-18] MEDS: MULTIVITAMINS/MINERALS THERAPEUTIC TAB PO SCH (10:01)
[2016-04-18] MEDS: FENOFIBRATE 145 MG TAB PO SCH (10:01)
[2016-04-18] MEDS: MEGESTROL ACETATE SUSP 400 MG/10 ML CUP PO SCH (10:01)
[2016-04-18] MEDS: FAMOTIDINE 20 MG TAB PO SCH (10:02)
[2016-04-18] MEDS: GABAPENTIN 300 MG CAP PO SCH (10:02)
[2016-04-18] MEDS: ASCORBIC ACID 500 MG TAB PO SCH (10:02)
[2016-04-18] MEDS: SERTRALINE HCL 50 MG TAB PO SCH (10:02)
[2016-04-18] MEDS: POTASSIUM PHOSPHATE MONOBASIC 500 MG TAB PO SCH ×2 (10:03→12:13)
[2016-04-18] MEDS: ACETAMINOPHEN/HYDROcodone 325 MG/5 MG TAB PO SCH ×2 (10:04→12:13)
[2016-04-18] MEDS: HEPARIN SODIUM - SQ 10,000 UNITS/ML VIAL SQ SCH (10:05)
[2016-04-18 12:00] VITALS: BP 76/47; PULSE 97; RESP 20; TEMP 97.2; O2SAT 100
--- NOTE | 2016-04-18 12:54 | PD.CONS ---
HPI History of Present Illness This is a 65 year old female with known history of HIV, Hypercholesterolemia, Hypothyroidism, HTN, GERD who is here for evaluation abdominal pain, decreased PO intake, some nausea and vomiting, and inability to take her medication. Patient is alert and oriented able to answer questions, but she is very bad historian. she states she vomiting every now and then. Denies abdomen pain, melena or hematochezia. Gi have been consulted for PEG tube placement. She has cachexia, low albumin. Patient has been eating soft diet, tolerating okay, she reports increased PO intake. 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 Past Surgical History Had cyst removed from the right side of abdomen . (Rachael Butcher) Coded Allergies: Do (Verified Allergy, Severe, 04/02/16) Medications Current Medications Medications (Trade) Dose Ordered Sig/Rodolfo Route Start Time Stop Time Status Last Admin (NS Flush) 2 ml UNSCH PRN FLUSH 04/02/16 20:30 (NS Flush) 2 ml BID FLUSH 04/02/16 21:00 04/18/16 09:00 (Zofran Inj) 4 mg Q6H PRN IVP 04/02/16 20:30 04/15/16 23:13 (Senokot) 17.2 mg Q12H PRN PO 04/02/16 20:30 (Heparin Inj) 5,000 units Q12H SQ 04/02/16 21:00 04/18/16 10:05 (Narcan Inj) 0.4 mg UNSCH PRN IV 04/02/16 20:30 (Tylenol) 650 mg Q4HR PRN PO 04/03/16 07:30 (Fosamax) 70 mg Q7D PO 04/09/16 07:00 04/09/16 07:33 (Vitamin C) 1,000 mg DAILY PO 04/03/16 09:00 04/18/16 10:02 (Lipitor) 20 mg HS PO 04/03/16 21:00 04/17/16 22:46 (Dulcolax Supp) 10 mg DAILY PRN RECTAL 04/03/16 07:30 (Tricor) 145 mg DAILY PO 04/03/16 09:00 04/18/16 10:01 (Ferrous Sulfate) 325 mg TID PO 04/03/16 09:00 04/18/16 12:13 (Neurontin) 300 mg Q12HR PO 04/03/16 21:00 04/18/16 10:02 (Susan 5-325 Mg) 1 tab TID PO 04/03/16 09:00 04/18/16 10:04 (Xalatan 0.005% Opth Soln) 1 drop HS EACH EYE 04/03/16 21:00 04/17/16 22:54 (Synthroid) 50 mcg DAILY@0600 PO 04/03/16 08:15 04/18/16 05:16 (Imodium) 2 mg BID PRN PO 04/03/16 07:30 04/13/16 18:24 (Milk Of Magnesia Liq) 30 ml Q4HR PRN PO 04/03/16 07:30 (Megace Liq) 400 mg DAILY PO 04/03/16 09:00 04/18/16 10:01 (Theragran M Tab) 1 tab DAILY PO 04/03/16 09:00 04/18/16 10:01 (Miralax) 17 gm DAILY PO 04/03/16 09:00 04/10/16 08:05 (Nikia-Colace) 1 tab TID PO 04/03/16 09:00 04/08/16 17:11 (Zoloft) 25 mg DAILY PO 04/03/16 09:00 04/18/16 10:02 (Fleets Enema (Adult)) 118 ml DAILY PRN RECTAL 04/03/16 07:30 (Vitamin B12) 1,000 mcg BID PO 04/03/16 09:00 04/18/16 09:00 (Pill Splitter) 1 ea UNSCH PRN OTHER 04/03/16 08:30 Al Hydrox/Mg Hydrox/ Simethicone 30 ml 30 ml Q6H PRN PO 04/04/16 15:30 Ceftriaxone Sodium 1000 mg/ Sodium Chloride 100 ml @ 200 mls/hr Q24H IV 04/11/16 15:00 04/19/16 14:59 04/17/16 15:12 (Sodium Bicarbonate 8.4% Inj/KCl Inj/D5W 1000 ml Inj) 1,085 ml @ 75 mls/hr [id number] IV 04/11/16 18:00 04/18/16 09:08 (Pepcid) 20 mg BID PO 04/15/16 21:00 04/18/16 10:02 (K-Phos) 250 mg QID PO 04/17/16 13:00 04/18/16 12:13 Family History Non contributory Social History she is a nursing facility resident No alcohol No smoking No illicit drug use, has hx of IVDA (Rachael Butcher) Review of Systems Constitutional: COMPLAINS OF: Fatigue, Weight loss Endocrine: DENIES: Polyuria Eyes: DENIES: Double Vision Respiratory: DENIES: Shortness of breath Cardiovascular: DENIES: Lower Extremity Edema Gastrointestinal: COMPLAINS OF: Nausea, Vomiting, Anorexia, DENIES: Abdominal pain, Black stools, Bloody stools, Constipation, Diarrhea, Difficulty Swallowing , Odynophagia, Swelling of Abdomen, Heartburn, Hematemesis Genitourinary: DENIES: Hematuria Musculoskeletal: DENIES: Neck pain Integumentary: DENIES: Jaundice Hematologic/lymphatic: DENIES: Bruising Immunologic/allergic: DENIES: Eczema Neurologic: DENIES: Abnormal gait Psychiatric: DENIES: Anxiety (Rachael Butcher) GI Exam Vitals I&O Vital Signs Date Time Temp Pulse Resp B/P Pulse Ox O2 Delivery O2 Flow Rate FiO2 04/18/16 08:00 98.4 86 18 82/51 100 04/18/16 04:00 98.4 97 20 92/60 100 04/18/16 00:00 95.8 83 20 92/56 100 04/17/16 22:45 Room Air 04/17/16 20:00 97.3 81 20 100/60 100 04/17/16 20:00 80 04/17/16 17:15 95.7 86 19 87/52 98 I/O 04/17/16 04/17/16 04/17/16 04/18/16 04/18/16 04/18/16 07:00 15:00 23:00 07:00 15:00 23:00 Intake Total 658 ml 500 ml 1380 ml 484 ml Balance 658 ml 500 ml 1380 ml 484 ml Intake Oral 120 ml 500 ml 120 ml 0 ml IV Total 538 ml 1260 ml 484 ml # Voids 6 4 1 3 # Bowel Movements 1 0 Imaging Last Impressions Abdomen X-Ray 04/10/16 0000 Signed Impressions: Service Date/Time: Sunday, April 10, 2016 16:41 - CONCLUSION: 1. Gaseous distention of multiple bowel loops which can be seen with ileus. 2. Left-sided renal calculi. Kwame Fountain MD Chest X-Ray 04/09/16 0000 Signed Impressions: Service Date/Time: Saturday, April 09, 2016 10:18 - CONCLUSION: Minimal fluid in the left base, otherwise negative. Leo Iverson MD FACR Renal Ultrasound 04/05/16 0600 Signed Impressions: Service Date/Time: March 07:52 - CONCLUSION: 1. Multiple nonobstructing calculi in the left renal collecting system, the largest measuring approximately 1.6 cm in diameter. 2. Benign-appearing renal cortical cysts in the right kidney. 3. Punctate echogenic foci in the cortex of the right kidney the junction of the upper and midpole is unchanged without shadowing and may represent a foci of renal cortical fat. 4. Increased echogenicity of the renal cortices symmetrically and bilaterally suggesting some degree of medical renal disease. 5. No significant change from prior. Manuel López MD Abdomen/Pelvis CT 04/02/16 1554 Signed Impressions: Service Date/Time: Saturday, April 02, 2016 18:41 - CONCLUSION: 1. Nonobstructing renal stones being much more numerous and larger on the left side. The central calcifications in the left kidney resemble a staghorn calculus. 2. Mild dilatation of the right collecting system and right ureter. This suggests there may have been a passed stone. A stone in the right ureter is not seen. 3. Destructive changes at the femoral heads bilaterally. These changes appear chronic. These changes could be secondary to underlying process such as prior avascular necrosis, prior trauma or prior inflammatory change including infection or inflammatory arthritis. Marquis Galo MD Laboratory Test 04/18/16 05:19 Sodium Level 143 MEQ/L Potassium Level 3.3 MEQ/L Chloride Level 110 MEQ/L Carbon Dioxide Level 23.6 MEQ/L Anion Gap 9 MEQ/L Blood Urea Nitrogen 6 MG/DL Creatinine 0.69 MG/DL Estimat Glomerular Filtration 103 ML/MIN Rate Random Glucose 77 MG/DL Calcium Level 7.3 MG/DL Protein Corrected Calcium 8.8 MG/DL Total Protein 4.5 GM/DL Physical Examination HEENT: Cachexia, sunken eyes, normocephalic; atraumatic; no jaundice. CHEST: Chest is clear to auscultation and percussion. CARDIAC: Regular rate and rhythm ABDOMEN: Soft, nondistended, nontender; no hepatosplenomegaly; bowel sounds are present in all four quadrants. EXTREMITIES: No clubbing, cyanosis, or edema. SKIN: Normal; no rash; no jaundice. 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 Patient is not very keen about having PEG tube placed, would like to think about it, stating she is doing better and eating more. - Mild ileus- as evident on X-ray, abdomen soft, moving her bowels - Anemia- no signs of bleeding - HIV/ HTN, UTI per attending Plan: - UNA - EGD/PEG once consents obtained and patient agreeing, currently would like to think about it, I spoke to sister Mirian at and she along with the other sister , will discuss PEG tube with the patient - cont. supportive care - Will reassess - Patient seen and examined by dr. Overton and myself and this note is written on his behalf (Rachael Butcher) Physician Comments Patient seen and examined Agree with above Continue with current supportive care Monitor labs Patient to think about PEG tube at this point (Chon Overton MD) Rachael Butcher Apr 18, 2016 12:53 Chon Overton MD Apr 18, 2016 22:03
[2016-04-18] MEDS: cefTRIAXone INJ 1,000 MG in SODIUM CHLORIDE 0.9% INJ 100 ML IV SCH (15:00)
--- NOTE | 2016-04-18 15:29 | HHI.PR ---
Subjective Subjective Remarks Eyes open, alert More conversation today Sitting up in bed eating small amounts of food Pale mucous membranes No facial grimace no shortness of breath (Kinza Nieto) Review of Systems Constitutional Constitutional: Weakness Constitutional Remarks Limited 10 point ROS done. More alert and attempting to eat solid food. Other systems essentially unremarkable or unable to assess (Kinza Nieto) GI/Abdomen GI/Abdomen Remarks No nausea vomiting eating solid food (Kinza Nieto) Musculoskeletal MS: Weakness (generalized) (Kinza Nieto) Psychiatric Psychiatric: Normal Mood (today) Psychiatric Remarks Withdrawn (Kinza Nieto) Endocrine Endocrine: Cold/Heat Intolerence (states she is cold) (Kinza Nieto) Allergic/Immunologic Allergic/Immunologic/Remarks HIV, chronic renal disease (Kinza Nieto) Vitals/Results Intake & Output 04/17/16 04/17/16 04/18/16 15:00 23:00 07:00 Intake Total 500 ml 1380 ml 484 ml Balance 500 ml 1380 ml 484 ml Intake Oral 500 ml 120 ml 0 ml IV Total 1260 ml 484 ml # Voids 4 1 3 # Bowel Movements 0 Vital Signs Vital Signs Date Time Temp Pulse Resp B/P Pulse Ox O2 Delivery O2 Flow Rate FiO2 04/18/16 12:00 97.2 97 20 76/47 100 04/18/16 08:00 98.4 86 18 82/51 100 04/18/16 04:00 98.4 97 20 92/60 100 04/18/16 00:00 95.8 83 20 92/56 100 04/17/16 22:45 Room Air 04/17/16 20:00 97.3 81 20 100/60 100 04/17/16 20:00 80 04/17/16 17:15 95.7 86 19 87/52 98 (Kinza Nieto) CBC/BMP: 04/17/16 0501 04/18/16 0519 Lab Results Laboratory Tests Test 04/18/16 05:19 Sodium Level 143 MEQ/L Potassium Level 3.3 MEQ/L Chloride Level 110 MEQ/L Carbon Dioxide Level 23.6 MEQ/L Anion Gap 9 MEQ/L Blood Urea Nitrogen 6 MG/DL Creatinine 0.69 MG/DL Estimat Glomerular Filtration 103 ML/MIN Rate Random Glucose 77 MG/DL Calcium Level 7.3 MG/DL Protein Corrected Calcium 8.8 MG/DL Total Protein 4.5 GM/DL (Kinza Nieto M. MAINTENANCE ASSISTANT) Physical Exam General General Appearance: No Acute Distress, Malnourished Appearance Remarks At rest (Kinza Nieto M. MAINTENANCE ASSISTANT) Eyes Eye Exam: Pupils Equal, Pupils Reactive (Kinza Nieto M. MAINTENANCE ASSISTANT) Ears & Nose Ears & Nose Exam: Nasal Mucosa [place] (Sun,Kinza M. MAINTENANCE ASSISTANT) Throat Throat Exam: Oral Mucosa [place] & Moist (Gerson,Kinza M. MAINTENANCE ASSISTANT) Neck Neck Exam: Neck Supple, Trachea Midline (Gerson,Kinza M. MAINTENANCE ASSISTANT) Pulmonary Resp Exam: No Distress, Decreased Bases (SunKate santanaan M. MAINTENANCE ASSISTANT) Cardiology CV Exam: Regular (Kinza Nieto M. MAINTENANCE ASSISTANT) Gastrointestinal/Abdomen GI Exam: Soft, Non-Tender, Bowel Sounds Present, Non-Distended GI Remarks We will complain of abdominal pain every once in a while. Taking minimal amounts of medications if any. (Kinza Nieto M. MAINTENANCE ASSISTANT) Musculoskeletal MS Exam: Joints Intact, Atrophy (Kate Nietoan M. MAINTENANCE ASSISTANT) Integumentary Skin Exam: Warm, Dry Skin Remarks thin skin turgor, minimal recoil (Kate Nietoan M. MAINTENANCE ASSISTANT) Extremeties Extremities Exam: No Edema (Kate Nietoan M. MAINTENANCE ASSISTANT) Neurologic Neuro Exam: Alert, Awake, Speech Clear, Moving All Extremities, No Focal Deficits (Kate Nietoan M. MAINTENANCE ASSISTANT) VTE Prophylaxis VTE Prophylaxis Meds: Heparin (GersonKateKinza M. MAINTENANCE ASSISTANT) Assessment/Plan Problem List: (1) Sepsis (2) HIV (human immunodeficiency virus infection) (3) UTI (lower urinary tract infection) (4) Metabolic acidosis (5) Hypophosphatemia (6) Nephrolithiasis (7) Malnourished (8) Thrush (9) Leukocytosis (10) Bilateral kidney stones (11) Hypokalemia (12) Anemia (13) Acute renal insufficiency Assessment/Plan Problem List: (1) Sepsis (2) HIV (human immunodeficiency virus infection) (3) UTI (lower urinary tract infection) (4) Metabolic acidosis (5) Hypophosphatemia (6) Nephrolithiasis (7) Malnourished (8) Thrush (9) Leukocytosis (10) Bilateral kidney stones (11) Hypokalemia (12) Anemia (13) Acute renal insufficiency Assessment/Plan appreciate nephrology input Stabilized and resolved Hypotension, resolved appreciate urology input continue with conservative management, may need lithotripsy as OP Anemia Stable Leukocytosis, patient remains on antibiotic therapy throughout her hospital stay. Transient waxed and waned but patient is asymptomatic for any cough or fever. Currently stabilized and patient is taking small amounts of solid food and liquids. Currently much more alert today continue Megace antiemetics PRN Eating solid food today. States she wants to get better PT, OOB Heparin for DVT prophylaxis Pepcid for GI prophylaxis Patient is now DO NOT RESUSCITATE consult GI for peg tube. Patient is not wanting a PEG tube and wants to try to eat and keep her nutritional status up herself. Patient took all of her by mouth meds over the past 48 hours. States she will continue to take them. Working with case management for possible discharge today back to her facility. Appetite continues to improve with even more food intake today, ate approximately 75% of her lunch. She is alert and cooperative, in conversational. (Kinza Nieto) Assessment/Plan Patient seen and examined eating well, took her medicines ok to d/c to SNF overall prognosis POOR discussed with Kinza ZHENG (Lilia Ames MD) Problem Qualifiers (1) Sepsis: Qualified Code: A41.51 - Sepsis due to Escherichia coli (2) Leukocytosis: Qualified Code: D72.829 - Leukocytosis, unspecified type (3) Anemia: Kinza Nieto Apr 18, 2016 15:29 Lilia Ames MD Apr 18, 2016 15:31
[2016-04-18 16:00] VITALS: BP 80/49; PULSE 72; RESP 15; TEMP 96; O2SAT 100
--- NOTE | 2016-04-18 17:45 | HHI.DS ---
Discharge Summary Admission Date Apr 04, 2016 at 10:00 Discharge Date: Apr 18, 2016 Admitting Diagnosis UTI/Acidosis CBC/BMP: 04/17/16 0501 04/18/16 0519 Significant Findings Laboratory Tests Test 04/17/16 04/18/16 05:01 05:19 White Blood Count 15.0 TH/MM3 (4.0-11.0) Potassium Level 3.0 MEQ/L 3.3 MEQ/L (3.5-5.1) (3.5-5.1) Chloride Level 109 MEQ/L 110 MEQ/L (98-107) (98-107) Blood Urea Nitrogen 5 MG/DL (7-18) 6 MG/DL (7-18) Calcium Level 7.2 MG/DL 7.3 MG/DL (8.5-10.1) (8.5-10.1) Total Protein 4.5 GM/DL 4.5 GM/DL (6.4-8.2) (6.4-8.2) Imaging Last Impressions Abdomen X-Ray 04/10/16 0000 Signed Impressions: Service Date/Time: Sunday, April 10, 2016 16:41 - CONCLUSION: 1. Gaseous distention of multiple bowel loops which can be seen with ileus. 2. Left-sided renal calculi. Kwame Fountain MD Chest X-Ray 04/09/16 0000 Signed Impressions: Service Date/Time: Saturday, April 09, 2016 10:18 - CONCLUSION: Minimal fluid in the left base, otherwise negative. Leo Iverson MD FACR Renal Ultrasound 04/05/16 0600 Signed Impressions: Service Date/Time: March 07:52 - CONCLUSION: 1. Multiple nonobstructing calculi in the left renal collecting system, the largest measuring approximately 1.6 cm in diameter. 2. Benign-appearing renal cortical cysts in the right kidney. 3. Punctate echogenic foci in the cortex of the right kidney the junction of the upper and midpole is unchanged without shadowing and may represent a foci of renal cortical fat. 4. Increased echogenicity of the renal cortices symmetrically and bilaterally suggesting some degree of medical renal disease. 5. No significant change from prior. Manuel López MD Abdomen/Pelvis CT 04/02/16 1554 Signed Impressions: Service Date/Time: Saturday, April 02, 2016 18:41 - CONCLUSION: 1. Nonobstructing renal stones being much more numerous and larger on the left side. The central calcifications in the left kidney resemble a staghorn calculus. 2. Mild dilatation of the right collecting system and right ureter. This suggests there may have been a passed stone. A stone in the right ureter is not seen. 3. Destructive changes at the femoral heads bilaterally. These changes appear chronic. These changes could be secondary to underlying process such as prior avascular necrosis, prior trauma or prior inflammatory change including infection or inflammatory arthritis. Marquis Galo MD PE at Discharge Appearance Remarks At rest Eye Exam: Pupils Equal, Pupils Reactive Ears & Nose Exam: Nasal Mucosa [place] Throat Exam: Oral Mucosa [place] & Moist Neck Exam: Neck Supple, Trachea Midline Resp Exam: No Distress, Decreased Bases CV Exam: Regular GI Exam: Soft, Non-Tender, Bowel Sounds Present, Non-Distended GI Remarks We will complain of abdominal pain every once in a while. Taking minimal amounts of medications if any. MS Exam: Joints Intact, Atrophy Skin Exam: Warm, Dry Skin Remarks thin skin turgor, minimal recoil Extremities Exam: No Edema Neuro Exam: Alert, Awake, Speech Clear, Moving All Extremities, No Focal Deficits Hospital Course These are the diagnoses that were used to treat and monitor this patient's plan of care during the hospital stay. (1) Sepsis (2) HIV (human immunodeficiency virus infection) (3) UTI (lower urinary tract infection) (4) Metabolic acidosis (5) Hypophosphatemia (6) Nephrolithiasis (7) Malnourished (8) Thrush (9) Leukocytosis (10) Bilateral kidney stones (11) Hypokalemia (12) Anemia (13) Acute renal insufficiency appreciate nephrology input for abnormal chemistry levels including her phosphate level and potassium level, and metabolic acidosis. She is vital signs and labs were monitored. Labs daily and when necessary were used to monitor along with patient assessment. Medical management, gentle hydration Hypotension, resolved, gentle hydration medical management initially on admission. appreciate urology input for bilateral kidney stones, patient received hydration and monitoring of her urine output. [place] catheter for accurate I and O. These stones are seen to be nonobstructing, currently will continue with conservative management, but may need lithotripsy as OP. Anemia, monitored with lab work. Stable Leukocytosis, patient remains on antibiotic therapy throughout her hospital stay. Transient waxed and waned but patient is asymptomatic for any cough or fever. Monitored with labs, and for the most part had returned to a normal range for her. No cough, no fever. Medical management Approximately a week before her discharge patient was not eating, and refusing her medications set up for an occasional pain pill. Palliative care was consult to to review patient's wishes. Patient's sister was also called since she is the next of kin. Sister was not POA so was not a decision maker for now. Patient did note she did not want to be kept alive with artificial machines, but she did want to continue with medical management. CODE STATUS was changed to DO NOT RESUSCITATE, still received full aggressive care up to her heart stops or her breathing stops GI consult was done for possible PEG placed placement due to the patient not eating. She wanted to hold off and try to regain her appetite and begin eating over the past 3 days. She also started taking her medications again, and states that she does want to get better. She is more alert, understands simple conversations, and states that she is feeling better. Currently stabilized and patient is taking small amounts of solid food and liquids. Currently much more alert today continue Megace for appetite antiemetics PRN if patient gets nauseated Eating solid food today. States she wants to get better PT, OOB in chair with assistance Heparin for DVT prophylaxis Pepcid for GI prophylaxis Assessment/Plan Patient seen and examined eating well, took her medicines ok to d/c to SNF overall prognosis POOR. Patient has returned back to her baseline and is stable for discharge back to SNF. Excited about getting to go home. Pt Condition on Discharge: Fair Discharge Disposition: Discharge to SNF Discharge Instructions DIET: Follow Instructions for: As Tolerated, No Restrictions Activities you can perform: Regular-No Restrictions Follow up Referrals: Infectious Disease PCP Follow-up Continued Medications: Acetaminophen (Mapap) 325 Mg Tab 650 MG PO Q4HR PRN PAIN/TEMP>101 Ref 0 TAB Alendronate (Fosamax) 70 Mg Tab 70 MG PO Q7D Osteoporosis Treatment #4 Ref 0 TAB Nmjlmhws-Caraibctx-Ucrjlfnfqjh Liq (Mylanta Liq) 200-200-20 Mg/5 Ml Susp 30 ML PO Q4HR Take between meals or as directed. Shake well. Maximum 120 ml/24 hrs. PRN INDIGESTION Ref 0 ML Ascorbic Acid ([id number]) 1,000 Mg Tab 1000 MG PO DAILY Nutritional Supplement #30 Ref 0 TAB Atorvastatin (Atorvastatin) 20 Mg Tab 20 MG PO HS Cholesterol Management #30 Ref 0 TAB Bisacodyl Supp (Dulcolax Supp) 10 Mg Supp 10 MG RECTAL DIRECTED PRN IF NO BM FROM MOM #12 Ref 0 SUPP Calcium Carbonate (Antacid) (Tums) 500 Mg Chew 500 MG CHEW Q12HR Heartburn Management Ref 0 TAB Calcium Carbonate-Cholecalciferol (Calcium 600 with Vitamin D) 600-400 mg-Unit Tab 1 TAB PO BID Calcium Supplement Ref 0 TAB Cyanocobalamin (B-12) 1,000 Mcg Subl 1000 MCG PO BID Nutritional Supplement Ref 0 TAB.SL Darunavir-Cobicistat (Prezcobix) 800-150 Mg Tab 1 TAB PO DAILY Mgmt Viral Infection #30 Ref 0 TAB Docusate Sodium (Colace) 100 Mg Cap 100 MG PO TID Constipation #60 Ref 0 CAP Dolutegravir (Tivicay) 50 Mg Tab 50 MG PO DAILY Mgmt Viral Infection #30 Ref 0 TAB Emtricitabine-Tenofovir Alafenamide (Descovy) 200-25 mg Tab 1 TAB PO DAILY Mgmt Viral Infection #30 Ref 0 TAB Fenofibrate (Fenofibrate) 160 Mg Tab 160 MG PO DAILY Cholesterol Management #30 Ref 0 TAB Ferrous Sulfate (Ferrous Sulfate) 325 Mg Tab 325 MG PO TID Nutritional Supplement #30 Ref 0 TAB Furosemide (Lasix) 40 Mg Tab 40 MG PO DAILY @ 1300 #30 Ref 0 TAB Gabapentin (Gabapentin) 300 Mg Cap 300 MG PO Q8HR #90 Ref 0 CAP Latanoprost Opth Drops (Latanoprost Opth Drops) 0.005% Drops 1 DROP EACH EYE HS Refrigerate until opened. Glaucoma #2.5 Ref 0 ML Levothyroxine (Levothyroxine) 50 Mcg Tab 50 MCG PO DAILY Thyroid #30 Ref 0 TAB Loperamide (Loperamide) 2 Mg Cap 2 MG PO DIRECTED Give two capsules for the initial dose then, One capsule after each loose stool. Not to exceed 8 capsules per day. PRN DIARRHEA Ref 0 CAP Magnesium Hydroxide Liq (Milk of Magnesia Liq) 400 Mg/5 Ml Susp 30 ML PO Q4HR PRN CONSTIPATION #1 Ref 0 BOTTLE Megestrol Liq (Megace Liq) 40 Mg/Ml Susp 400 MG PO DAILY Improve Appetite Ref 0 ML Multiple Vitamins W/ Minerals (Thera-M) 1 Tab 1 TAB PO DAILY Nutritional Supplement Ref 0 TAB Omeprazole (Omeprazole) 20 Mg Cap 20 MG PO DAILY Polyethylene Glycol 3350 Powder (Miralax Powder) 17 Gm Powd 17 GM PO DAILY Mix and dissolve one measuring cap-ful (17 grams) in water or juice. Constipation #1 Ref 0 BOTTLE Potassium Chloride ER (Potassium Chloride ER) 20 Meq Tab 40 MEQ PO DAILY Electrolyte Replacement #30 Ref 0 TAB Sennosides-Docusate Sodium (Senna-S 8.6-50 mg) 1 Tab Tab 1 TAB PO TID Sertraline (Zoloft) 25 Mg Tab 25 MG PO DAILY #30 Ref 0 TAB Sodium Phosphates Rectal (Fleet Enema Rectal) 7-19 Gm/118 Ml Enem 118 ML RECTAL DIRECTED PRN IF NO BM FROM DULCOLAX Ref 0 BOTTLE Discontinued Medications: Hydrocodone-Acetaminophen (Lortab) 5-325 Mg Tab 1 TAB PO TID Pain Management Ref 0 TAB Prochlorperazine Maleate (Prochlorperazine Maleate) 10 Mg Tab 10 MG PO TID PRN NAUSEA OR VOMITING Ref 0 TAB Prochlorperazine Supp (Prochlorperazine Supp) 25 Mg Supp 25 MG RECTAL QID Nausea #3 Ref 0 SUPP Kinza Nieto Apr 18, 2016 17:45
== END 2016-04-18 17:54 | DRG 974 ==
LOC: NEPA 15:39 → INTOOBSV 20:19 → NEDA 20:19 → NEPHCDU 23:16 → OBSVTOIN 04-04 10:00 → N07B 04-07 12:16
PROVIDERS: ADMIT Specialist; ATTEND Specialist
DX: B20 Human immunodeficiency virus [HIV] disease (principal); A41.51 Sepsis due to Escherichia coli [E. coli]; N17.0 Acute kidney failure with tubular necrosis; E43 Unspecified severe protein-calorie malnutrition; L89.303 Pressure ulcer of unspecified buttock, stage 3; E87.2 Acidosis; R64 Cachexia; K56.7 Ileus, unspecified; E86.0 Dehydration; E72.09 Other disorders of amino-acid transport; E87.1 Hypo-osmolality and hyponatremia; N13.6 Pyonephrosis; E83.39 Other disorders of phosphorus metabolism; N20.0 Calculus of kidney; I12.9 Hypertensive chronic kidney disease with stage 1 through stage 4 chronic kidney disease, or unspecified chronic kidney disease; N18.9 Chronic kidney disease, unspecified; K21.9 Gastro-esophageal reflux disease without esophagitis; E03.9 Hypothyroidism, unspecified; E78.5 Hyperlipidemia, unspecified; E87.6 Hypokalemia; D64.9 Anemia, unspecified; R62.7 Adult failure to thrive; M19.011 Primary osteoarthritis, right shoulder; M19.012 Primary osteoarthritis, left shoulder; F39 Unspecified mood [affective] disorder; M16.0 Bilateral primary osteoarthritis of hip; T37.5X5A Adverse effect of antiviral drugs, initial encounter; Z66 Do not resuscitate; Z68.20 Body mass index [BMI] 20.0-20.9, adult; Z87.891 Personal history of nicotine dependence; Z99.3 Dependence on wheelchair
CPT/HCPCS: 36430; 71010; 74000; 74177; 76775; 76937; 80048; 80053; 80069; 81001; 82272; 82306; 82436; 82550; 82570; 82728; 83540; 83550; 83605; 83690; 83735; 84100; 84105; 84133; 84155; 84156; 84165; 84300; 84484; 85007; 85025; 85027; 85610; 85730; 86355; 86357; 86359; 86360; 86850; 86900; 86901; 86920; 87040; 87077; 87086; 87186; 87804; 93005; 96361; 96374; G0378; G8987-GP; G8988-GP; J0692; J0696; J1644; J2405; J3480; J7030; J7040; J7050; J7070; P9016; P9612; Q9963